=== PATIENT | male | born 1950 | race Caucasian/White ===

== ENCOUNTER 2016-10-31 18:11 | Emergency (ER) | payer OTHER ==
[2016-10-31 18:38] VITALS: BP 145/89
[2016-10-31] MEDS ORDERED: Sodium Chloride 0.9% 10 ML Syringe FLUSH PRN (19:07)
--- NOTE | 2016-10-31 19:14 | EDM.PDOC ---
ED HPI GENERAL MEDICAL PROBLEM - General Chief Complaint: Lower Extremity Injury/Pain Stated Complaint: RIGHT LEG SWOLLEN Time Seen by Provider: 10/31/16 18:50 Source of Information: Reports: Patient History Limitations: Reports: No Limitations - History of Present Illness INITIAL COMMENTS - FREE TEXT/NARRATIVE: Patient is a 66-year-old male who presents to the ED complaining or right leg swelling. States this developed approximately one to 2 wks ago that has progressively getting worse. Has mild pain associated to his foot and lower leg due to the tautness of skin. He does have multiple small abrasions to the lower aspect of his legs secondary to new kitten scratching and biting him. There is no increased warmth or redness noted. There is no purulent drainage noted. Patient's concern he may have a blood clot. He underwent mitral valve replacement, tissue valve replacement in January of 2016. He is not on any water pills or aspirin at this time. Denies CP, SOB, Fever/chills, n/v, abdominal pain, or any additional complaints. Additional history hypercholesterolemia, hypertension, ulcerative colitis, migraines. Surgical history mitral valve replacement, carotid endarterectomy bilateral, colonoscopy. He has no history of DVT/PE. Right Feet Pain Score (Numeric/FACES): 3 - Related Data Allergies Allergy/AdvReac Type Severity Reaction Status Date / Time No Known Allergies Allergy Verified 03/24/16 14:37 Home Meds: Home Meds Lansoprazole [Prevacid] 30 mg PO ASDIRECTED 02/23/16 [History] Metoprolol Tartrate [Lopressor] 25 mg PO Q12HR 02/23/16 [History] Naproxen Sodium [Aleve] 220 mg PO ASDIRECTED PRN 02/23/16 [History] traMADol HCl [Ultram] 50 mg PO Q4H PRN 02/23/16 [History] Aspirin [Halfprin] 81 mg PO DAILY 10/31/16 [History] Past Medical History HEENT History: Reports: Impaired Vision Other HEENT History: wears eyeglasses Cardiovascular History: Reports: Heart Murmur, High Cholesterol, Hypertension, Other (See Below) Other Cardiovascular History: mitral valve replaced Other Gastrointestinal History: ulcertive colitis Neurological History: Reports: Migraines Endocrine/Metabolic History: Reports: Other (See Below) Other Endocrine/Metabolic History: states has hypoglycemia - Infectious Disease History Infectious Disease History: Reports: Chicken Pox, Measles, Mumps, Rheumatic Fever - Past Surgical History Cardiovascular Surgical History: Reports: Carotid Endarterectomy GI Surgical History: Reports: Colonoscopy Social & Family History - Tobacco Use Smoking Status *Q: Never Smoker Second Hand Smoke Exposure: No - Caffeine Use Caffeine Use: Reports: Coffee - Alcohol Use Days Per Week of Alcohol Use: 0 - Recreational Drug Use Recreational Drug Use: No Review of Systems - Review of Systems Review Of Systems: See Below Constitutional: Denies: Fever Respiratory: Denies: Shortness of Breath, Wheezing, Pleuritic Chest Pain, Cough , Sputum, Hemoptysis Cardiovascular: Reports: Edema. Denies: Chest Pain, Irregular Heart Rate, Lightheadedness, Palpitations, Syncope GI/Abdominal: Denies: Abdominal Pain, Diarrhea, Nausea, Vomiting Genitourinary: Denies: Dysuria Musculoskeletal: Reports: Leg Pain Skin: Reports: Wound. Denies: Rash Neurological: Denies: Numbness, Tingling, Difficulty Walking ED EXAM, GENERAL - Physical Exam Exam: See Below Exam Limited By: No Limitations General Appearance: Alert, WD/WN, No Apparent Distress Ears: Hearing Grossly Normal Nose: Normal Inspection Throat/Mouth: Normal Inspection, Normal Oropharynx, Normal Voice, No Airway Compromise Head: Atraumatic, Normocephalic Neck: Normal Inspection, Supple, Non-Tender, Full Range of Motion. No: Carotid Bruit, Lymphadenopathy (L), Lymphadenopathy (R) Respiratory/Chest: No Respiratory Distress, Lungs Clear, Normal Breath Sounds, No Accessory Muscle Use, Chest Non-Tender Cardiovascular: Normal Peripheral Pulses, Regular Rate, Rhythm, Systolic Murmur Peripheral Pulses: 2+: Radial (R), Posterior Tibial (L), Posterior Tibial (R), Dorsalis Pedis (L), Dorsalis Pedis (R) GI/Abdominal: Normal Bowel Sounds, Soft, Non-Tender, No Organomegaly, No Distention Back Exam: Normal Inspection Extremities: Normal Range of Motion, Normal Capillary Refill, Pedal Edema (2+ right leg up to knee, minimal pain, no redness/drainage/purulent drainage. Multiple small abrasions to lower leg. ) Neurological: Alert, Oriented, CN II-XII Intact, Normal Cognition, No Motor/ Sensory Deficits Psychiatric: Normal Affect, Normal Mood Skin Exam: Warm, Dry, Normal Color Course - Vital Signs Last Recorded V/S: Last Vital Signs Temp 97.4 F 10/31/16 18:36 Pulse 86 10/31/16 18:36 Resp 20 10/31/16 18:36 BP 145/89 H 10/31/16 18:36 Pulse Ox 98 10/31/16 18:36 - Orders/Labs/Meds Orders: Active Orders 24 hr Category Date Time Status Peripheral IV Care [RC] . DIRECTED Care 10/31/16 19:08 Active VL Duplex Lwr Ext Veins Ltd Rt [US] Stat Exams 10/31/16 19:07 Taken Peripheral IV Insertion Adult [OM.PC] Stat Oth 10/31/16 19:07 Ordered Labs: Laboratory Tests 10/31/16 10/31/16 10/31/16 Range/Units 19:37 19:37 19:37 WBC 9.50 H (4.23-9.07) K/mm3 RBC 5.11 (4.63-6.08) M/mm3 Hgb 15.4 (13.7-17.5) gm/L Hct 44.7 (40.1-51.0) % MCV 87.5 (79.0-92.2) fl MCH 30.1 (25.7-32.2) pg MCHC 34.5 (32.2-35.5) g/dl RDW Std Deviation 46.7 H (35.1-43.9) fL Plt Count 208 (163-337) K/mm3 MPV 9.7 (9.4-12.3) fl Neut % (Auto) 54.3 (34.0-67.9) % Lymph % (Auto) 30.2 (21.8-53.1) % Baca % (Auto) 8.8 (5.3-12.2) % Eos % (Auto) 5.7 (0.8-7.0) Baso % (Auto) 0.7 (0.1-1.2) % Neut # (Auto) 5.15 (1.78-5.38) K/mm3 Lymph # (Auto) 2.87 (1.32-3.57) K/mm3 Baca # (Auto) 0.84 H (0.30-0.82) K/mm3 Eos # (Auto) 0.54 (0.04-0.54) K/mm3 Baso # (Auto) 0.07 (0.01-0.08) K/mm3 PT 10.9 (8.0-13.0) SECONDS INR 1.00 APTT 29 (22-36) SECONDS D-Dimer, Quantitative (0.19-0.59) mg/L Sodium 138 (136-145) mEq/L Potassium 4.2 (3.5-5.1) mEq/L Chloride 102 (98-107) mEq/L Carbon Dioxide 24 (21-32) mEq/L Anion Gap 16.2 H (5-15) BUN 22 H (7-18) mg/dL Creatinine 1.0 (0.7-1.3) mg/dL Est Cr Clr Drug Dosing 72.20 mL/min Estimated GFR (MDRD) > 60 (>60) mL/min BUN/Creatinine Ratio 22.0 H (14-18) Glucose 103 (80-115) mg/dL Calcium 8.8 (8.5-10.1) mg/dL Total Bilirubin 0.5 (0.2-1.0) mg/dL AST 21 (15-37) U/L ALT (16-63) U/L Alkaline Phosphatase (46-116) U/L C-Reactive Protein 0.8 (<1.0) mg/dL Total Protein 7.6 (6.4-8.2) g/dl Albumin 3.9 (3.4-5.0) g/dl Globulin 3.7 gm/dL Albumin/Globulin Ratio 1.1 (1-2) 10/31/16 Range/Units 19:37 WBC (4.23-9.07) K/mm3 RBC (4.63-6.08) M/mm3 Hgb (13.7-17.5) gm/L Hct (40.1-51.0) % MCV (79.0-92.2) fl MCH (25.7-32.2) pg MCHC (32.2-35.5) g/dl RDW Std Deviation (35.1-43.9) fL Plt Count (163-337) K/mm3 MPV (9.4-12.3) fl Neut % (Auto) (34.0-67.9) % Lymph % (Auto) (21.8-53.1) % Baca % (Auto) (5.3-12.2) % Eos % (Auto) (0.8-7.0) Baso % (Auto) (0.1-1.2) % Neut # (Auto) (1.78-5.38) K/mm3 Lymph # (Auto) (1.32-3.57) K/mm3 Baca # (Auto) (0.30-0.82) K/mm3 Eos # (Auto) (0.04-0.54) K/mm3 Baso # (Auto) (0.01-0.08) K/mm3 PT (8.0-13.0) SECONDS INR APTT (22-36) SECONDS D-Dimer, Quantitative 0.48 (0.19-0.59) mg/L Sodium (136-145) mEq/L Potassium (3.5-5.1) mEq/L Chloride (98-107) mEq/L Carbon Dioxide (21-32) mEq/L Anion Gap (5-15) BUN (7-18) mg/dL Creatinine (0.7-1.3) mg/dL Est Cr Clr Drug Dosing mL/min Estimated GFR (MDRD) (>60) mL/min BUN/Creatinine Ratio (14-18) Glucose (80-115) mg/dL Calcium (8.5-10.1) mg/dL Total Bilirubin (0.2-1.0) mg/dL AST (15-37) U/L ALT (16-63) U/L Alkaline Phosphatase (46-116) U/L C-Reactive Protein (<1.0) mg/dL Total Protein (6.4-8.2) g/dl Albumin (3.4-5.0) g/dl Globulin gm/dL Albumin/Globulin Ratio (1-2) Meds: Medications Discontinued Medications Generic Name Dose Route Start Last Admin Trade Name Freq PRN Reason Stop Dose Admin Sodium Chloride 10 ml 10/31/16 19:07 10/31/16 19:39 Saline Flush FLUSH 10 ml ASDIRECTED PRN Administration Keep Vein Open - Re-Assessments/Exams Free Text/Narrative Re-Assessment/Exam: Ordered peripheral IV, CBC, chem 14, CRP, PT/INR, PTT, also in the right lower extremity, and d-dimer. Also in the right lower leg impression normal right lower extremity duplex venous ultrasound.. Labs reviewed: CBC and chem 14 essentially normal. CRP within normal limits.D- dimer was within normal limits. Differential diagnosis for your unilateral swelling includes venous insufficiency, cellulitis, DVT, as well obstruction of vascular structures secondary to tumor/cancer. The patient does not have a DVT and labs and clinical findings do not suggest cellulitis. Patient denies any history of cancer. Thus most likely associated with venous insufficiency. Swelling does improve overnight with laying flat. LEORA stockings have been ordered and the patient will be discharged home. He will follow up with his primary care provider in one week for further evaluation and treatment. Discharge instructions as documented. Departure - Departure Time of Disposition: 20:59 Disposition: Home, Self-Care 01 Condition: good Clinical Impression: Swelling of right lower extremity - Discharge Information Instructions: Peripheral Edema Referrals: Radha Spicer PA-C [Primary Care Provider] - Rahel Darby [Physician] - Forms: ED Department Discharge Additional Instructions: Wear leora stocking most hours of the day. Elevating when able to reduce swelling. Call and make an appt with Dr. Ray [facility]CP [facility] tomorrow to be evaluated in one wk. Return to the E.D. for any new or worsening symptoms. - My Orders Last 24 Hours: My Active Orders 10/31/16 19:07 VL Duplex Lwr Ext Veins Ltd Rt [US] Stat Peripheral IV Insertion Adult [OM.PC] Stat 10/31/16 19:08 Peripheral IV Care [RC] . DIRECTED - Assessment/Plan Last 24 Hours: My Active Orders 10/31/16 19:07 VL Duplex Lwr Ext Veins Ltd Rt [US] Stat Peripheral IV Insertion Adult [OM.PC] Stat 10/31/16 19:08 Peripheral IV Care [RC] . DIRECTED
--- NOTE | 2016-11-01 13:03 | US ---
Right lower extremity deep venous ultrasound: Duplex and color flow imaging was obtained of the right common femoral, proximal greater saphenous, superficial femoral, popliteal, posterior tibial and peroneal veins. Left common femoral vein was also evaluated. Findings: Subcutaneous edema noted within the right calf. Normal phasic flow, augmentation and compression are seen. Impression: 1. Soft tissue edema within the calf. 2. No evidence of deep venous thrombosis is seen within the right lower extremity or within the left common femoral vein. Diagnostic code #2 Agree with preliminary report issued by [facility] ([facility] preliminary report dictated on 10/31/16, 9:33 PM Central Time)
== END 2016-10-31 21:10 | disposition home or self-care (01) ==
LOC: JD.ED 18:11
DX: M79.89 Other specified soft tissue disorders (principal); I10 Essential (primary) hypertension; E78.00 Pure hypercholesterolemia, unspecified; G43.909 Migraine, unspecified, not intractable, without status migrainosus; Z98.890 Other specified postprocedural states; Z79.82 Long term (current) use of aspirin; Z95.2 Presence of prosthetic heart valve
CPT/HCPCS: 36415; 80053; 85025; 85379; 85610; 85730; 86140; 93971; 99284; J7050; 99283

== ENCOUNTER 2017-12-07 02:17 | Emergency (ER) | payer OTHER, MEDICARE ==
[2017-12-07] MEDS ORDERED: Morphine 10 MG/ML Syringe IVPUSH ONE (03:16)
[2017-12-07] MEDS ORDERED: Sodium Chloride 0.9% 1,000 ML IV SCH (03:30)
[2017-12-07] MEDS ORDERED: Ondansetron 4 MG/2 ML SDV IVPUSH ONE (03:34)
[2017-12-07] MEDS ORDERED: Iopamidol 612 MG/ML 150 ML Bottle IVPUSH ONE (04:32)
[2017-12-07] MEDS ORDERED: Diatrizoate Meglumine/Diatrizoate Sodium 37% 120 ML Bottle PO ONE (04:32)
--- NOTE | 2017-12-07 06:14 | EDM.PDOC ---
Addendum entered and electronically signed by Alen Hunter MD 12/07/17 08 :56: I was able to speak to his Pippa in regards to the radiologist's finding of 2 small stones within the neck of the gallbladder. They will follow-up as needed. Addendum entered and electronically signed by Alen Hunter MD 12/07/17 08 :47: Radiologist reports several samll gallstones are appreciated in the neck of the gallbladder.No gallbladder wall thickening appreciated. no rosana cholecystic fluid. Original Note: <Alen Hunter - Last Filed: 12/07/17 08:18> ED HPI GENERAL MEDICAL PROBLEM - General Chief Complaint: Abdominal Pain Stated Complaint: ABDOMINAL PAIN Time Seen by Provider: 12/07/17 02:57 - Related Data Allergies Allergy/AdvReac Type Severity Reaction Status Date / Time No Known Allergies Allergy Verified 12/07/17 02:34 Home Meds: Home Meds Lansoprazole [Prevacid] 30 mg PO ASDIRECTED 02/23/16 [History] Metoprolol Tartrate [Lopressor] 25 mg PO Q12HR 02/23/16 [History] Naproxen Sodium [Aleve] 220 mg PO ASDIRECTED PRN 02/23/16 [History] traMADol HCl [Ultram] 50 mg PO Q4H PRN 02/23/16 [History] Aspirin [Halfprin] 81 mg PO DAILY 10/31/16 [History] Course - Vital Signs Last Recorded V/S: Last Vital Signs Temp 98.5 F 12/07/17 02:30 Pulse 66 12/07/17 08:25 Resp 14 12/07/17 08:25 BP 115/82 12/07/17 08:25 Pulse Ox 97 12/07/17 08:25 - Orders/Labs/Meds Labs: Laboratory Tests 12/07/17 12/07/17 12/07/17 Range/Units 02:32 02:32 02:32 WBC 8.06 (4.23-9.07) K/mm3 RBC 5.16 (4.63-6.08) M/mm3 Hgb 15.6 (13.7-17.5) gm/L Hct 45.8 (40.1-51.0) % MCV 88.8 (79.0-92.2) fl MCH 30.2 (25.7-32.2) pg MCHC 34.1 (32.2-35.5) g/dl RDW Std Deviation 47.6 H (35.1-43.9) fL Plt Count 206 (163-337) K/mm3 MPV 9.6 (9.4-12.3) fl Neutrophils % (Manual) 64 H (40-60) % Band Neutrophils % 0 (0-10) % Lymphocytes % (Manual) 14 L (20-40) % Atypical Lymphs % 7 % Monocytes % (Manual) 9 (2-10) % Eosinophils % (Manual) 5 (0.8-7.0) % Basophils % (Manual) 1 (0.2-1.2) Platelet Estimate Adequate Plt Morphology Comment Normal RBC Morph Comment Normal Sodium 141 (136-145) mEq/L Potassium 4.1 (3.5-5.1) mEq/L Chloride 104 (98-107) mEq/L Carbon Dioxide 29 (21-32) mEq/L Anion Gap 12.1 (5-15) BUN 26 H (7-18) mg/dL Creatinine 1.1 (0.7-1.3) mg/dL Est Cr Clr Drug Dosing TNP Estimated GFR (MDRD) > 60 (>60) mL/min BUN/Creatinine Ratio 23.6 H (14-18) Glucose 131 H (80-115) mg/dL Lactic Acid (0.4-2.0) mmol/L Calcium 9.6 (8.5-10.1) mg/dL Total Bilirubin 0.6 (0.2-1.0) mg/dL AST 44 H (15-37) U/L ALT 65 H (16-63) U/L Alkaline Phosphatase 78 (46-116) U/L Troponin I < 0.017 (0.00-0.056) ng/mL Total Protein 7.7 (6.4-8.2) g/dl Albumin 3.9 (3.4-5.0) g/dl Globulin 3.8 gm/dL Albumin/Globulin Ratio 1.0 (1-2) Lipase 279 (73-393) U/L 12/07/17 Range/Units 03:30 WBC (4.23-9.07) K/mm3 RBC (4.63-6.08) M/mm3 Hgb (13.7-17.5) gm/L Hct (40.1-51.0) % MCV (79.0-92.2) fl MCH (25.7-32.2) pg MCHC (32.2-35.5) g/dl RDW Std Deviation (35.1-43.9) fL Plt Count (163-337) K/mm3 MPV (9.4-12.3) fl Neutrophils % (Manual) (40-60) % Band Neutrophils % (0-10) % Lymphocytes % (Manual) (20-40) % Atypical Lymphs % % Monocytes % (Manual) (2-10) % Eosinophils % (Manual) (0.8-7.0) % Basophils % (Manual) (0.2-1.2) Platelet Estimate Plt Morphology Comment RBC Morph Comment Sodium (136-145) mEq/L Potassium (3.5-5.1) mEq/L Chloride (98-107) mEq/L Carbon Dioxide (21-32) mEq/L Anion Gap (5-15) BUN (7-18) mg/dL Creatinine (0.7-1.3) mg/dL Est Cr Clr Drug Dosing Estimated GFR (MDRD) (>60) mL/min BUN/Creatinine Ratio (14-18) Glucose (80-115) mg/dL Lactic Acid 2.0 (0.4-2.0) mmol/L Calcium (8.5-10.1) mg/dL Total Bilirubin (0.2-1.0) mg/dL AST (15-37) U/L ALT (16-63) U/L Alkaline Phosphatase (46-116) U/L Troponin I (0.00-0.056) ng/mL Total Protein (6.4-8.2) g/dl Albumin (3.4-5.0) g/dl Globulin gm/dL Albumin/Globulin Ratio (1-2) Lipase (73-393) U/L Meds: Medications Discontinued Medications Generic Name Dose Route Start Last Admin Trade Name Freq PRN Reason Stop Dose Admin Al Hydroxide/Mg Hydroxide 30 0 ml 12/07/17 06:27 12/07/17 06:38 ml/ Lidocaine HCl 15 ml PO 12/07/17 06:28 45 ml ONETIME ONE Administration Diatrizoate Meglum/Diatrizoate Sod 90 ml 12/07/17 04:32 12/07/17 05:09 Gastrografin 37% PO 12/07/17 04:33 90 ml ONETIME ONE Administration Sodium Chloride 1,000 mls @ 125 mls/hr 12/07/17 03:30 12/07/17 03:28 Normal Saline IV 125 mls/hr ASDIRECTED BARBER Administration Sodium Chloride 500 mls @ 500 mls/hr 12/07/17 06:28 12/07/17 06:39 Normal Saline IV 12/07/17 07:27 500 mls/hr .BOLUS ONE Administration Iopamidol 125 ml 12/07/17 04:32 12/07/17 05:09 Isovue-300 (61%) IVPUSH 12/07/17 04:33 125 ml ONETIME ONE Administration Magnesium Citrate 240 ml 12/07/17 08:19 Citrate Of Magnesia PO 12/07/17 08:20 ONETIME ONE Morphine Sulfate 6 mg 12/07/17 03:16 12/07/17 03:28 Morphine IVPUSH 12/07/17 03:17 6 mg ONETIME ONE Administration Ondansetron HCl 4 mg 12/07/17 03:34 12/07/17 03:39 Zofran IVPUSH 12/07/17 03:35 4 mg ONETIME ONE Administration - Re-Assessments/Exams Free Text/Narrative Re-Assessment/Exam: 12/07/17 08:18 ultrasound of the gallbladder is normal. There is no gallbladder wall thickening. No stones identified. Reexamined the patient reveals him to be nontender. He does remain somewhat distended. I believe this is likely secondary to increased stool throughout the ascending colon and transverse colon identified on CT exam. Plan I'm going to give the patient 7 ounces of magnesium citrate to drink with 5-6 ounces of juice of choice to provide bowel cleanse. He can do this at home. Departure - Departure Disposition: Home, Self-Care 01 Clinical Impression: Fluid volume depletion, Renal stones Abdominal pain Qualifiers: Abdominal location: upper abdomen, unspecified Qualified Code(s): R10.10 - Upper abdominal pain, unspecified - Discharge Information Instructions: Abdominal Pain, Adult, [id number], Kidney Stones, [id number] Referrals: Chyna Corona MD [Primary Care Provider] - 3 Days Forms: ED Department Discharge Additional Instructions: Evaluation the emergency room this morning in regards to development of diffuse abdominal pain particularly right upper quadrant abdominal pain that awoke him from sleep. Dr. Levi had evaluated you and felt there was some possibility of potential gallbladder involvement in your pain syndrome. You're very tender in the right upper quadrant of the abdomen on examination. CT scan of the abdomen had been performed which revealed no obvious gallstones and no gallbladder wall thickening or fluid around the gallbladder to suggest acute inflammation. Laboratory tests also came back negative in this regard showing no signs of infection or inflammation. I noted on the CT scan that there is increased stool throughout the right hemicolon and the transverse colon which lives across the upper abdomen and the right side of the abdomen. I also could not identify any other abnormalities on CT exam. An ultrasound of the gallbladder had already been ordered and was carried out this morning . It too does not reveal any signs of gallstones or active inflammation of the gallbladder. I suspect recurrent pain syndrome is due to constipation involving the right hemicolon. Suggest treatment with magnesium citrate or Citroma 8 ounces by mouth mixed with 3-4 ounces of juice of choice. Take this when you get home this morning. He will take 1-2 hours to work but will usually make her bowels work 3-4 times often ending in some degree of diarrhea. This should relieve your abdominal pain and discomfort. Pain or discomfort after bowel cleanse then consider returning to medical care. In review of this chart and the patient's laboratory/ultrasound findings there are gallstones noted to be in the neck of the gallbladder. Patient should be notified of these findings and given referral to surgery for follow-up. ( ) <Liza Levi - Last Filed: 12/08/17 06:51> ED HPI GENERAL MEDICAL PROBLEM - General Source of Information: Reports: Patient, Family History Limitations: Reports: No Limitations - History of Present Illness Onset: Sudden Duration: Hour(s): (36) Location: Reports: Abdomen Quality: Reports: Ache, Sharp Severity: Severe Improves with: Reports: None Worsens with: Reports: Movement Associated Symptoms: Reports: Headaches, Malaise, Nausea/Vomiting, Shortness of Breath (secondary to pain). Denies: Chest Pain, Diaphoresis, Fever/Chills, Rash , Seizure, Syncope Abdominal Pain Score (Numeric/FACES): 10 Past Medical History HEENT History: Reports: Impaired Vision Other HEENT History: wears eyeglasses Cardiovascular History: Reports: Heart Murmur, High Cholesterol, Hypertension, Other (See Below) Other Cardiovascular History: mitral valve replaced Other Gastrointestinal History: ulcertive colitis Neurological History: Reports: Migraines Endocrine/Metabolic History: Reports: Other (See Below) Other Endocrine/Metabolic History: states has hypoglycemia - Infectious Disease History Infectious Disease History: Reports: Chicken Pox, Measles, Mumps, Rheumatic Fever - Past Surgical History Cardiovascular Surgical History: Reports: Carotid Endarterectomy GI Surgical History: Reports: Colonoscopy Social & Family History - Tobacco Use Smoking Status *Q: Never Smoker - Caffeine Use Caffeine Use: Reports: Coffee ED ROS GENERAL - Review of Systems Review Of Systems: See Below Constitutional: Denies: Fever, Chills, Weakness HEENT: Reports: No Symptoms Respiratory: Reports: No Symptoms Cardiovascular: Reports: No Symptoms Endocrine: Reports: No Symptoms GI/Abdominal: Reports: Abdominal Pain, Distension, Nausea. Denies: Black Stool , Bloody Stool, Constipation, Diarrhea, Decreased Appetite, Difficulty Swallowing, Flatus, Hematemesis, Hematochezia, Melena, Vomiting : Reports: No Symptoms Musculoskeletal: Reports: No Symptoms Skin: Reports: No Symptoms Neurological: Reports: Dizziness, Headache Psychiatric: Reports: No Symptoms Hematologic/Lymphatic: Reports: No Symptoms Immunologic: Reports: No Symptoms ED EXAM, GI/ABD - Physical Exam Exam: See Below Exam Limited By: No Limitations General Appearance: Alert, Anxious, Moderate Distress Eyes: Bilateral: Normal Appearance, EOMI Ears: Normal External Exam, Normal Canal, Hearing Grossly Normal Nose: Normal Inspection, Normal Mucosa, No Blood Throat/Mouth: Normal Inspection, Normal Lips, Normal Teeth, Normal Gums, Normal Oropharynx, Normal Voice, No Airway Compromise Head: Atraumatic, Normocephalic Neck: Normal Inspection, Supple, Non-Tender, Full Range of Motion Respiratory/Chest: No Respiratory Distress, Lungs Clear, Normal Breath Sounds, No Accessory Muscle Use, Chest Non-Tender. No: Respiratory Distress Cardiovascular: Normal Peripheral Pulses, Regular Rate, Rhythm, No Edema, No Murmur GI/Abdominal Exam: Soft, Guarding, Tender. No: Non-Tender, No Distention, No Abnormal Bruit, No Mass Rectal (Males) Exam: Normal Exam, Normal Rectal Tone, Heme - Stool. No: Black Stool, Bloody Stool Back Exam: Normal Inspection, Full Range of Motion Extremities: Normal Inspection, Normal Range of Motion, Non-Tender, Normal Capillary Refill, Pedal Edema. No: Leg Pain, Redness Neurological: Alert, Oriented, CN II-XII Intact, Normal Cognition, Normal Gait Psychiatric: Normal Affect, Normal Mood Skin Exam: Warm, Dry, Intact, Normal Color, No Rash Lymphatic: Adenopathy Course - Radiology Interpretation Free Text/Narrative:: Patient had a CAT scan of the abdomen and pelvis with contrast. Impression is no acute findings to explain reported syndromes. Patient was not found to have an aneurysm. He did have a small fat-containing umbilical hernia. Degenerative changes in the spine and particularly L5 on S1. Patient was noted to have a large duodenal diverticulum but no intestinal obstruction. He has colonic diverticuli and are identified but there is no evidence of CT with diverticulitis. Departure - Departure Time of Disposition: 06:15 Condition: Good - Discharge Information *PRESCRIPTION DRUG MONITORING PROGRAM REVIEWED*: Not Applicable *COPY OF PRESCRIPTION DRUG MONITORING REPORT IN PATIENT JUAN: Not Applicable
[2017-12-07] MEDS ORDERED: Alum Hydrox/Mag Hydrox/Simeth 30 ML, Lidocaine 2% 15 ML PO ONE ×2 (06:27)
[2017-12-07] MEDS ORDERED: Sodium Chloride 0.9% 500 ML IV ONE (06:28)
[2017-12-07] MEDS ORDERED: Magnesium Citrate Solution 296 ML Bottle PO ONE (08:19)
[2017-12-07 08:34] VITALS: BP 115/82
--- NOTE | 2017-12-07 08:43 | US ---
Limited abdominal ultrasound: Multiple real-time images of the upper right abdomen were obtained. Comparison: Previous ultrasound exam is not available, recent CT study of 12/07/17 at 5 AM) Liver is echogenic compatible with fatty infiltration. Slight focal fatty sparing is seen next to the gallbladder. No gallbladder wall thickening is seen. Several gallstones are felt to be present within the gallbladder neck. No biliary duct dilatation is seen. Small cyst is identified within the upper right kidney measuring about 1.1 cm. Right kidney is otherwise unremarkable by ultrasound exam. Inferior vena cava is patent. Portal vein shows normal hepatopedal flow. Pancreas is incompletely seen due to bowel gas. Visualized portions of the pancreas are within normal limits. Impression: 1. Fatty infiltration within the liver with focal fatty sparing next to the gallbladder. 2. Several gallstones felt to be present within the gallbladder neck. No gallbladder wall thickening or biliary duct dilatation is seen. 3. Incidental small upper pole renal cyst on the right side. Diagnostic code #3
--- NOTE | 2017-12-07 10:14 | CT ---
CT abdomen and pelvis Technique: Multiple axial sections were obtained from slightly below the top of the liver inferiorly through the pubic symphysis. Intravenous and oral contrast was utilized. Delayed images were also obtained from above the liver inferiorly through the pubic symphysis. Comparison: Prior CT abdomen and pelvis exam of 05/21/14. Findings: Small portion of the visualized lung bases are clear. Elevated right hemidiaphragm is noted. Liver shows fatty infiltration. No focal abnormality is appreciated within the liver. Gallbladder contains no calcified gallstones. Spleen appears within normal limits. Adrenal glands show no nodule. Pancreas appears within normal limits. Kidneys show symmetric contrast enhancement without hydronephrosis. Small cyst is noted inferiorly within the right kidney measuring about 1 cm. 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 No ureteral dilatation is seen. Bladder shows contrast. Aorta shows atherosclerotic change which continues into the iliac vessels. Prior surgery noted within the anterior right lower abdomen/pelvis. No free fluid or inflammatory change is seen. Mild colonic diverticuli are seen with no inflammatory change. Incidental duodenal diverticulum seen off the fourth portion measuring about 5.2 cm in size. Bone window settings were reviewed which show diffuse degenerative change within the spine. Mild spondylolisthesis seen at L5-S1 due to bilateral spondylolytic defects. Appendix believed to be visualized and appears within normal limits. Impression: 1. Incidental findings as noted above. Nothing acute is appreciated on CT study of the abdomen and pelvis. Diagnostic code #2 I agree with preliminary report issued by [employer] ([facility] report finalized on 12/07/17, 6:50 AM Central Time)
== END 2017-12-07 08:30 | disposition home or self-care (01) ==
LOC: JD.ED 02:17
DX: N20.2 Calculus of kidney with calculus of ureter (principal); E86.9 Volume depletion, unspecified; R10.10 Upper abdominal pain, unspecified; I10 Essential (primary) hypertension; E78.00 Pure hypercholesterolemia, unspecified; Z79.899 Other long term (current) drug therapy; Z79.82 Long term (current) use of aspirin
CPT/HCPCS: 36415; 74177; 76705; 80053; 83605; 83690; 84484; 85007; 85027; 96361; 96374; 96375; 99285; A9270; J2270; J2405; J7040; Q9963; Q9967; 99284

== ENCOUNTER 2018-01-06 22:36 | Emergency (ER) | payer OTHER, MEDICARE ==
[2018-01-06 22:49] VITALS: BP 165/91
--- NOTE | 2018-01-06 23:07 | EDM.PDOC ---
ED HPI GENERAL MEDICAL PROBLEM - General Chief Complaint: Abdominal Pain Stated Complaint: STOMACH PAIN Time Seen by Provider: 01/06/18 23:07 Source of Information: Reports: Patient History Limitations: Reports: No Limitations - History of Present Illness INITIAL COMMENTS - FREE TEXT/NARRATIVE: 67-year-old male presents the ED with acute onset of severe epigastric right upper quadrant abdominal pain. He states he feels diffusely bloated. He has dry heaves without any emesis. States she's been having similar type pains the last several weeks. Investigations done here suggested he had several small stones in the neck of his gallbladder by ultrasound. Subsequent he has gone to [place] and was in hospital for 2 days last week Tuesday and Tuesday with no positive findings of stones. In hospital because of his abdominal pain. He has been fine up until tonight. He ate a subset which which contain meatballs for supper. States the pain is 10 out of 10. No position is comfortable. Pain does not radiate through to his back or into his retrosternal chest. States it radiates along the right costal margin towards his right flank. He apparently had an ultrasound of his gallbladder performed in [place] as well as a HIDA scan which proved to be negative. He did have a CT scan when he was seen in the ED 2 weeks ago here. Onset: Today, Sudden Onset Date: 01/06/18 Onset Time: 21:30 Duration: Hour(s): Location: Reports: Abdomen Quality: Reports: Ache, Other Severity: Severe (Pain is constant with a mild colicky component) Improves with: Reports: None ( 10 out of 10) Worsens with: Reports: Other Context: Denies: Activity, Exercise (Movement and deep breathing make it worse) , Lifting, Sick Contact, Trauma, Other Associated Symptoms: Reports: Shortness of Breath (Unable to take a full deep breath as it makes his abdominal pain worse). Denies: No Other Symptoms, Confusion, Chest Pain, Cough, cough w sputum, Diaphoresis, Fever/Chills, Headaches, Loss of Appetite, Malaise, Seizure, Syncope Treatments VALVE TESTER: Reports: Other (see below) Middle Abdomen Pain Score (Numeric/FACES): 10 - Related Data Allergies Allergy/AdvReac Type Severity Reaction Status Date / Time No Known Allergies Allergy Verified 01/06/18 22:49 Home Meds: Home Meds Metoprolol Tartrate [Lopressor] 25 mg PO Q12HR 02/23/16 [History] Aspirin [Halfprin] 81 mg PO DAILY 10/31/16 [History] Omeprazole Magnesium [Prilosec Otc] 20 mg PO DAILY 01/06/18 [History] Dicyclomine [Bentyl] 20 mg PO Q6H PRN #5 tablet 01/07/18 [Rx] Ondansetron [Zofran] 4 mg BUCCAL Q6H PRN #5 tab 01/07/18 [Rx] oxyCODONE HCl/Acetaminophen [Percocet 5-325 mg Tablet] 2 each PO Q4H PRN #12 tablet 01/07/18 [Rx] Past Medical History HEENT History: Reports: Impaired Vision Other HEENT History: wears eyeglasses Cardiovascular History: Reports: Heart Murmur, Heart Valve Replacement (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.), High Cholesterol, Hypertension, Other (See Below) Other Cardiovascular History: mitral valve replaced Gastrointestinal History: Reports: GERD Other Gastrointestinal History: ulcertive colitis Neurological History: Reports: Migraines Endocrine/Metabolic History: Reports: Other (See Below) Other Endocrine/Metabolic History: states has hypoglycemia - Infectious Disease History Infectious Disease History: Reports: Chicken Pox, Measles, Mumps, Rheumatic Fever - Past Surgical History Cardiovascular Surgical History: Reports: Carotid Endarterectomy GI Surgical History: Reports: Colonoscopy, Hernia, Inguinal (Right side with mesh graft placement) Social & Family History - Tobacco Use Smoking Status *Q: Never Smoker - Caffeine Use Caffeine Use: Reports: Coffee - Recreational Drug Use Recreational Drug Use: No - Living Situation & Occupation Living situation: Reports: Occupation: Employed ED ROS GENERAL - Review of Systems Review Of Systems: See Below (More tonight as he can't take a full deep breath as it makes the abdominal pain worse.) Constitutional: Reports: Decreased Appetite. Denies: Fever, Chills, Malaise, Weakness, Fatigue, Weight Loss HEENT: Reports: No Symptoms Respiratory: Reports: Shortness of Breath. Denies: Wheezing, Pleuritic Chest Pain Cardiovascular: Reports: Blood Pressure Problem. Denies: Chest Pain, Claudication, Dyspnea on Exertion, Edema, Lightheadedness, Orthopnea Endocrine: Reports: No Symptoms GI/Abdominal: Reports: Abdominal Pain (History of present illness.), Nausea, Vomiting (Heaves tonight associated with the abdominal pain). Denies: Diarrhea : Reports: Frequency (Frequency with nocturia 2), Other Musculoskeletal: Reports: Back Pain, Joint Pain Skin: Reports: No Symptoms (Knees hips at times) Neurological: Reports: No Symptoms Psychiatric: Reports: No Symptoms Hematologic/Lymphatic: Reports: No Symptoms Immunologic: Reports: No Symptoms ED EXAM, GI/ABD - Physical Exam Exam: See Below Exam Limited By: No Limitations General Appearance: Alert, Moderate Distress (He is in obvious pain and discomfort. His abdomen does appear to be quite distended.) Eyes: Bilateral: Normal Appearance (No jaundice) Throat/Mouth: Normal Inspection, Normal Lips, Normal Oropharynx Head: Atraumatic, Normocephalic Neck: Normal Inspection, Supple, Non-Tender, Full Range of Motion. No: Carotid Bruit, Lymphadenopathy (L), Lymphadenopathy (R), Thyromegaly Respiratory/Chest: Lungs Clear (Mild tachypnea at rest), Normal Breath Sounds, No Accessory Muscle Use, Respiratory Distress Cardiovascular: Normal Peripheral Pulses, Regular Rate, Rhythm, No Edema, No Gallop, No Murmur, Other (Well-healed midline sternotomy incision) GI/Abdominal Exam: Distended (Absence of bowel sounds. Diffusely distended and firm to palpation with), Tender ( minimal tympany in all 4 quadrants. quizzically tender in the epigastrium right upper quadrant along the costal margin with a positive Darden sign. ), Abnormal Bowel Sounds Back Exam: Normal Inspection, Full Range of Motion. No: CVA Tenderness (L), CVA Tenderness (R) Extremities: Normal Inspection, Normal Range of Motion, Non-Tender, No Pedal Edema Neurological: Alert, Oriented, CN II-XII Intact, Normal Cognition, Normal Gait Psychiatric: Normal Affect, Normal Mood Skin Exam: Warm, Dry, Intact, Normal Color, No Rash Course - Vital Signs Last Recorded V/S: Last Vital Signs Temp 36.4 C 01/06/18 22:41 Pulse 86 01/06/18 22:41 Resp 18 01/06/18 22:41 BP 165/91 H 01/06/18 22:41 Pulse Ox 99 01/06/18 22:41 - Orders/Labs/Meds Orders: Active Orders 24 hr Category Date Time Status Abdomen 1V Flat [CR] Stat Exams 08/17/18 23:16 Taken Abdomen Pelvis w Cont [CT] Stat Exams 01/07/18 00:04 Taken Sodium Chloride 0.9% [Normal Saline] 1,000 ml Med 01/06/18 23:15 Active IV ASDIRECTED Medication Orders Sodium Chloride (Normal Saline) 1,000 mls @ 150 mls/hr IV ASDIRECTED BARBER Last Admin: 01/06/18 23:28 Dose: 150 mls/hr Labs: Laboratory Tests 01/06/18 01/06/18 Range/Units 23:11 23:11 WBC 8.09 (4.23-9.07) K/mm3 RBC 5.01 (4.63-6.08) M/mm3 Hgb 15.2 (13.7-17.5) gm/L Hct 45.0 (40.1-51.0) % MCV 89.8 (79.0-92.2) fl MCH 30.3 (25.7-32.2) pg MCHC 33.8 (32.2-35.5) g/dl RDW Std Deviation 47.0 H (35.1-43.9) fL Plt Count 241 (163-337) K/mm3 MPV 9.6 (9.4-12.3) fl Neutrophils % (Manual) 58 (40-60) % Band Neutrophils % 0 (0-10) % Lymphocytes % (Manual) 33 (20-40) % Atypical Lymphs % 0 % Monocytes % (Manual) 5 (2-10) % Eosinophils % (Manual) 4 (0.8-7.0) % Basophils % (Manual) 0 L (0.2-1.2) Platelet Estimate Adequate RBC Morph Comment Normal Sodium 141 (136-145) mEq/L Potassium 4.1 (3.5-5.1) mEq/L Chloride 106 (98-107) mEq/L Carbon Dioxide 25 (21-32) mEq/L Anion Gap 14.1 (5-15) BUN 23 H (7-18) mg/dL Creatinine 1.0 (0.7-1.3) mg/dL Est Cr Clr Drug Dosing 71.25 mL/min Estimated GFR (MDRD) > 60 (>60) mL/min BUN/Creatinine Ratio 23.0 H (14-18) Glucose 123 H (80-115) mg/dL Calcium 9.1 (8.5-10.1) mg/dL Magnesium 1.9 (1.8-2.4) mg/dl Total Bilirubin 0.5 (0.2-1.0) mg/dL GGT 63 (15-85) U/L AST 41 H (15-37) U/L ALT 54 (16-63) U/L Alkaline Phosphatase 90 (46-116) U/L Troponin I < 0.017 (0.00-0.056) ng/mL C-Reactive Protein 0.5 (<1.0) mg/dL Total Protein 7.5 (6.4-8.2) g/dl Albumin 3.7 (3.4-5.0) g/dl Globulin 3.8 gm/dL Albumin/Globulin Ratio 1.0 (1-2) Lipase 280 (73-393) U/L Meds: Medications Generic Name Dose Route Start Last Admin Trade Name Freq PRN Reason Stop Dose Admin Sodium Chloride 1,000 mls @ 150 mls/hr 01/06/18 23:15 01/06/18 23:28 Normal Saline IV 150 mls/hr ASDIRECTED BARBER Administration Discontinued Medications Generic Name Dose Route Start Last Admin Trade Name Freq PRN Reason Stop Dose Admin Hydromorphone HCl 1 mg 01/06/18 23:14 01/06/18 23:29 Dilaudid IVPUSH 01/06/18 23:15 1 mg ONETIME ONE Administration Iopamidol 125 ml 01/07/18 01:34 01/07/18 01:36 Isovue-300 (61%) IVPUSH 01/07/18 01:35 125 ml ONETIME ONE Administration Metoclopramide HCl 10 mg 01/06/18 23:15 01/06/18 23:28 Reglan IVPUSH 01/06/18 23:16 10 mg ONETIME ONE Administration - Radiology Interpretation Free Text/Narrative:: 67-year-old male presents to the ED with recurrence of severe epigastric right upper quadrant abdominal pain. Been having these type of attack for several weeks with no positive diagnosis made. Recent investigations in [place] revealed no gallstones and a negative HIDA scan. Seen here by Dr. Levi December 07 for similar type pain CT demonstrated a incidental duodenal diverticulum seen off the fourth portion of the duct duodenum measuring about 5.2 cm in size. No gallstones were visualized on that study. An ultrasound was performed the same date. It reveals fatty infiltration within the liver with focal phallus fatty sparing next to the gallbladder. Several gallstones were felt to be present within the gallbladder neck at that time. There is no gallbladder wall thickening or biliary duct dilatation seen. Incidental small upper pole on renal cyst identified on the right side which was seen on CT as well. 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 He is on omeprazole daily. States this seems to control his heartburn. Bowels are working fine. He is in significant pain at this time. Will be given Dilaudid 1 mg IV with Reglan 10 mg IV. Will be done since he is so distended to make sure there is no bowel obstruction. I suspect he will need a repeat CT scan. Concern is whether or not this duodenal diverticulum is large enough to be undergoing intermittent torsion. This is in view of negative gallbladder findings reported in [place]. Labs to be done including a GGT in case he is passing stones through his common bile duct. Serum lipase as well. - Re-Assessments/Exams Free Text/Narrative Re-Assessment/Exam: 01/07/18 00:05: KUB reveals positive gas with a few loops of dilated small bowel compatible with an ileus type pattern. There is a little bit of increased stool in the cecum only but no signs of bowel obstruction. Air is identified. Will therefore proceed with CT of the abdomen and pelvis with oral and IV contrast. KUB reveals mesh graft right lower quadrant compatible with hernia repair 01/07/18 02:40: CT of the abdomen and pelvis has been completed. It reveals a slightly elevated right hemidiaphragm with minimal atelectasis at both lung bases. Renal cyst present inferior pole right kidney. Visualized solid abdominal organs are otherwise unremarkable. Gallbladder is fluid-filled. No radiopaque gallstones or biliary ductal dilatation appreciated. Multiple sigmoid colonic diverticular pressure appreciated without associated inflammatory changes. Did do a duodenal diverticulum appreciated without any signs of inflammation. The bowel is otherwise unremarkable. Contrast reaches the cecum. The appendix is not well visualized. Mild abdominal aortic atherosclerotic calcifications appreciated no abdominal aortic aneurysm is or dissection noted. 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 The urinary bladder is fluid-filled and unremarkable. No intra-peritoneal air small stable fat-containing umbilical hernia without complication mesh graft appreciated in the right lower quadrant. Degenerative changes appreciated particularly at L5-S1 in his back. Patient and reassured of the findings. Clinically he is suffering recurrent biliary colic. However it is possible that he is expressing intermittent ischemia of the got if there is significant atherosclerosis of the proximal superior mesenteric artery. I suggested to the patient that he follow up with Dr. Corona and/or Dr. Calvo--surgeon whom he has seen already once. It is my impression that he is experiencing severe biliary colic likely due to passage of sludge. Unfortunately investigations have not shown any stones and apparently had a normal HIDA scan performed in [place]. I would suggest that he have an upper GI endoscopy to explore the diverticulum off the fourth part of the duodenum to make sure that is not part of the problem. His pain is completely resolved. He has no further upper abdominal pain on examination. I did write a prescription for Percocet tablets 10 5/325 mg strength take 2 tablets at onset of similar type pain with Bentyl 20 mg by mouth and Zofran 4 mg sublingual to see if he can abort the attack. Note this is this third similar attack in the last 4 weeks. Free Text/Narrative Re-Assessment/Exam: 01/07/18 00:34 Labs are back showing a normal white count at 8.09. Differential is normal as well with 58% neutrophils no bands reported. Hemoglobin is 15.2 with hematocrit of 45.0. Platelet count is normal 241,000. Sodium is 141 with a potassium of 4.1. Chloride 106 with a bicarbonate 25. Anion gap is normal at 14.1. BUNs 23 with a creatinine of 1.0. GFR is greater than 60. Glucose is 123 with a calcium of 9.1. Magnesium is normal at 1.9. Total bilirubin is 0.5 with a GGT of 63. AST is minimally elevated at 41 with an ALT at 54. Alk phosphatase is 19. Troponin I is less than 0.017. C-reactive protein is 0.5. Lipase normal at 280. 01/07/18 02:17 CT of the abdomen is essentially normal. The gallbladder is distended but no signs of thickened gallbladder wall or pericholecystic fluid to suggest acute cholecystitis. The pancreas appears normal the common bile duct appears to be 3-4 mm in size in the pancreatic head. I could not visualize the duodenal diverticulum previously appreciated. The colon shows scattered diverticula without any active diverticulitis. There is a small cyst in the inferior pole of the right kidney but no sign of ureteric obstruction. Essentially normal CT of the abdomen. He is no longer tender or having any pain. The history and examination are compatible with recurrent biliary colic. It must be that he is passing sludge since are no stones evident. I suggest that he have follow-up with a surgeon to have an upper GI endoscopy done to explore the fourth part of the duodenum to make sure that the diverticulum is not playing a role in his recurrent pain episodes. As it is my opinion that he would benefit from cholecystectomy. He will follow-up with Dr. Corona his primary care physician and Dr. Lerma --surgeon at [facility]. I'm going to send him home with 10 Percocet 5/325 milligram tablets to be taken 2 at the onset of this type of pain with Zofran 4 mg sublingual. Also Bentyl 20 mg by mouth at the same time. Departure - Departure Time of Disposition: 02:19 Disposition: Home, Self-Care 01 Condition: Fair Clinical Impression: Recurrent epigastric abdominal pain, Biliary colic symptom - Discharge Information *PRESCRIPTION DRUG MONITORING PROGRAM REVIEWED*: No *COPY OF PRESCRIPTION DRUG MONITORING REPORT IN PATIENT JUAN: No Prescriptions: Dicyclomine [Bentyl] 20 mg PO Q6H PRN #5 tablet PRN Reason: Abdominal cramps/diarrhea Ondansetron [Zofran] 4 mg BUCCAL Q6H PRN #5 tab PRN Reason: nausea or vomiting oxyCODONE HCl/Acetaminophen [Percocet 5-325 mg Tablet] 2 each PO Q4H PRN #12 tablet PRN Reason: pain relief. Instructions: Biliary Colic, Adult Referrals: Chyna Corona MD [Primary Care Provider] - Forms: ED Department Discharge Additional Instructions: Evaluation the emergency room tonight in regards to recurrent severe epigastric right upper quadrant abdominal pain characteristic of biliary colic or gallbladder attack. Ascending investigations done in [place] suggested no stones in the gallbladder and a normal HIDA scan. Opinion however that you suffered any acute gallbladder attack tonight likely due to passage of sludge. All the investigations were completely negative. No signs of pancreatitis or liver inflammation. No signs of active infection. CT of the abdomen was completed and again shows gallbladder well distended with no signs of active infection or pericholecystic fluid to suggest active infection of the gallbladder at this time. The pancreas also appeared to be normal. You're treated injured with intravenous pain medications Dilaudid 1 mg and Reglan 10 mg IV for pain and nausea relief. It is my opinion that you should follow-up with Dr. Lerma to have an upper GI endoscopy performed A look at the fourth part of your duodenum and make sure that the diabetic to detailed diverticulum is not part of this pain syndrome. Otherwise it is my opinion that you're suffering recurrent gallbladder attacks and likely major gallbladder removed. I have written a prescription for medication Percocet 5/3/25 milligrams tablets for pain relief, Zofran 4 mg under the tongue for nausea relief and Bentyl 20 mg by mouth for relief of spasm. I would suggest taking Zofran 4 mg under the tongue 2 tablets of Percocet and one tablet of Bentyl 20 mg by mouth at the onset of next similar type attack. This perhaps can abort the attack at home versus having to come to the ED. copies of the history and physical to Dr. Calvo at [facility] and Dr Corona. - My Orders Last 24 Hours: My Active Orders 01/06/18 23:15 Sodium Chloride 0.9% [Normal Saline] 1,000 ml IV ASDIRECTED 01/06/18 23:16 Abdomen 1V Flat [CR] Stat 01/07/18 00:04 Abdomen Pelvis w Cont [CT] Stat - Assessment/Plan Last 24 Hours: My Active Orders 01/06/18 23:15 Sodium Chloride 0.9% [Normal Saline] 1,000 ml IV ASDIRECTED 01/06/18 23:16 Abdomen 1V Flat [CR] Stat 01/07/18 00:04 Abdomen Pelvis w Cont [CT] Stat
[2018-01-06] MEDS ORDERED: HYDROmorphone 1 MG/ML Syringe IVPUSH ONE (23:14)
[2018-01-06] MEDS ORDERED: Metoclopramide 10 MG/2 ML SDV IVPUSH ONE (23:15)
[2018-01-06] MEDS ORDERED: Sodium Chloride 0.9% 1,000 ML IV SCH (23:15)
[2018-01-07] MEDS ORDERED: Iopamidol 612 MG/ML 150 ML Bottle IVPUSH ONE (01:34)
--- NOTE | 2018-01-09 19:39 | CT ---
CT abdomen and pelvis Technique: Multiple axial sections were obtained from below the dome of the diaphragm inferiorly through the pubic symphysis. Intravenous and oral contrast has been given. Delayed images were obtained to the bladder. Comparison: Prior CT abdomen and pelvis exam of 12/07/17. Findings: Liver shows no focal parenchymal abnormality. Visualized lung bases are clear. Adrenal glands show no nodule. Kidneys show symmetric contrast enhancement without hydronephrosis or mass. Pancreas is normal. Duodenal diverticulum is seen which contains contrast. This duodenal diverticulum measures approximately 5.0 cm in size. Kidneys show symmetric contrast enhancement which shows a small low density lesion within the lower right kidney measuring 9 mm. Kidneys are otherwise unremarkable. Aorta shows mild atherosclerotic change without aneurysm. No retroperitoneal adenopathy or mesenteric abnormalities are seen. Fat-containing umbilical hernia is noted. Surgical material is seen within the right lower abdominal wall. No pelvic mass or adenopathy is seen. No free fluid is seen. Minimal colonic diverticuli are seen without inflammatory change. 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 Delayed images show contrast within the distal ureters and within the bladder. Bone window settings show diffuse degenerative change throughout the spine. Impression: 1. 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 This is seen in retrospect on prior CT exam and is unchanged. 2. Other incidental findings as noted above. Nothing acute is appreciated. Diagnostic code #3 I agree with preliminary report issued by [employer] ([facility] report finalized on 01/07/18, 3:51 AM Central Time)
--- NOTE | 2018-01-09 19:39 | CR ---
Abdomen: Supine view of the abdomen was obtained. Comparison: No prior abdominal x-ray. Degenerative change noted within the spine. Surgical material is seen overlying the right iliac wing. Bowel gas pattern is normal. No abnormal calcifications or soft tissue abnormality is seen. 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 Impression: 1. Nothing acute is seen on supine abdominal x-ray. Diagnostic code #2
== END 2018-01-07 02:38 | disposition home or self-care (01) ==
LOC: JD.ED 22:36
DX: R10.13 Epigastric pain (principal); R10.11 Right upper quadrant pain; Z79.82 Long term (current) use of aspirin; Z79.899 Other long term (current) drug therapy; I10 Essential (primary) hypertension
CPT/HCPCS: 36415; 74018; 74177; 80053; 82977; 83690; 83735; 84484; 85007; 85027; 86140; 96361; 96374; 96375; 99285; J1170; J2765; J7040; Q9967

== ENCOUNTER 2018-01-08 16:41 | Inpatient (IN) | payer OTHER, MEDICARE ==
[2018-01-08] MEDS ORDERED: Sodium Chloride 0.9% 10 ML Syringe FLUSH PRN (17:06)
[2018-01-08] MEDS ORDERED: Ondansetron 4 MG/2 ML SDV IVPUSH ONE (17:16)
[2018-01-08] MEDS ORDERED: Acetaminophen 325 MG Tab PO ONE ×2 (17:16→23:03)
[2018-01-08] MEDS ORDERED: Sodium Chloride 0.9% 1,000 ML IV ONE ×3 (17:53→21:25)
[2018-01-08] MEDS ORDERED: Ketorolac 30 MG/ML SDV IVPUSH ONE (17:54)
[2018-01-08] MEDS ORDERED: metroNIDAZOLE/Normal Saline 500 MG in Premix Bag 1 BAG IV ONE (19:24)
[2018-01-08] MEDS ORDERED: Levofloxacin/Dextrose 5%-Water 750 MG in Premix Bag 1 BAG IV ONE (19:24)
[2018-01-08] MEDS ORDERED: LORazepam 2 MG/ML SDV IVPUSH ONE ×2 (20:19→22:05)
[2018-01-08] MEDS ORDERED: HYDROmorphone 0.5 MG/0.5 ML SYRINGE IVPUSH ONE (20:19)
[2018-01-08] MEDS ORDERED: Morphine 2 MG/ML Syringe IVPUSH ONE (21:00)
--- NOTE | 2018-01-08 22:14 | EDM.PDOC ---
ED HPI GENERAL MEDICAL PROBLEM - General Chief Complaint: Fever Stated Complaint: CHILLS/FEVER Time Seen by Provider: 01/08/18 16:55 Source of Information: Reports: Patient, Old Records (recent ED records) History Limitations: Reports: No Limitations - History of Present Illness INITIAL COMMENTS - FREE TEXT/NARRATIVE: 67-year-old male presents for evaluation and treatment of fevers and chills. Patient reports his symptoms started around noon. He reports he did not have much of an appetite at noon. had sudden onset of fevers, chills and rigors. He reports associated symptoms of body aches, headaches, nausea and a mild nonproductive cough. No sore throat, ear pain, abdominal pain, chest pain, shortness of breath, lightheadedness, syncope, vomiting or diarrhea. He did take some Aleve at home, last dose around 1400, no relief. Review of patient's records show he was seen in the ER on November, for abdominal pain. He is found to have stones in the neck of his gallbladder. He was sent to [place] where he was medically managed, did not have his gallbladder out. He states that he did well for about 2 weeks, 2 weeks later he was in the in [place] and again explained pain to the right upper quadrant. He was seen at the hospital in [place]. Had an ultrasound and HIDA scan which were normal. He spent the night at the hospital and was discharge. He then presented to the ED last night for abdominal pain and got a complete workup done including labs and imaging. Diagnosed with biliary colic. Went home with pain medication, Zofran and Bentyl. He states he has been pain-free since leaving the ED last night. He does not have any abdominal pain today. 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 Generalized Pain Score (Numeric/FACES): 0 - Related Data Allergies Allergy/AdvReac Type Severity Reaction Status Date / Time No Known Allergies Allergy Verified 01/08/18 16:50 Home Meds: Home Meds Metoprolol Tartrate [Lopressor] 25 mg PO Q12HR 02/23/16 [History] Aspirin [Halfprin] 81 mg PO DAILY 10/31/16 [History] Omeprazole Magnesium [Prilosec Otc] 20 mg PO DAILY 01/06/18 [History] Dicyclomine [Bentyl] 20 mg PO Q6H PRN #5 tablet 01/07/18 [Rx] Ondansetron [Zofran] 4 mg BUCCAL Q6H PRN #5 tab 01/07/18 [Rx] oxyCODONE HCl/Acetaminophen [Percocet 5-325 mg Tablet] 2 each PO Q4H PRN #12 tablet 01/07/18 [Rx] Past Medical History HEENT History: Reports: Impaired Vision Other HEENT History: wears eyeglasses Cardiovascular History: Reports: Heart Murmur, Heart Valve Replacement, High Cholesterol, Hypertension, Other (See Below) Other Cardiovascular History: mitral valve replaced Respiratory History: Reports: Pneumonia, Recurrent Other Respiratory History: in childhood Gastrointestinal History: Reports: GERD Other Gastrointestinal History: ulcertive colitis Neurological History: Reports: Migraines Endocrine/Metabolic History: Reports: Other (See Below) Other Endocrine/Metabolic History: states has hypoglycemia - Infectious Disease History Infectious Disease History: Reports: Chicken Pox, Measles, Mumps, Rheumatic Fever - Past Surgical History Cardiovascular Surgical History: Reports: Carotid Endarterectomy GI Surgical History: Reports: Colonoscopy, Hernia, Inguinal Social & Family History - Tobacco Use Smoking Status *Q: Never Smoker Second Hand Smoke Exposure: No - Caffeine Use Caffeine Use: Reports: Coffee - Recreational Drug Use Recreational Drug Use: No - Living Situation & Occupation Living situation: Reports: Occupation: Employed ED ROS GENERAL - Review of Systems Review Of Systems: See Below Constitutional: Reports: Fever, Chills, Other (rigors, bodyaches) HEENT: Denies: Ear Pain, Throat Pain Respiratory: Reports: Cough. Denies: Shortness of Breath, Sputum Cardiovascular: Denies: Chest Pain GI/Abdominal: Reports: Nausea. Denies: Abdominal Pain, Diarrhea, Vomiting Neurological: Reports: Headache ED EXAM, GENERAL - Physical Exam Exam: See Below Exam Limited By: No Limitations General Appearance: Alert, WD/WN, No Apparent Distress Eye Exam: Bilateral Eye: Normal Inspection Ears: Normal External Exam, Normal Canal, Hearing Grossly Normal, Normal TMs Nose: Normal Inspection Throat/Mouth: Normal Inspection, Normal Lips, Normal Voice, No Airway Compromise Neck: Normal Inspection Respiratory/Chest: No Respiratory Distress, Lungs Clear, Normal Breath Sounds Cardiovascular: Normal Peripheral Pulses, Regular Rate, Rhythm, No Murmur GI/Abdominal: Normal Bowel Sounds, Soft, Non-Tender, Distended. No: Rebound Neurological: Alert, Oriented, Normal Cognition Psychiatric: Normal Affect, Normal Mood Skin Exam: Warm, Dry, Normal Color Course - Vital Signs Last Recorded V/S: Last Vital Signs Temp 98.8 F 01/08/18 19:11 Pulse 99 01/08/18 19:11 Resp 20 01/08/18 19:11 BP 77/56 L 01/08/18 19:11 Pulse Ox 95 01/08/18 19:11 - Orders/Labs/Meds Orders: Active Orders 24 hr Category Date Time Status Patient Status [ADT] Routine ADT 01/08/18 23:56 Ordered Peripheral IV Care [RC] . DIRECTED Care 01/08/18 17:06 Active Chest 2V [CR] Stat Exams 01/08/18 17:16 Taken Chest w Cont [CT] Stat Exams 01/08/18 20:48 Taken CULTURE BLOOD [BC] Stat Lab 01/08/18 17:19 Received CULTURE BLOOD [BC] Stat Lab 01/08/18 17:27 Received RESPIRATORY PANEL Stat Lab 01/08/18 18:00 Received UA W/MICROSCOPIC [URIN] Stat Lab 01/08/18 17:55 Ordered [facility] [REF] Stat Lab 01/08/18 17:19 Received DOPamine/Dextrose 5%-Water [DOPamine in D5W 400 MG/250 Med 01/08/18 23:30 Active ML] 400 mg in 250 ml IV TITRATE Sodium Chloride 0.9% [Normal Saline] 1,000 ml Med 01/08/18 23:30 Active IV ASDIRECTED Sodium Chloride 0.9% [Saline Flush] Med 01/08/18 17:06 Active 10 ml FLUSH ASDIRECTED PRN Blood Culture x2 Reflex Set [OM.PC] Stat Oth 01/08/18 17:06 Ordered Peripheral IV Insertion Adult [OM.PC] Routine Oth 01/08/18 17:06 Ordered Medication Orders Dopamine HCl/Dextrose (Dopamine In D5w 400 Mg/250 Ml) 400 mg in 250 mls @ 10.614 mls/hr IV TITRATE BARBER; Protocol Sodium Chloride (Normal Saline) 1,000 mls @ 150 mls/hr IV ASDIRECTED BARBER Last Admin: 01/08/18 23:25 Dose: 150 mls/hr Sodium Chloride (Saline Flush) 10 ml FLUSH ASDIRECTED PRN PRN Reason: Keep Vein Open Last Admin: 01/08/18 17:28 Dose: 10 ml Labs: Laboratory Tests 01/08/18 01/08/18 01/08/18 Range/Units 17:19 17: 17:19 WBC 8.10 (4.23-9.07) K/mm3 RBC 4.68 (4.63-6.08) M/mm3 Hgb 14.3 (13.7-17.5) gm/L Hct 41.7 (40.1-51.0) % MCV 89.1 (79.0-92.2) fl MCH 30.6 (25.7-32.2) pg MCHC 34.3 (32.2-35.5) g/dl RDW Std Deviation 45.8 H (35.1-43.9) fL Plt Count 201 (163-337) K/mm3 MPV 9.5 (9.4-12.3) fl Neutrophils % (Manual) 75 H (40-60) % Band Neutrophils % 9 (0-10) % Lymphocytes % (Manual) 11 L (20-40) % Atypical Lymphs % 0 % Monocytes % (Manual) 2 (2-10) % Eosinophils % (Manual) 3 (0.8-7.0) % Basophils % (Manual) 0 L (0.2-1.2) Platelet Estimate Adequate RBC Morph Comment Normal Sodium 137 (136-145) mEq/L Potassium 4.0 (3.5-5.1) mEq/L Chloride 103 (98-107) mEq/L Carbon Dioxide 23 (21-32) mEq/L Anion Gap 15.0 (5-15) BUN 13 (7-18) mg/dL Creatinine 1.0 (0.7-1.3) mg/dL Est Cr Clr Drug Dosing 71.25 mL/min Estimated GFR (MDRD) > 60 (>60) mL/min BUN/Creatinine Ratio 13.0 L (14-18) Glucose 113 (80-115) mg/dL Lactic Acid 1.7 (0.4-2.0) mmol/L Calcium 9.0 (8.5-10.1) mg/dL Total Bilirubin 0.7 (0.2-1.0) mg/dL GGT (15-85) U/L AST 34 (15-37) U/L ALT 87 H (16-63) U/L Alkaline Phosphatase 80 (46-116) U/L C-Reactive Protein 3.1 H* (<1.0) mg/dL Total Protein 7.1 (6.4-8.2) g/dl Albumin 3.6 (3.4-5.0) g/dl Globulin 3.5 gm/dL Albumin/Globulin Ratio 1.0 (1-2) Lipase 179 (73-393) U/L Urine Color (Yellow) Urine Appearance (Clear) Urine pH (5.0-8.0) Ur Specific [place] (1.005-1.030) Urine Protein (Negative) Urine Glucose (UA) (Negative) Urine Ketones (Negative) Urine Occult Blood (Negative) Urine Nitrite (Negative) Urine Bilirubin (Negative) Urine Urobilinogen (0.2-1.0) Ur Leukocyte Esterase (Negative) Urine RBC (0-5) /hpf Urine WBC (0-5) /hpf Ur Epithelial Cells (0-5) /hpf Urine Bacteria (FEW) /hpf Urine Mucus (FEW) /hpf 01/08/18 01/08/18 Range/Units 17:19 17:55 WBC (4.23-9.07) K/mm3 RBC (4.63-6.08) M/mm3 Hgb (13.7-17.5) gm/L Hct (40.1-51.0) % MCV (79.0-92.2) fl MCH (25.7-32.2) pg MCHC (32.2-35.5) g/dl RDW Std Deviation (35.1-43.9) fL Plt Count (163-337) K/mm3 MPV (9.4-12.3) fl Neutrophils % (Manual) (40-60) % Band Neutrophils % (0-10) % Lymphocytes % (Manual) (20-40) % Atypical Lymphs % % Monocytes % (Manual) (2-10) % Eosinophils % (Manual) (0.8-7.0) % Basophils % (Manual) (0.2-1.2) Platelet Estimate RBC Morph Comment Sodium (136-145) mEq/L Potassium (3.5-5.1) mEq/L Chloride (98-107) mEq/L Carbon Dioxide (21-32) mEq/L Anion Gap (5-15) BUN (7-18) mg/dL Creatinine (0.7-1.3) mg/dL Est Cr Clr Drug Dosing mL/min Estimated GFR (MDRD) (>60) mL/min BUN/Creatinine Ratio (14-18) Glucose (80-115) mg/dL Lactic Acid (0.4-2.0) mmol/L Calcium (8.5-10.1) mg/dL Total Bilirubin (0.2-1.0) mg/dL GGT 168 H (15-85) U/L AST (15-37) U/L ALT (16-63) U/L Alkaline Phosphatase (46-116) U/L C-Reactive Protein (<1.0) mg/dL Total Protein (6.4-8.2) g/dl Albumin (3.4-5.0) g/dl Globulin gm/dL Albumin/Globulin Ratio (1-2) Lipase (73-393) U/L Urine Color Yellow (Yellow) Urine Appearance Clear (Clear) Urine pH 6.5 (5.0-8.0) Ur Specific [place] 1.025 (1.005-1.030) Urine Protein Negative (Negative) Urine Glucose (UA) Negative (Negative) Urine Ketones Negative (Negative) Urine Occult Blood Negative (Negative) Urine Nitrite Negative (Negative) Urine Bilirubin Negative (Negative) Urine Urobilinogen 0.2 (0.2-1.0) Ur Leukocyte Esterase Negative (Negative) Urine RBC Not seen (0-5) /hpf Urine WBC 0-5 (0-5) /hpf Ur Epithelial Cells Not seen (0-5) /hpf Urine Bacteria Rare (FEW) /hpf Urine Mucus Few (FEW) /hpf Meds: Medications Generic Name Dose Route Start Last Admin Trade Name Freq PRN Reason Stop Dose Admin Dopamine HCl/Dextrose 400 mg in 250 mls @ 10.614 mls/hr 01/08/18 23:30 Dopamine In D5w 400 Mg/250 Ml IV TITRATE BARBER Protocol 3 MCG/KG/MIN Sodium Chloride 1,000 mls @ 150 mls/hr 01/08/18 23:30 01/08/18 23:25 Normal Saline IV 150 mls/hr ASDIRECTED BARBER Administration Sodium Chloride 10 ml 01/08/18 17:06 01/08/18 17:28 Saline Flush FLUSH 10 ml ASDIRECTED PRN Administration Keep Vein Open Discontinued Medications Generic Name Dose Route Start Last Admin Trade Name Heraclio PRN Reason Stop Dose Admin Acetaminophen 975 mg 01/08/18 17:16 01/08/18 17:28 Tylenol PO 01/08/18 17:17 975 mg NOW ONE Administration Acetaminophen 975 mg 01/08/18 23:03 Tylenol PO 01/08/18 23:04 NOW ONE Hydromorphone HCl 0.5 mg 01/08/18 20:19 01/08/18 20:31 Dilaudid IVPUSH 01/08/18 20:20 Not Given ONETIME ONE Sodium Chloride 1,000 mls @ 999 mls/hr 01/08/18 17:53 01/08/18 18:11 Normal Saline IV 01/08/18 18:53 999 mls/hr ONETIME ONE Administration Sodium Chloride 1,000 mls @ 999 mls/hr 01/08/18 19:14 01/08/18 19:18 Normal Saline IV 01/08/18 20:14 999 mls/hr ONETIME ONE Administration Levofloxacin/Dextrose 750 mg/ 150 mls @ 100 mls/hr 01/08/18 19:24 01/08/18 20 :38 Premix IV 01/08/18 20:53 100 mls/hr ONETIME ONE Administration Metronidazole 500 mg/ Premix 100 mls @ 100 mls/hr 01/08/18 19:24 01/08/18 19: 31 IV 01/08/18 20:23 100 mls/hr ONETIME ONE Administration Sodium Chloride 1,000 mls @ 999 mls/hr 01/08/18 21:25 01/08/18 22:18 Normal Saline IV 01/08/18 22:25 999 mls/hr ONETIME ONE Administration Dopamine HCl/Dextrose Confirm 01/08/18 23:21 Dopamine In D5w 400 Mg/250 Ml Administered 01/08/18 23:22 Dose 400 mg in 250 mls @ as directed .ROUTE .STK-MED ONE Iopamidol 100 ml 01/08/18 22:38 01/08/18 22:39 Isovue-300 (61%) IVPUSH 01/08/18 22:39 80 ml ONETIME ONE Administration Ketorolac Tromethamine 30 mg 01/08/18 17:54 01/08/18 18:08 Toradol IVPUSH 01/08/18 17:55 30 mg ONETIME ONE Administration Lorazepam 0.5 mg 01/08/18 20:19 01/08/18 20:36 Ativan IVPUSH 01/08/18 20:20 0.5 mg ONETIME ONE Administration Lorazepam 0.5 mg 01/08/18 22:05 01/08/18 22:20 Ativan IVPUSH 01/08/18 22:06 0.5 mg ONETIME ONE Administration Metoclopramide HCl 5 mg 01/08/18 23:19 Reglan IVPUSH 01/08/18 23:20 ONETIME ONE Morphine Sulfate 2 mg 01/08/18 21:00 Morphine IVPUSH 01/08/18 21:01 ONETIME ONE Ondansetron HCl 4 mg 01/08/18 17:16 01/08/18 17:28 Zofran IVPUSH 01/08/18 17:17 4 mg ONETIME ONE Administration Zolpidem Tartrate 10 mg 01/08/18 23:39 Ambien PO 01/08/18 23:40 NOW STA - Radiology Interpretation Free Text/Narrative:: chest xray 2 view shows no acute intrathoracic process. Chest CT with contrast impression per vrad: subsegmetnal atelectasis overlying elevated right hemidiaphragm. No pneumonia. - Re-Assessments/Exams Free Text/Narrative Re-Assessment/Exam: 01/08/18 20:09 Labs and imaging discussed with the patient. Case discussed with Dr. Hunter who had did see him last night. Concerned this could be ascending cholangitis. Discussed case with Dr. Parker, surgeon automation controls engineer. She does not feel that this is ascending cholangitis. She has come to the ER and reviewed images and the case. I contacted Dr. Durbin, hospitalist who also presented to the ER to see the patient as well. Recommend getting a CT scan of the chest to ensure were not missing a pneumonia. 01/08/18 23:50 Patient's blood pressures have been rather erratic. His systolic has been down into the low 70s and upper 80s. Blood pressure will go up into the 100 systolic. He has received 3 L of fluid. He is not complaining of any symptoms, no lightheadedness or dizziness. He is not tachycardic since his fever broke. Informed Dr. Durbin of the CT results and his blood pressures. We'll start a dopamine drip at 3 mcg/kg/min with a titration to obtain a map of 65. We'll also run fluids at 150 mL per hour for the next 6 hours. He will go to the ICU. Informed patient he will go to ICU. Would like something for sleep. Ambien 10mg ordered. Did not feel fatigued with the ativan. Departure - Departure Time of Disposition: 00:15 Disposition: Admitted As Inpatient 68 Condition: Serious Clinical Impression: Hypotension, Sepsis - Discharge Information *PRESCRIPTION DRUG MONITORING PROGRAM REVIEWED*: No *COPY OF PRESCRIPTION DRUG MONITORING REPORT IN PATIENT JUAN: No Referrals: Chyna Corona MD [Primary Care Provider] - Forms: ED Department Discharge Additional Instructions: Patient admitted to the ICU under Dr. Durbin. Patient has received 3L NS, 500mg flagyl and 750mg levaquin while in the ED. Started on a dopamine drip at 3mcg/kg /hr with titration to a MAP of 65. Fluids at 150ml/hr x 6 hours. - My Orders Last 24 Hours: My Active Orders 01/08/18 17:06 Peripheral IV Care [RC] . DIRECTED Sodium Chloride 0.9% [Saline Flush] 10 ml FLUSH ASDIRECTED PRN Blood Culture x2 Reflex Set [OM.PC] Stat Peripheral IV Insertion Adult [OM.PC] Routine 01/08/18 17:16 Chest 2V [CR] Stat 01/08/18 17:19 CULTURE BLOOD [BC] Stat [facility] [REF] Stat 01/08/18 17:27 CULTURE BLOOD [BC] Stat 01/08/18 17:55 UA W/MICROSCOPIC [URIN] Stat 01/08/18 18:00 RESPIRATORY PANEL Stat 01/08/18 20:48 Chest w Cont [CT] Stat 01/08/18 23:30 DOPamine/Dextrose 5%-Water [DOPamine in D5W 400 MG/250 ML] 400 mg in 250 ml IV TITRATE Sodium Chloride 0.9% [Normal Saline] 1,000 ml IV ASDIRECTED 01/08/18 23:56 Patient Status [ADT] Routine - Assessment/Plan Last 24 Hours: My Active Orders 01/08/18 17:06 Peripheral IV Care [RC] . DIRECTED Sodium Chloride 0.9% [Saline Flush] 10 ml FLUSH ASDIRECTED PRN Blood Culture x2 Reflex Set [OM.PC] Stat Peripheral IV Insertion Adult [OM.PC] Routine 01/08/18 17:16 Chest 2V [CR] Stat 01/08/18 17:19 CULTURE BLOOD [BC] Stat [facility] [REF] Stat 01/08/18 17:27 CULTURE BLOOD [BC] Stat 01/08/18 17:55 UA W/MICROSCOPIC [URIN] Stat 01/08/18 18:00 RESPIRATORY PANEL Stat 01/08/18 20:48 Chest w Cont [CT] Stat 01/08/18 23:30 DOPamine/Dextrose 5%-Water [DOPamine in D5W 400 MG/250 ML] 400 mg in 250 ml IV TITRATE Sodium Chloride 0.9% [Normal Saline] 1,000 ml IV ASDIRECTED 01/08/18 23:56 Patient Status [ADT] Routine
[2018-01-08] MEDS ORDERED: Iopamidol 612 MG/ML 100 ML Bottle IVPUSH ONE (22:38)
[2018-01-08] MEDS ORDERED: Metoclopramide 10 MG/2 ML SDV IVPUSH ONE (23:19)
[2018-01-08] MEDS ORDERED: DOPamine/Dextrose 5%-Water 400 MG/250 ML BAG ONE (23:21)
[2018-01-08] MEDS: Sodium Chloride 0.9% 1,000 ML IV SCH (23:25)
[2018-01-08] MEDS ORDERED: DOPamine/Dextrose 5%-Water 400 MG/250 ML BAG IV SCH (23:30)
[2018-01-08] MEDS ORDERED: Zolpidem 10 MG Tab PO STA (23:39)
[2018-01-09] MEDS: Sodium Chloride 0.9% 1,000 ML IV SCH ×4 (00:12→13:09)
[2018-01-09] MEDS ORDERED: Ondansetron 4 MG/2 ML SDV IVPUSH PRN (00:13)
[2018-01-09] MEDS ORDERED: Acetaminophen 325 MG Tab PO PRN (00:17)
[2018-01-09] MEDS ORDERED: Benzocaine/Cetylpyridinium/Menthol Lozenge MUCMEM PRN (00:18)
[2018-01-09] MEDS ORDERED: Temazepam 15 MG Cap PO PRN (00:20)
[2018-01-09] MEDS: metroNIDAZOLE/Normal Saline 500 MG in Premix Bag 1 BAG IV SCH ×2 (03:11→11:44)
[2018-01-09] MEDS ORDERED: Magnesium Sulfate/Water 2 GM in Premix Bag 1 BAG IV ONE (08:30)
[2018-01-09] MEDS ORDERED: HYDROmorphone 0.5 MG/0.5 ML Syringe IVPUSH ONE (08:35)
[2018-01-09] MEDS ORDERED: Enoxaparin 40 MG/0.4 ML Syringe SUBCUT SCH (09:00)
[2018-01-09] MEDS ORDERED: Ketorolac 60 MG/2 ML SDV IM ONE (09:11)
--- NOTE | 2018-01-09 13:09 | PCM.HP ---
H&P History of Present Illness - General Date of Service: 01/08/18 Admit Problem/Dx: Admission Diagnosis/Problem Admission Diagnosis/Problem Hypotension Source of Information: Patient, Provider History Limitations: Reports: No Limitations - History of Present Illness Initial Comments - Free Text/Narative: 67 year old male that has had bouts of abdominal pain, has had gallbladder assessment over the last month. On each occasion, he has been treated medically. he has been seen mid November and early December 2017. Each time he has been at [facility]. he presented to the ED in [place] with a complaint of fever/chills and loss of appetite. Additionally he has had body aches, headache as well as a nonproductive cough. A CXR, [address] of the abdomen and pelvis were performed. It was noted that he had an elevated right sided diaphragm, this was noted to be chronic. On CT of the abdomen and later the CT of the chest, it appears that the liver has significantly reduced the right lung volume. Moreover it appears that the gallbladder and subsequent abdominal pain has been exacerbated by the patient's anatomy. For now, the patient will be treated as sepsis, blood cultures are pending. He may or may not need pressor support. Empirically he has received Levoquin and Flagyl. The infectious work up thus far is otherwise unremarkable. ED visit on 01/08/18 VS 98.8F, HR 99, Resp 22, BP 77/56, Pulse ox 95%; he has received 3 liters of 0.9NS, the rate 150 cc/hr. His blood pressure resonded appropritaely. It was not felt that this is ascending cholangitis. After 2350 on 01/08/18, the patient required dopamine, fluid resuscitation was continued. The target was a MAP of 65, the fluids were maintained. The DA was titrated off with an appropriate BP response over night. ED summary of previous visits and [place] evaluations, : Review of patient's records show he was seen in the ER on November, for abdominal pain. He is found to have stones in the neck of his gallbladder. He was sent to [place] where he was medically managed, did not have his gallbladder out. He states that he did well for about 2 weeks, 2 weeks later he was in the in [place] and again explained pain to the right upper quadrant. He was seen at the hospital in [place]. Had an ultrasound and HIDA scan which were normal. He spent the night at the hospital and was discharge. He then presented to the ED last night for abdominal pain and got a complete workup done including labs and imaging. Diagnosed with biliary colic. Went home with pain medication, Zofran and Bentyl. He states he has been pain-free since leaving the ED last night. He does not have any abdominal pain today, 01/08/18 before admission. Onset of Symptoms: Reports: Sudden Symptom Onset Date: 01/08/18 Duration of Symptoms: Reports: Hour(s):, Getting Worse Location: Reports: Abdomen Quality: Reports: Same as Previous Episode Improves with: Reports: Medication Worsens with: Reports: None Associated Symptoms: Reports: Loss of Appetite, Malaise, Nausea/Vomiting, Weakness Generalized Pain Score (Numeric/FACES): 8 - Related Data Allergies/Adverse Reactions: Allergies Allergy/AdvReac Type Severity Reaction Status Date / Time No Known Allergies Allergy Verified 01/08/18 16:50 Home Medications: Home Meds Metoprolol Tartrate [Lopressor] 25 mg PO Q12HR 02/23/16 [History] Aspirin [Halfprin] 81 mg PO DAILY 10/31/16 [History] Omeprazole Magnesium [Prilosec Otc] 20 mg PO DAILY 01/06/18 [History] Dicyclomine [Bentyl] 20 mg PO Q6H PRN #5 tablet 01/07/18 [Rx] Ondansetron [Zofran] 4 mg BUCCAL Q6H PRN #5 tab 01/07/18 [Rx] oxyCODONE HCl/Acetaminophen [Percocet 5-325 mg Tablet] 2 each PO Q4H PRN #12 tablet 01/07/18 [Rx] Past Medical History HEENT History: Reports: Impaired Vision Other HEENT History: wears eyeglasses Cardiovascular History: Reports: Heart Murmur, Heart Valve Replacement, High Cholesterol, Hypertension, Other (See Below) Other Cardiovascular History: mitral valve replaced Respiratory History: Reports: Pneumonia, Recurrent Other Respiratory History: in childhood Gastrointestinal History: Reports: GERD Other Gastrointestinal History: ulcertive colitis Neurological History: Reports: Migraines Endocrine/Metabolic History: Reports: Other (See Below) Other Endocrine/Metabolic History: states has hypoglycemia - Infectious Disease History Infectious Disease History: Reports: Chicken Pox, Measles, Mumps, Rheumatic Fever - Past Surgical History Cardiovascular Surgical History: Reports: Carotid Endarterectomy GI Surgical History: Reports: Colonoscopy, Hernia, Inguinal Social & Family History - Family History Family Medical History: Noncontributory - Tobacco Use Smoking Status *Q: Never Smoker Second Hand Smoke Exposure: No - Caffeine Use Caffeine Use: Reports: Coffee - Recreational Drug Use Recreational Drug Use: No - Living Situation & Occupation Living situation: Reports: Occupation: Employed H&P Review of Systems - Review of Systems: Review Of Systems: See Below General: Reports: Fever, Chills, Malaise, Weakness HEENT: Reports: No Symptoms Pulmonary: Reports: No Symptoms Cardiovascular: Reports: No Symptoms Gastrointestinal: Reports: Abdominal Pain, Decreased Appetite, Nausea, Vomiting Genitourinary: Reports: No Symptoms Musculoskeletal: Reports: No Symptoms Skin: Reports: No Symptoms Psychiatric: Reports: No Symptoms Neurological: Reports: No Symptoms Hematologic/Lymphatic: Reports: No Symptoms Exam - Exam Exam: See Below - Vital Signs Vital Signs: Last Vital Signs Temp 36.8 C 01/09/18 11:52 Pulse 87 01/09/18 11:52 Resp 20 01/09/18 13:00 BP 135/86 01/09/18 13:00 Pulse Ox 100 01/09/18 13:00 Weight: 98.883 kg - Exam Quality Assessment: Supplemental Oxygen, DVT Prophylaxis General: Alert, Oriented, Cooperative HEENT: Conjunctiva Clear, EOMI, Pupils Equal, Pupils Reactive, PERRLA Neck: Trachea Midline Lungs: Clear to Auscultation, Normal Respiratory Effort Cardiovascular: Regular Rate, Tachycardia GI/Abdominal Exam: Normal Bowel Sounds, Soft, Non-Tender, No Organomegaly, No Distention (Male) Exam: Deferred Rectal (Males) Exam: Deferred Back Exam: Normal Inspection Extremities: Normal Inspection, Non-Tender, Slow Capillary Refill Skin: Warm, Dry Neurological: Cranial Nerves Intact Neuro Extensive - Mental Status: Alert, Oriented x3, Normal Mood/Affect, Normal Cognition, Memory Intact Psychiatric: Alert, Normal Affect, Normal Mood - Patient Data Lab Results Last 24 hrs: Laboratory Results - last 24 hr 01/08/18 01/08/18 01/08/18 Range/Units 17:19 17:19 17:19 WBC 8.10 (4.23-9.07) K/mm3 RBC 4.68 (4.63-6.08) M/mm3 Hgb 14.3 (13.7-17.5) gm/L Hct 41.7 (40.1-51.0) % MCV 89.1 (79.0-92.2) fl MCH 30.6 (25.7-32.2) pg MCHC 34.3 (32.2-35.5) g/dl RDW Std Deviation 45.8 H (35.1-43.9) fL Plt Count 201 (163-337) K/mm3 MPV 9.5 (9.4-12.3) fl Neut % (Auto) (34.0-67.9) % Lymph % (Auto) (21.8-53.1) % Trigg % (Auto) (5.3-12.2) % Eos % (Auto) (0.8-7.0) Baso % (Auto) (0.1-1.2) % Neut # (Auto) (1.78-5.38) K/mm3 Lymph # (Auto) (1.32-3.57) K/mm3 Trigg # (Auto) (0.30-0.82) K/mm3 Eos # (Auto) (0.04-0.54) K/mm3 Baso # (Auto) (0.01-0.08) K/mm3 Neutrophils % (Manual) 75 H (40-60) % Band Neutrophils % 9 (0-10) % Lymphocytes % (Manual) 11 L (20-40) % Atypical Lymphs % 0 % Monocytes % (Manual) 2 (2-10) % Eosinophils % (Manual) 3 (0.8-7.0) % Basophils % (Manual) 0 L (0.2-1.2) Manual Slide Review Platelet Estimate Adequate RBC Morph Comment Normal Sodium 137 (136-145) mEq/L Potassium 4.0 (3.5-5.1) mEq/L Chloride 103 (98-107) mEq/L Carbon Dioxide 23 (21-32) mEq/L Anion Gap 15.0 (5-15) BUN 13 (7-18) mg/dL Creatinine 1.0 (0.7-1.3) mg/dL Est Cr Clr Drug Dosing 71.25 mL/min Estimated GFR (MDRD) > 60 (>60) mL/min BUN/Creatinine Ratio 13.0 L (14-18) Glucose 113 (80-115) mg/dL Lactic Acid 1.7 (0.4-2.0) mmol/L Calcium 9.0 (8.5-10.1) mg/dL Magnesium (1.8-2.4) mg/dl Total Bilirubin 0.7 (0.2-1.0) mg/dL GGT (15-85) U/L AST 34 (15-37) U/L ALT 87 H (16-63) U/L Alkaline Phosphatase 80 (46-116) U/L C-Reactive Protein 3.1 H* (<1.0) mg/dL Total Protein 7.1 (6.4-8.2) g/dl Albumin 3.6 (3.4-5.0) g/dl Globulin 3.5 gm/dL Albumin/Globulin Ratio 1.0 (1-2) Lipase 179 (73-393) U/L Urine Color (Yellow) Urine Appearance (Clear) Urine pH (5.0-8.0) Ur Specific [place] (1.005-1.030) Urine Protein (Negative) Urine Glucose (UA) (Negative) Urine Ketones (Negative) Urine Occult Blood (Negative) Urine Nitrite (Negative) Urine Bilirubin (Negative) Urine Urobilinogen (0.2-1.0) Ur Leukocyte Esterase (Negative) Urine RBC (0-5) /hpf Urine WBC (0-5) /hpf Ur Epithelial Cells (0-5) /hpf Urine Bacteria (FEW) /hpf Urine Mucus (FEW) /hpf Mycoplasma pneumon IgM (NEGATIVE) 01/08/18 01/08/18 01/08/18 Range/Units 17:19 17:19 17:55 WBC (4.23-9.07) K/mm3 RBC (4.63-6.08) M/mm3 Hgb (13.7-17.5) gm/L Hct (40.1-51.0) % MCV (79.0-92.2) fl MCH (25.7-32.2) pg MCHC (32.2-35.5) g/dl RDW Std Deviation (35.1-43.9) fL Plt Count (163-337) K/mm3 MPV (9.4-12.3) fl Neut % (Auto) (34.0-67.9) % Lymph % (Auto) (21.8-53.1) % Trigg % (Auto) (5.3-12.2) % Eos % (Auto) (0.8-7.0) Baso % (Auto) (0.1-1.2) % Neut # (Auto) (1.78-5.38) K/mm3 Lymph # (Auto) (1.32-3.57) K/mm3 Trigg # (Auto) (0.30-0.82) K/mm3 Eos # (Auto) (0.04-0.54) K/mm3 Baso # (Auto) (0.01-0.08) K/mm3 Neutrophils % (Manual) (40-60) % Band Neutrophils % (0-10) % Lymphocytes % (Manual) (20-40) % Atypical Lymphs % % Monocytes % (Manual) (2-10) % Eosinophils % (Manual) (0.8-7.0) % Basophils % (Manual) (0.2-1.2) Manual Slide Review Platelet Estimate RBC Morph Comment Sodium (136-145) mEq/L Potassium (3.5-5.1) mEq/L Chloride (98-107) mEq/L Carbon Dioxide (21-32) mEq/L Anion Gap (5-15) BUN (7-18) mg/dL Creatinine (0.7-1.3) mg/dL Est Cr Clr Drug Dosing mL/min Estimated GFR (MDRD) (>60) mL/min BUN/Creatinine Ratio (14-18) Glucose (80-115) mg/dL Lactic Acid (0.4-2.0) mmol/L Calcium (8.5-10.1) mg/dL Magnesium (1.8-2.4) mg/dl Total Bilirubin (0.2-1.0) mg/dL GGT 168 H (15-85) U/L AST (15-37) U/L ALT (16-63) U/L Alkaline Phosphatase (46-116) U/L C-Reactive Protein (<1.0) mg/dL Total Protein (6.4-8.2) g/dl Albumin (3.4-5.0) g/dl Globulin gm/dL Albumin/Globulin Ratio (1-2) Lipase (73-393) U/L Urine Color Yellow (Yellow) Urine Appearance Clear (Clear) Urine pH 6.5 (5.0-8.0) Ur Specific [place] 1.025 (1.005-1.030) Urine Protein Negative (Negative) Urine Glucose (UA) Negative (Negative) Urine Ketones Negative (Negative) Urine Occult Blood Negative (Negative) Urine Nitrite Negative (Negative) Urine Bilirubin Negative (Negative) Urine Urobilinogen 0.2 (0.2-1.0) Ur Leukocyte Esterase Negative (Negative) Urine RBC Not seen (0-5) /hpf Urine WBC 0-5 (0-5) /hpf Ur Epithelial Cells Not seen (0-5) /hpf Urine Bacteria Rare (FEW) /hpf Urine Mucus Few (FEW) /hpf Mycoplasma pneumon IgM Negative (NEGATIVE) 01/09/18 01/09/18 Range/Units 05:25 05:25 WBC 8.16 (4.23-9.07) K/mm3 RBC 4.33 L (4.63-6.08) M/mm3 Hgb 13.2 L (13.7-17.5) gm/L Hct 39.5 L (40.1-51.0) % MCV 91.2 (79.0-92.2) fl MCH 30.5 (25.7-32.2) pg MCHC 33.4 (32.2-35.5) g/dl RDW Std Deviation 48.2 H (35.1-43.9) fL Plt Count 179 (163-337) K/mm3 MPV 9.5 (9.4-12.3) fl Neut % (Auto) 85.1 H (34.0-67.9) % Lymph % (Auto) 8.1 L (21.8-53.1) % Trigg % (Auto) 4.8 L (5.3-12.2) % Eos % (Auto) 1.1 (0.8-7.0) Baso % (Auto) 0.5 (0.1-1.2) % Neut # (Auto) 6.95 H (1.78-5.38) K/mm3 Lymph # (Auto) 0.66 L (1.32-3.57) K/mm3 Trigg # (Auto) 0.39 (0.30-0.82) K/mm3 Eos # (Auto) 0.09 (0.04-0.54) K/mm3 Baso # (Auto) 0.04 (0.01-0.08) K/mm3 Neutrophils % (Manual) (40-60) % Band Neutrophils % (0-10) % Lymphocytes % (Manual) (20-40) % Atypical Lymphs % % Monocytes % (Manual) (2-10) % Eosinophils % (Manual) (0.8-7.0) % Basophils % (Manual) (0.2-1.2) Manual Slide Review Abnormal smear Platelet Estimate RBC Morph Comment Sodium 142 (136-145) mEq/L Potassium 4.1 (3.5-5.1) mEq/L Chloride 109 H (98-107) mEq/L Carbon Dioxide 22 (21-32) mEq/L Anion Gap 15.1 H (5-15) BUN 13 (7-18) mg/dL Creatinine 1.1 (0.7-1.3) mg/dL Est Cr Clr Drug Dosing 64.77 mL/min Estimated GFR (MDRD) > 60 (>60) mL/min BUN/Creatinine Ratio 11.8 L (14-18) Glucose 122 H (80-115) mg/dL Lactic Acid (0.4-2.0) mmol/L Calcium 8.1 L (8.5-10.1) mg/dL Magnesium 1.7 L (1.8-2.4) mg/dl Total Bilirubin (0.2-1.0) mg/dL GGT (15-85) U/L AST (15-37) U/L ALT (16-63) U/L Alkaline Phosphatase (46-116) U/L C-Reactive Protein (<1.0) mg/dL Total Protein (6.4-8.2) g/dl Albumin (3.4-5.0) g/dl Globulin gm/dL Albumin/Globulin Ratio (1-2) Lipase (73-393) U/L Urine Color (Yellow) Urine Appearance (Clear) Urine pH (5.0-8.0) Ur Specific [place] (1.005-1.030) Urine Protein (Negative) Urine Glucose (UA) (Negative) Urine Ketones (Negative) Urine Occult Blood (Negative) Urine Nitrite (Negative) Urine Bilirubin (Negative) Urine Urobilinogen (0.2-1.0) Ur Leukocyte Esterase (Negative) Urine RBC (0-5) /hpf Urine WBC (0-5) /hpf Ur Epithelial Cells (0-5) /hpf Urine Bacteria (FEW) /hpf Urine Mucus (FEW) /hpf Mycoplasma pneumon IgM (NEGATIVE) Result Diagrams: 01/09/18 05:25 01/09/18 05:25 Kenny Results Last 24 hrs: Microbiology 01/08/18 17:19 Anaerobic Blood Culture - Preliminary Blood - Venous Gram Negative Rods 01/08/18 17:27 Aerobic Blood Culture - Preliminary Blood - Venous - Lab Draw Gram Negative Rods Anaerobic Blood Culture - Preliminary Gram Negative Rods - Problem List (1) Hypotension SNOMED Code(s): 15933214 ICD Code: I95.9 - HYPOTENSION, UNSPECIFIED Status: Acute Current Visit: Yes (2) Sepsis SNOMED Code(s): 33911752 ICD Code: A41.9 - SEPSIS, UNSPECIFIED ORGANISM Status: Acute Current Visit: Yes (3) Dizziness, nonspecific SNOMED Code(s): 916034450, 698848452 ICD Code: R42 - DIZZINESS AND GIDDINESS Status: Acute Current Visit: No (4) Valvular heart disease SNOMED Code(s): 431038 ICD Code: I38 - ENDOCARDITIS, VALVE UNSPECIFIED Status: Acute Current Visit: No Problem List Initiated/Reviewed/Updated: Yes Orders Last 24hrs: Active Orders 24 hr Category Date Time Status Patient Status [ADT] Routine ADT 01/08/18 23:56 Active Peripheral IV Care [RC] Q2HR Care 01/08/18 17:06 Active Up ad Marcela [RC] ASDIRECTED Care 01/09/18 00:02 Active Clear Liquid Diet [DIET] Diet 01/09/18 Lunch Active Chest 2V [CR] Routine Exams 01/09/18 07:00 Taken Chest 2V [CR] Stat Exams 01/08/18 17:16 Taken Chest w Cont [CT] Stat Exams 01/08/18 20:48 Taken BASIC METABOLIC PANEL,BMP [CHEM] AM Lab 01/10/18 05:11 Ordered BASIC METABOLIC PANEL,BMP [CHEM] AM Lab 01/11/18 05:11 Ordered CBC WITH AUTO DIFF [HEME] AM Lab 01/10/18 05:11 Ordered CBC WITH AUTO DIFF [HEME] AM Lab 01/11/18 05:11 Ordered CULTURE BLOOD [BC] Stat Lab 01/08/18 17:19 Results CULTURE BLOOD [BC] Stat Lab 01/08/18 17:27 Results MAGNESIUM [CHEM] AM Lab 01/10/18 05:11 Ordered MAGNESIUM [CHEM] AM Lab 01/11/18 05:11 Ordered RESPIRATORY PANEL Stat Lab 01/08/18 18:00 Received STREP PNEUMONIAE ANTIGEN [MREF] Routine Lab 01/08/18 17:55 Received UA W/MICROSCOPIC [URIN] Stat Lab 01/08/18 17:55 Ordered [place] [place] [facility] I[facility] LAB [REF] Stat Lab 01/08/18 17:19 Received Acetaminophen [Tylenol] Med 01/09/18 00:17 Active 650 mg PO Q6H PRN Benzocaine/Cetylpyrd/Menthol [Cepacol Sore Throat] Med 01/09/18 00:18 Active 1 lozenge MUCMEM Q2HR PRN DOPamine/Dextrose 5%-Water [DOPamine in D5W 400 MG/250 Med 01/08/18 23:30 Active ML] 400 mg in 250 ml IV TITRATE Enoxaparin [Lovenox] Med 01/09/18 09:00 Active 40 mg SUBCUT DAILY Levofloxacin/Dextrose 5%-Water [Levaquin in D5W 750 MG/ Med 01/09/18 20:00 Active 150 ML] 750 mg Premix Bag 1 bag IV Q24H Ondansetron [Zofran] Med 01/09/18 00:13 Active 4 mg IVPUSH Q8H PRN Sodium Chloride 0.9% [Normal Saline] 1,000 ml Med 01/09/18 10:45 Active IV ASDIRECTED Sodium Chloride 0.9% [Saline Flush] Med 01/08/18 17:06 Active 10 ml FLUSH ASDIRECTED PRN Temazepam [Restoril] Med 01/09/18 00:20 Active 15 mg PO BEDTIME PRN metroNIDAZOLE/Normal Saline [Flagyl 500 MG in NS 100 ML Med 01/09/18 04:00 Active ] 500 mg Premix Bag 1 bag IV Q8H Blood Culture x2 Reflex Set [OM.PC] Stat Oth 01/08/18 17:06 Ordered Peripheral IV Insertion Adult [OM.PC] Routine Oth 01/08/18 17:06 Ordered Resuscitation Status Routine Resus Stat 01/09/18 00:50 Ordered Medication Orders Acetaminophen (Tylenol) 650 mg PO Q6H PRN PRN Reason: Pain/Fever Last Admin: 01/09/18 07:43 Dose: 650 mg Benzocaine/Menthol (Cepacol Sore Throat) 1 lozenge MUCMEM Q2HR PRN PRN Reason: Sore Throat Enoxaparin Sodium (Lovenox) 40 mg SUBCUT DAILY BARBER Last Admin: 01/09/18 08:03 Dose: 40 mg Dopamine HCl/Dextrose (Dopamine In D5w 400 Mg/250 Ml) 400 mg in 250 mls @ 18.563 mls/hr IV TITRATE BARBER; Protocol Last Titration: 01/09/18 08:17 Dose: 0 mcg/kg/min, 0 mls/hr Titration: 01/09/18 08:02 Dose: 1 mcg/kg/min, 3.713 mls/hr Titration: 01/09/18 07:39 Dose: 1.5 mcg/kg/min, 5.569 mls/hr Titration: 01/09/18 06:49 Dose: 2 mcg/kg/min, 7.425 mls/hr Titration: 01/09/18 05:23 Dose: 3 mcg/kg/min, 11.138 mls/hr Titration: 01/09/18 04:13 Dose: 4 mcg/kg/min, 14.85 mls/hr Titration: 01/09/18 01:01 Dose: 5 mcg/kg/min, 17.69 mls/hr Admin: 01/09/18 00:12 Dose: 3 mcg/kg/min, 10.614 mls/hr Levofloxacin/Dextrose 750 mg/ (Premix) 150 mls @ 100 mls/hr IV Q24H BARBER Metronidazole 500 mg/ Premix 100 mls @ 100 mls/hr IV Q8H BARBER Last Admin: 01/09/18 11:44 Dose: 100 mls/hr Infusion: 01/09/18 04:11 Dose: 100 mls/hr Admin: 01/09/18 03:11 Dose: 100 mls/hr Sodium Chloride (Normal Saline) 1,000 mls @ 100 mls/hr IV ASDIRECTED BARBER Last Admin: 01/09/18 10:56 Dose: 100 mls/hr Ondansetron HCl (Zofran) 4 mg IVPUSH Q8H PRN PRN Reason: Nausea/Vomiting Sodium Chloride (Saline Flush) 10 ml FLUSH ASDIRECTED PRN PRN Reason: Keep Vein Open Last Admin: 01/08/18 17:28 Dose: 10 ml Temazepam (Restoril) 15 mg PO BEDTIME PRN PRN Reason: Sleep Assessment/Plan Comment:: Impression: Sepsis protocol Infectious work up--doubt PNA; or Probable source is GI--GB, started on Levoquin/Flagyl Doubt ascending cholangitis Chronic abnormal radiographic studies with herniated liver, right sloan-diaphragm Chronic MVR; history of rheumatic heart disease HLD HTN Plan: ICU re: sepsis protocol Continue IV Levoquin/Flagy Pain meds/anti-emetic as needed. Home meds Daily labs DVT/GI prophylaxis
[2018-01-09] MEDS ORDERED: HYDROmorphone 1 MG/ML Syringe IVPUSH ONE (13:20)
--- NOTE | 2018-01-09 13:34 | PCM.DCSUM1 ---
Discharge Summary - Hospital Course Free Text/Narrative:: 67 year old with herniated liver and gall bladder disease. Radiographic studies were reviewed with a surgeon. Suggested repair of the right diaphragm, removal of the gall bladder, and will likely need a chest tube post op. Thus will need transfer. The case was reviewed with Dr Frankie Shepard who agreed to see the patient when transferred to [facility]. The patient was accepted by Dr Don, hospitalist on day call. HPI Initial Comments: 67 year old male that has had bouts of abdominal pain, has had gallbladder assessment over the last month. On each occasion, he has been treated medically. he has been seen mid November and early December 2017. Each time he has been at [facility]. he presented to the ED in [place] with a complaint of fever/chills and loss of appetite. Additionally he has had body aches, headache as well as a nonproductive cough. A CXR, [address] of the abdomen and pelvis were performed. It was noted that he had an elevated right sided diaphragm, this was noted to be chronic. On CT of the abdomen and later the CT of the chest, it appears that the liver has significantly reduced the right lung volume. Moreover it appears that the gallbladder and subsequent abdominal pain has been exacerbated by the patient's anatomy. For now, the patient will be treated as sepsis, blood cultures are pending. He may or may not need pressor support. Empirically he has received Levoquin and Flagyl. The infectious work up thus far is otherwise unremarkable. ED visit on 01/08/18 VS 98.8F, HR 99, Resp 22, BP 77/56, Pulse ox 95%; he has received 3 liters of 0.9NS, the rate 150 cc/hr. His blood pressure resonded appropritaely. It was not felt that this is ascending cholangitis. After 0 on 01/08/18, the patient required dopamine, fluid resuscitation was continued. The target was a MAP of 65, the fluids were maintained. The DA was titrated off with an appropriate BP response over night. ED summary of previous visits and [place] evaluations, : Review of patient's records show he was seen in the ER on November, for abdominal pain. He is found to have stones in the neck of his gallbladder. He was sent to [place] where he was medically managed, did not have his gallbladder out. He states that he did well for about 2 weeks, 2 weeks later he was in the in [place] and again explained pain to the right upper quadrant. He was seen at the hospital in [place]. Had an ultrasound and HIDA scan which were normal. He spent the night at the hospital and was discharge. He then presented to the ED last night for abdominal pain and got a complete workup done including labs and imaging. Diagnosed with biliary colic. Went home with pain medication, Zofran and Bentyl. He states he has been pain-free since leaving the ED last night. He does not have any abdominal pain today, 01/08/18 before admission. - Discharge Data Discharge Date: 01/09/18 Discharge Disposition: Home, Self-Care 01 Condition: Good - Patient Instructions Diet: Clear Liquid Diet Activity: Bedrest, May Use Bathroom Driving: Do Not Drive Showering/Bathing: May Shower Notify Provider of: Fever, Increased Pain, Nausea and/or Vomiting - Discharge Plan *PRESCRIPTION DRUG MONITORING PROGRAM REVIEWED*: No *COPY OF PRESCRIPTION DRUG MONITORING REPORT IN PATIENT JUAN: No Home Medications: Home Meds Metoprolol Tartrate [Lopressor] 25 mg PO Q12HR 02/23/16 [History] Aspirin [Halfprin] 81 mg PO DAILY 10/31/16 [History] Omeprazole Magnesium [Prilosec Otc] 20 mg PO DAILY 01/06/18 [History] Dicyclomine [Bentyl] 20 mg PO Q6H PRN #5 tablet 01/07/18 [Rx] Ondansetron [Zofran] 4 mg BUCCAL Q6H PRN #5 tab 01/07/18 [Rx] oxyCODONE HCl/Acetaminophen [Percocet 5-325 mg Tablet] 2 each PO Q4H PRN #12 tablet 01/07/18 [Rx] Forms: ED Department Discharge Referrals: Chyna Corona MD [Primary Care Provider] - - Discharge Summary/Plan Comment DC Time >30 min.: No Discharge Summary/Plan Comment: Impression: Sepsis protocol Infectious work up--doubt PNA; or -->Positive BCs with Gm neg rods Probable source is GI--GB, started on Levoquin/Flagyl Doubt ascending cholangitis Chronic abnormal radiographic studies with herniated liver, right sloan-diaphragm Chronic MVR; history of rheumatic heart disease HLD HTN Plan: Transfer-->surgical consult for herniated liver with possible repair and GB removal ICU re: sepsis protocol Continue IV Levoquin/Flagy Pain meds/anti-emetic as needed. Home meds Daily labs DVT/GI prophylaxis - General Info Date of Service: 01/08/18 Functional Status: Reports: Ambulating, Urinating - Review of Systems General: Reports: No Symptoms HEENT: Reports: No Symptoms Pulmonary: Reports: No Symptoms Cardiovascular: Reports: No Symptoms Gastrointestinal: Reports: Abdominal Pain Genitourinary: Reports: No Symptoms Musculoskeletal: Reports: No Symptoms Skin: Reports: No Symptoms Neurological: Reports: No Symptoms Psychiatric: Reports: No Symptoms - Patient Data Vitals - Most Recent: Last Vital Signs Temp 36.8 C 01/09/18 11:52 Pulse 87 01/09/18 11:52 Resp 20 01/09/18 13:00 BP 135/86 01/09/18 13:00 Pulse Ox 100 01/09/18 13:00 Weight - Most Recent: 98.883 kg I&O - Last 24 hours: Intake & Output 01/08/18 01/09/18 01/09/18 22:59 06:59 14:59 Intake Total 1248 180 Output Total 1000 300 Balance 248 -120 Lab Results - Last 24 hrs: Laboratory Results - last 24 hr 01/08/18 01/08/18 01/08/18 Range/Units 17:19 17:19 17:19 WBC 8.10 (4.23-9.07) K/mm3 RBC 4.68 (4.63-6.08) M/mm3 Hgb 14.3 (13.7-17.5) gm/L Hct 41.7 (40.1-51.0) % MCV 89.1 (79.0-92.2) fl MCH 30.6 (25.7-32.2) pg MCHC 34.3 (32.2-35.5) g/dl RDW Std Deviation 45.8 H (35.1-43.9) fL Plt Count 201 (163-337) K/mm3 MPV 9.5 (9.4-12.3) fl Neut % (Auto) (34.0-67.9) % Lymph % (Auto) (21.8-53.1) % Emanuel % (Auto) (5.3-12.2) % Eos % (Auto) (0.8-7.0) Baso % (Auto) (0.1-1.2) % Neut # (Auto) (1.78-5.38) K/mm3 Lymph # (Auto) (1.32-3.57) K/mm3 Emanuel # (Auto) (0.30-0.82) K/mm3 Eos # (Auto) (0.04-0.54) K/mm3 Baso # (Auto) (0.01-0.08) K/mm3 Neutrophils % (Manual) 75 H (40-60) % Band Neutrophils % 9 (0-10) % Lymphocytes % (Manual) 11 L (20-40) % Atypical Lymphs % 0 % Monocytes % (Manual) 2 (2-10) % Eosinophils % (Manual) 3 (0.8-7.0) % Basophils % (Manual) 0 L (0.2-1.2) Manual Slide Review Platelet Estimate Adequate RBC Morph Comment Normal Sodium 137 (136-145) mEq/L Potassium 4.0 (3.5-5.1) mEq/L Chloride 103 (98-107) mEq/L Carbon Dioxide 23 (21-32) mEq/L Anion Gap 15.0 (5-15) BUN 13 (7-18) mg/dL Creatinine 1.0 (0.7-1.3) mg/dL Est Cr Clr Drug Dosing 71.25 mL/min Estimated GFR (MDRD) > 60 (>60) mL/min BUN/Creatinine Ratio 13.0 L (14-18) Glucose 113 (80-115) mg/dL Lactic Acid 1.7 (0.4-2.0) mmol/L Calcium 9.0 (8.5-10.1) mg/dL Magnesium (1.8-2.4) mg/dl Total Bilirubin 0.7 (0.2-1.0) mg/dL GGT (15-85) U/L AST 34 (15-37) U/L ALT 87 H (16-63) U/L Alkaline Phosphatase 80 (46-116) U/L C-Reactive Protein 3.1 H* (<1.0) mg/dL Total Protein 7.1 (6.4-8.2) g/dl Albumin 3.6 (3.4-5.0) g/dl Globulin 3.5 gm/dL Albumin/Globulin Ratio 1.0 (1-2) Lipase 179 (73-393) U/L Urine Color (Yellow) Urine Appearance (Clear) Urine pH (5.0-8.0) Ur Specific [place] (1.005-1.030) Urine Protein (Negative) Urine Glucose (UA) (Negative) Urine Ketones (Negative) Urine Occult Blood (Negative) Urine Nitrite (Negative) Urine Bilirubin (Negative) Urine Urobilinogen (0.2-1.0) Ur Leukocyte Esterase (Negative) Urine RBC (0-5) /hpf Urine WBC (0-5) /hpf Ur Epithelial Cells (0-5) /hpf Urine Bacteria (FEW) /hpf Urine Mucus (FEW) /hpf Mycoplasma pneumon IgM (NEGATIVE) 01/08/18 01/08/18 01/08/18 Range/Units 17:19 17:19 17:55 WBC (4.23-9.07) K/mm3 RBC (4.63-6.08) M/mm3 Hgb (13.7-17.5) gm/L Hct (40.1-51.0) % MCV (79.0-92.2) fl MCH (25.7-32.2) pg MCHC (32.2-35.5) g/dl RDW Std Deviation (35.1-43.9) fL Plt Count (163-337) K/mm3 MPV (9.4-12.3) fl Neut % (Auto) (34.0-67.9) % Lymph % (Auto) (21.8-53.1) % Emanuel % (Auto) (5.3-12.2) % Eos % (Auto) (0.8-7.0) Baso % (Auto) (0.1-1.2) % Neut # (Auto) (1.78-5.38) K/mm3 Lymph # (Auto) (1.32-3.57) K/mm3 Emanuel # (Auto) (0.30-0.82) K/mm3 Eos # (Auto) (0.04-0.54) K/mm3 Baso # (Auto) (0.01-0.08) K/mm3 Neutrophils % (Manual) (40-60) % Band Neutrophils % (0-10) % Lymphocytes % (Manual) (20-40) % Atypical Lymphs % % Monocytes % (Manual) (2-10) % Eosinophils % (Manual) (0.8-7.0) % Basophils % (Manual) (0.2-1.2) Manual Slide Review Platelet Estimate RBC Morph Comment Sodium (136-145) mEq/L Potassium (3.5-5.1) mEq/L Chloride (98-107) mEq/L Carbon Dioxide (21-32) mEq/L Anion Gap (5-15) BUN (7-18) mg/dL Creatinine (0.7-1.3) mg/dL Est Cr Clr Drug Dosing mL/min Estimated GFR (MDRD) (>60) mL/min BUN/Creatinine Ratio (14-18) Glucose (80-115) mg/dL Lactic Acid (0.4-2.0) mmol/L Calcium (8.5-10.1) mg/dL Magnesium (1.8-2.4) mg/dl Total Bilirubin (0.2-1.0) mg/dL GGT 168 H (15-85) U/L AST (15-37) U/L ALT (16-63) U/L Alkaline Phosphatase (46-116) U/L C-Reactive Protein (<1.0) mg/dL Total Protein (6.4-8.2) g/dl Albumin (3.4-5.0) g/dl Globulin gm/dL Albumin/Globulin Ratio (1-2) Lipase (73-393) U/L Urine Color Yellow (Yellow) Urine Appearance Clear (Clear) Urine pH 6.5 (5.0-8.0) Ur Specific [place] 1.025 (1.005-1.030) Urine Protein Negative (Negative) Urine Glucose (UA) Negative (Negative) Urine Ketones Negative (Negative) Urine Occult Blood Negative (Negative) Urine Nitrite Negative (Negative) Urine Bilirubin Negative (Negative) Urine Urobilinogen 0.2 (0.2-1.0) Ur Leukocyte Esterase Negative (Negative) Urine RBC Not seen (0-5) /hpf Urine WBC 0-5 (0-5) /hpf Ur Epithelial Cells Not seen (0-5) /hpf Urine Bacteria Rare (FEW) /hpf Urine Mucus Few (FEW) /hpf Mycoplasma pneumon IgM Negative (NEGATIVE) 01/09/18 01/09/18 Range/Units 05:25 05:25 WBC 8.16 (4.23-9.07) K/mm3 RBC 4.33 L (4.63-6.08) M/mm3 Hgb 13.2 L (13.7-17.5) gm/L Hct 39.5 L (40.1-51.0) % MCV 91.2 (79.0-92.2) fl MCH 30.5 (25.7-32.2) pg MCHC 33.4 (32.2-35.5) g/dl RDW Std Deviation 48.2 H (35.1-43.9) fL Plt Count 179 (163-337) K/mm3 MPV 9.5 (9.4-12.3) fl Neut % (Auto) 85.1 H (34.0-67.9) % Lymph % (Auto) 8.1 L (21.8-53.1) % Emanuel % (Auto) 4.8 L (5.3-12.2) % Eos % (Auto) 1.1 (0.8-7.0) Baso % (Auto) 0.5 (0.1-1.2) % Neut # (Auto) 6.95 H (1.78-5.38) K/mm3 Lymph # (Auto) 0.66 L (1.32-3.57) K/mm3 Emanuel # (Auto) 0.39 (0.30-0.82) K/mm3 Eos # (Auto) 0.09 (0.04-0.54) K/mm3 Baso # (Auto) 0.04 (0.01-0.08) K/mm3 Neutrophils % (Manual) (40-60) % Band Neutrophils % (0-10) % Lymphocytes % (Manual) (20-40) % Atypical Lymphs % % Monocytes % (Manual) (2-10) % Eosinophils % (Manual) (0.8-7.0) % Basophils % (Manual) (0.2-1.2) Manual Slide Review Abnormal smear Platelet Estimate RBC Morph Comment Sodium 142 (136-145) mEq/L Potassium 4.1 (3.5-5.1) mEq/L Chloride 109 H (98-107) mEq/L Carbon Dioxide 22 (21-32) mEq/L Anion Gap 15.1 H (5-15) BUN 13 (7-18) mg/dL Creatinine 1.1 (0.7-1.3) mg/dL Est Cr Clr Drug Dosing 64.77 mL/min Estimated GFR (MDRD) > 60 (>60) mL/min BUN/Creatinine Ratio 11.8 L (14-18) Glucose 122 H (80-115) mg/dL Lactic Acid (0.4-2.0) mmol/L Calcium 8.1 L (8.5-10.1) mg/dL Magnesium 1.7 L (1.8-2.4) mg/dl Total Bilirubin (0.2-1.0) mg/dL GGT (15-85) U/L AST (15-37) U/L ALT (16-63) U/L Alkaline Phosphatase (46-116) U/L C-Reactive Protein (<1.0) mg/dL Total Protein (6.4-8.2) g/dl Albumin (3.4-5.0) g/dl Globulin gm/dL Albumin/Globulin Ratio (1-2) Lipase (73-393) U/L Urine Color (Yellow) Urine Appearance (Clear) Urine pH (5.0-8.0) Ur Specific [place] (1.005-1.030) Urine Protein (Negative) Urine Glucose (UA) (Negative) Urine Ketones (Negative) Urine Occult Blood (Negative) Urine Nitrite (Negative) Urine Bilirubin (Negative) Urine Urobilinogen (0.2-1.0) Ur Leukocyte Esterase (Negative) Urine RBC (0-5) /hpf Urine WBC (0-5) /hpf Ur Epithelial Cells (0-5) /hpf Urine Bacteria (FEW) /hpf Urine Mucus (FEW) /hpf Mycoplasma pneumon IgM (NEGATIVE) MIGUEL Results - Last 24 hrs: Microbiology 01/08/18 17:19 Anaerobic Blood Culture - Preliminary Blood - Venous Gram Negative Rods 01/08/18 17:27 Aerobic Blood Culture - Preliminary Blood - Venous - Lab Draw Gram Negative Rods Anaerobic Blood Culture - Preliminary Gram Negative Rods Med Orders - Current: Current Medications Acetaminophen (Tylenol) 650 mg PO Q6H PRN PRN Reason: Pain/Fever Last Admin: 01/09/18 07:43 Dose: 650 mg Benzocaine/Menthol (Cepacol Sore Throat) 1 lozenge MUCMEM Q2HR PRN PRN Reason: Sore Throat Enoxaparin Sodium (Lovenox) 40 mg SUBCUT DAILY BARBER Last Admin: 01/09/18 08:03 Dose: 40 mg Dopamine HCl/Dextrose (Dopamine In D5w 400 Mg/250 Ml) 400 mg in 250 mls @ 18.563 mls/hr IV TITRATE BARBER; Protocol Last Titration: 01/09/18 08:17 Dose: 0 mcg/kg/min, 0 mls/hr Levofloxacin/Dextrose 750 mg/ (Premix) 150 mls @ 100 mls/hr IV Q24H BARBER Metronidazole 500 mg/ Premix 100 mls @ 100 mls/hr IV Q8H BARBER Last Admin: 01/09/18 11:44 Dose: 100 mls/hr Sodium Chloride (Normal Saline) 1,000 mls @ 100 mls/hr IV ASDIRECTED BARBER Last Admin: 01/09/18 13:09 Dose: 100 mls/hr Ondansetron HCl (Zofran) 4 mg IVPUSH Q8H PRN PRN Reason: Nausea/Vomiting Sodium Chloride (Saline Flush) 10 ml FLUSH ASDIRECTED PRN PRN Reason: Keep Vein Open Last Admin: 01/08/18 17:28 Dose: 10 ml Temazepam (Restoril) 15 mg PO BEDTIME PRN PRN Reason: Sleep Discontinued Medications Acetaminophen (Tylenol) 975 mg PO NOW ONE Stop: 01/08/18 17:17 Last Admin: 01/08/18 17:28 Dose: 975 mg Acetaminophen (Tylenol) 975 mg PO NOW ONE Stop: 01/08/18 23:04 Last Admin: 01/09/18 00:36 Dose: 975 mg Hydromorphone HCl (Dilaudid) 0.5 mg IVPUSH ONETIME ONE Stop: 01/08/18 20:20 Last Admin: 01/08/18 20:31 Dose: Not Given Hydromorphone HCl (Dilaudid) 0.5 mg IVPUSH ONETIME ONE Stop: 01/09/18 08:36 Last Admin: 01/09/18 09:42 Dose: Not Given Hydromorphone HCl (Dilaudid) 1 mg IVPUSH ONETIME ONE Stop: 01/09/18 13:21 Sodium Chloride (Normal Saline) 1,000 mls @ 999 mls/hr IV ONETIME ONE Stop: 01/08/18 18:53 Last Admin: 01/08/18 18:11 Dose: 999 mls/hr Sodium Chloride (Normal Saline) 1,000 mls @ 999 mls/hr IV ONETIME ONE Stop: 01/08/18 20:14 Last Admin: 01/08/18 19:18 Dose: 999 mls/hr Levofloxacin/Dextrose 750 mg/ (Premix) 150 mls @ 100 mls/hr IV ONETIME ONE Stop: 01/08/18 20:53 Last Admin: 01/08/18 20:38 Dose: 100 mls/hr Metronidazole 500 mg/ Premix 100 mls @ 100 mls/hr IV ONETIME ONE Stop: 01/08/18 20:23 Last Admin: 01/08/18 19:31 Dose: 100 mls/hr Sodium Chloride (Normal Saline) 1,000 mls @ 999 mls/hr IV ONETIME ONE Stop: 01/08/18 22:25 Last Admin: 01/08/18 22:18 Dose: 999 mls/hr Sodium Chloride (Normal Saline) 1,000 mls @ 150 mls/hr IV ASDIRECTED [facility] Last Admin: 01/09/18 05:23 Dose: 150 mls/hr Dopamine HCl/Dextrose (Dopamine In D5w 400 Mg/250 Ml) Confirm Administered Dose 400 mg in 250 mls @ as directed .ROUTE .STK-MED ONE Stop: 01/08/18 23:22 Last Admin: 01/09/18 00:51 Dose: Not Given Magnesium Sulfate 2 gm/ Premix 50 mls @ 25 mls/hr IV ONETIME ONE Stop: 01/09/18 10:29 Last Admin: 01/09/18 09:36 Dose: 25 mls/hr Iopamidol (Isovue-300 (61%)) 100 ml IVPUSH ONETIME ONE Stop: 01/08/18 22:39 Last Admin: 01/08/18 22:39 Dose: 80 ml Ketorolac Tromethamine (Toradol) 30 mg IVPUSH ONETIME ONE Stop: 01/08/18 17:55 Last Admin: 01/08/18 18:08 Dose: 30 mg Ketorolac Tromethamine (Toradol) 60 mg IM ONETIME ONE Stop: 01/09/18 09:12 Last Admin: 01/09/18 09:31 Dose: 60 mg Lorazepam (Ativan) 0.5 mg IVPUSH ONETIME ONE Stop: 01/08/18 20:20 Last Admin: 01/08/18 20:36 Dose: 0.5 mg Lorazepam (Ativan) 0.5 mg IVPUSH ONETIME ONE Stop: 01/08/18 22:06 Last Admin: 01/08/18 22:20 Dose: 0.5 mg Metoclopramide HCl (Reglan) 5 mg IVPUSH ONETIME ONE Stop: 01/08/18 23:20 Last Admin: 01/09/18 00:36 Dose: 5 mg Morphine Sulfate (Morphine) 2 mg IVPUSH ONETIME ONE Stop: 01/08/18 21:01 Last Admin: 01/09/18 00:23 Dose: Not Given Ondansetron HCl (Zofran) 4 mg IVPUSH ONETIME ONE Stop: 01/08/18 17:17 Last Admin: 01/08/18 17:28 Dose: 4 mg Zolpidem Tartrate (Ambien) 10 mg PO NOW STA Stop: 01/08/18 23:40 Last Admin: 01/09/18 00:36 Dose: 10 mg - Exam Quality Assessment: Reports: DVT Prophylaxis General: Reports: Alert, Oriented, Cooperative, No Acute Distress HEENT: Reports: Pupils Equal, Pupils Reactive, EOMI Neck: Reports: Trachea Midline, No JVD Lungs: Reports: Normal Respiratory Effort Cardiovascular: Reports: Regular Rate, Regular Rhythm GI/Abdominal Exam: No Organomegaly, No Distention, Tender (RUQ) (Male) Exam: Deferred Rectal (Males) Exam: Deferred Back Exam: Reports: Normal Inspection Extremities: Normal Inspection, Normal Capillary Refill Skin: Reports: Warm Neurological: Reports: No New Focal Deficit Psy/Mental Status: Reports: Alert, Normal Affect, Normal Mood
[2018-01-09 14:04] VITALS: BP 111/76
[2018-01-09] MEDS ORDERED: Levofloxacin/Dextrose 5%-Water 750 MG in Premix Bag 1 BAG IV SCH (20:00)
== END 2018-01-09 14:54 | disposition home or self-care (01) | DRG 872 ==
LOC: JD.ED 16:41 → JD.ICU 23:45
PROVIDERS: ADMIT Internal Medicine Cardiovascular Disease; ATTEND Internal Medicine Cardiovascular Disease
DX: A41.50 Gram-negative sepsis, unspecified (principal); K80.50 Calculus of bile duct without cholangitis or cholecystitis without obstruction; E78.5 Hyperlipidemia, unspecified; I10 Essential (primary) hypertension; K76.89 Other specified diseases of liver; H54.7 Unspecified visual loss; E78.00 Pure hypercholesterolemia, unspecified; K21.9 Gastro-esophageal reflux disease without esophagitis; G43.909 Migraine, unspecified, not intractable, without status migrainosus; Z79.82 Long term (current) use of aspirin; Z95.2 Presence of prosthetic heart valve; Z79.899 Other long term (current) drug therapy; Z87.01 Personal history of pneumonia (recurrent)
CPT/HCPCS: 36415; 71046; 71260; 80048; 80053; 81001; 82977; 83605; 83690; 83735; 85007; 85025; 85027; 86140; 86738; 87040; 87486; 87581; 87632; 87798; 87899; 96361; 96365; 96366; 96367; 96374; 96375; 99285-25; A9270-GY; J1170; J1265; J1650; J1885; J1956; J2060; J2405; J2765; J3475; J3490; J7040; J7050; Q9967

== ENCOUNTER 2018-05-19 15:05 | Emergency (ER) | payer OTHER, MEDICARE ==
[2018-05-19 15:29] VITALS: BP 141/97
[2018-05-19] MEDS ORDERED: Iopamidol 612 MG/ML 100 ML Bottle IVPUSH ONE (16:12)
[2018-05-19] MEDS ORDERED: Diatrizoate Meglumine/Diatrizoate Sodium 37% 120 ML Bottle PO ONE (16:12)
[2018-05-19] MEDS ORDERED: Sodium Chloride 0.9% 10 ML Syringe FLUSH ONE (16:12)
--- NOTE | 2018-05-19 16:13 | EDM.PDOC ---
ED HPI GENERAL MEDICAL PROBLEM - General Chief Complaint: Abdominal Pain Stated Complaint: ABDOMINAL BLOATING AND EYE REDNESS Time Seen by Provider: 05/19/18 15:35 Source of Information: Reports: Patient, RN Notes Reviewed History Limitations: Reports: No Limitations - History of Present Illness INITIAL COMMENTS - FREE TEXT/NARRATIVE: Patient is a 67 year old male who presents to the ED for the evaluation of feeling bloated. He notes to have started yesterday. He is not having any pain in his abdomen, just mainly the bloating. He states that he had his gallbladder taken out in December and was found to have an umbilical hernia but opted not to have that surgically repaired, since it was not bothersome. He did have a BM this morning and he has been urinating without difficulty. He denies any nausea/ vomiting/diarrhea, fever/chills, chest pain but did note some mild shortness of breath. His thinks that maybe his eyes appear a little bloodshot since yesterday as well. He denies any sick contacts or other feelings of being unwell. He states that he is still able to pass gas. Middle Abdomen Pain Score (Numeric/FACES): 6 - Related Data Allergies Allergy/AdvReac Type Severity Reaction Status Date / Time No Known Allergies Allergy Verified 01/08/18 16:50 Home Meds: Home Meds Metoprolol Tartrate [Lopressor] 25 mg PO Q12HR 02/23/16 [History] Aspirin [Halfprin] 81 mg PO DAILY 10/31/16 [History] Omeprazole Magnesium [Prilosec Otc] 20 mg PO DAILY 01/06/18 [History] Magnesium Amino Acid Chelate [Magnesium] 100 mg PO DAILY 05/19/18 [History] Past Medical History HEENT History: Reports: Impaired Vision Other HEENT History: wears eyeglasses Cardiovascular History: Reports: Heart Murmur, Heart Valve Replacement, High Cholesterol, Hypertension, Other (See Below) Other Cardiovascular History: mitral valve replaced Respiratory History: Reports: Pneumonia, Recurrent Other Respiratory History: in childhood Gastrointestinal History: Reports: GERD Other Gastrointestinal History: ulcertive colitis Neurological History: Reports: Migraines Endocrine/Metabolic History: Reports: Other (See Below) Other Endocrine/Metabolic History: states has hypoglycemia - Infectious Disease History Infectious Disease History: Reports: Chicken Pox, Measles, Mumps, Rheumatic Fever, Other (See Below) Other Infectious Disease History: e-coli - Past Surgical History Cardiovascular Surgical History: Reports: Carotid Endarterectomy GI Surgical History: Reports: Cholecystectomy, Colonoscopy, Hernia, Inguinal Social & Family History - Family History Family Medical History: Noncontributory - Tobacco Use Smoking Status *Q: Never Smoker - Caffeine Use Caffeine Use: Reports: Coffee - Recreational Drug Use Recreational Drug Use: No - Living Situation & Occupation Living situation: Reports: Occupation: Employed ED ROS GENERAL - Review of Systems Review Of Systems: See Below Constitutional: Denies: Fever, Chills, Malaise, Weakness, Fatigue, Decreased Appetite HEENT: Reports: No Symptoms Respiratory: Reports: Shortness of Breath. Denies: Wheezing, Cough, Sputum Cardiovascular: Denies: Chest Pain Endocrine: Reports: No Symptoms GI/Abdominal: Reports: Distension, Flatus. Denies: Constipation, Diarrhea, Decreased Appetite, Nausea, Vomiting : Denies: Dysuria, Flank Pain, Frequency, Urgency Musculoskeletal: Reports: No Symptoms Skin: Reports: No Symptoms Neurological: Reports: No Symptoms Psychiatric: Reports: No Symptoms Hematologic/Lymphatic: Reports: No Symptoms Immunologic: Reports: No Symptoms ED EXAM, GI/ABD - Physical Exam Exam: See Below Exam Limited By: No Limitations General Appearance: Alert, WD/WN, No Apparent Distress Eyes: Bilateral: Normal Appearance Ears: Normal External Exam Nose: Normal Inspection Throat/Mouth: Normal Inspection, Normal Oropharynx, No Airway Compromise Head: Atraumatic, Normocephalic Neck: Normal Inspection, Supple, Non-Tender, Full Range of Motion Respiratory/Chest: No Respiratory Distress, Lungs Clear, Normal Breath Sounds, No Accessory Muscle Use, Chest Non-Tender Cardiovascular: Normal Peripheral Pulses, Regular Rate, Rhythm, No Murmur GI/Abdominal Exam: Soft, Distended (grossly distended, no fluid shift appreciated), Tender (he is mildly tender to umbilical hernia, was unable to reduce hernia at exam, he is tender surrounding the hernia too.), Other (bowel sounds hard to appreciate due to distension). No: Guarding, Rigid, Rebound Extremities: Normal Inspection, Normal Capillary Refill Neurological: Alert, Oriented, Normal Cognition, No Motor/Sensory Deficits Psychiatric: Normal Affect, Normal Mood Skin Exam: Warm, Dry, Intact, Normal Color, No Rash Course - Vital Signs Last Recorded V/S: Last Vital Signs Temp 98.0 F 05/19/18 15:27 Pulse 82 05/19/18 15:27 Resp 20 05/19/18 15:27 BP 141/97 H 05/19/18 15:27 Pulse Ox 97 05/19/18 15:27 - Orders/Labs/Meds Orders: Active Orders 24 hr Category Date Time Status Sodium Chloride 0.9% [Normal Saline] 1,000 ml Med 05/19/18 16:15 Active IV ASDIRECTED Medication Orders Sodium Chloride (Normal Saline) 1,000 mls @ 999 mls/hr IV ASDIRECTED BARBER Last Admin: 05/19/18 16:19 Dose: 999 mls/hr Labs: Laboratory Tests 05/19/18 05/19/18 05/19/18 Range/Units 16:14 16:17 16:17 WBC 9.73 H (4.23-9.07) K/mm3 RBC 5.35 (4.63-6.08) M/mm3 Hgb 16.4 (13.7-17.5) gm/L Hct 47.0 (40.1-51.0) % MCV 87.9 (79.0-92.2) fl MCH 30.7 (25.7-32.2) pg MCHC 34.9 (32.2-35.5) g/dl RDW Std Deviation 46.7 H (35.1-43.9) fL Plt Count 225 (163-337) K/mm3 MPV 9.4 (9.4-12.3) fl Neutrophils % (Manual) 68 H (40-60) % Band Neutrophils % 4 (0-10) % Lymphocytes % (Manual) 18 L (20-40) % Atypical Lymphs % 0 % Monocytes % (Manual) 5 (2-10) % Eosinophils % (Manual) 3 (0.8-7.0) % Basophils % (Manual) 2 H (0.2-1.2) Toxic Granulation 1+ slight Platelet Estimate Adequate Plt Morphology Comment Normal RBC Morph Comment Normal Sodium 137 (136-145) mEq/L Potassium 4.4 (3.5-5.1) mEq/L Chloride 102 (98-107) mEq/L Carbon Dioxide 25 (21-32) mEq/L Anion Gap 14.4 (5-15) BUN 17 (7-18) mg/dL Creatinine 0.8 (0.7-1.3) mg/dL Est Cr Clr Drug Dosing 89.06 mL/min Estimated GFR (MDRD) > 60 (>60) mL/min BUN/Creatinine Ratio 21.3 H (14-18) Glucose 105 (80-115) mg/dL Calcium 9.1 (8.5-10.1) mg/dL Total Bilirubin 0.6 (0.2-1.0) mg/dL AST TNP ALT TNP Alkaline Phosphatase 88 (46-116) U/L C-Reactive Protein 0.8 (<1.0) mg/dL Total Protein 7.4 (6.4-8.2) g/dl Albumin 3.8 (3.4-5.0) g/dl Globulin 3.6 gm/dL Albumin/Globulin Ratio 1.1 (1-2) Urine Color Yellow (Yellow) Urine Appearance Clear (Clear) Urine pH 6.5 (5.0-8.0) Ur Specific [place] 1.020 (1.005-1.030) Urine Protein Negative (Negative) Urine Glucose (UA) Negative (Negative) Urine Ketones Negative (Negative) Urine Occult Blood Negative (Negative) Urine Nitrite Negative (Negative) Urine Bilirubin Negative (Negative) Urine Urobilinogen 0.2 (0.2-1.0) Ur Leukocyte Esterase Negative (Negative) Urine RBC Not seen (0-5) /hpf Urine WBC 0-5 (0-5) /hpf Ur Epithelial Cells Not seen (0-5) /hpf Ur Squamous Epith Cells 0-5 (0-5) /hpf Urine Bacteria Rare (FEW) /hpf Urine Mucus Not seen (FEW) /hpf Meds: Medications Generic Name Dose Route Start Last Admin Trade Name Freq PRN Reason Stop Dose Admin Sodium Chloride 1,000 mls @ 999 mls/hr 05/19/18 16:15 05/19/18 16:19 Normal Saline IV 999 mls/hr ASDIRECTED BARBER Administration Discontinued Medications Generic Name Dose Route Start Last Admin Trade Name Freq PRN Reason Stop Dose Admin Diatrizoate Meglum/Diatrizoate Sod 90 ml 05/19/18 16:12 05/19/18 17:33 Gastrografin 37% PO 05/19/18 16:13 90 ml ONETIME ONE Administration Iopamidol 100 ml 05/19/18 16:12 05/19/18 17:33 Isovue-300 (61%) IVPUSH 05/19/18 16:13 100 ml ONETIME ONE Administration Ondansetron HCl 4 mg 05/19/18 18:36 05/19/18 18:50 Zofran Odt PO 05/19/18 18:37 4 mg ONETIME ONE Administration Sodium Chloride 10 ml 05/19/18 16:12 05/19/18 16:19 Saline Flush FLUSH 05/19/18 16:13 10 ml ONETIME ONE Administration - Re-Assessments/Exams Free Text/Narrative Re-Assessment/Exam: 05/19/18 16:16 Pt presents to the ED for the evaluation of abdominal distension. Etiology is unclear, have ordered abdomen pelvis CT w contrast, CBC, CMP, CRP, and UA for further evaluation. I am wondering if his umbilical hernia is not incarcerated or strangulated, and may be causing his distension. 05/19/18 17:09 Labs are back and are essentially within normal limits. 05/19/18 18:55 CT does not demonstrate any strangulation or incarceration of his hernia, or any bowel obstruction. Liquid diet for 24 hours with advance to bland as tolerated. Will be sent home with bottle of mag citrate. Departure - Departure Time of Disposition: 18:57 Disposition: Home, Self-Care 01 Condition: Fair Clinical Impression: Generalized bloating - Discharge Information *PRESCRIPTION DRUG MONITORING PROGRAM REVIEWED*: No *COPY OF PRESCRIPTION DRUG MONITORING REPORT IN PATIENT JUAN: No Instructions: Abdominal Bloating Referrals: Chyna Corona MD [Primary Care Provider] - Forms: ED Department Discharge Additional Instructions: You have been evaluated in the ED for your distended abdomen. Your CT did not demonstrate any intestinal obstruction or strangulation/ incarceration of your umbilical hernia. It is likely due to something you may have eaten. Please take the magnesium citrate at home, start with half a bottle to see if this doesn't provide results. Please stick to Clear Liquid diet for 24 hours with advance to bland as tolerated. Please return to ED if your symptoms should change or worsen. - My Orders Last 24 Hours: My Active Orders 05/19/18 16:15 Sodium Chloride 0.9% [Normal Saline] 1,000 ml IV ASDIRECTED - Assessment/Plan Last 24 Hours: My Active Orders 05/19/18 16:15 Sodium Chloride 0.9% [Normal Saline] 1,000 ml IV ASDIRECTED
[2018-05-19] MEDS ORDERED: Sodium Chloride 0.9% 1,000 ML IV SCH (16:15)
--- NOTE | 2018-05-19 17:59 | CT ---
CT abdomen and pelvis Technique: Multiple axial sections were obtained from above the dome of the diaphragm inferiorly to the pubic symphysis. Intravenous and oral contrast was utilized. Delayed images were obtained through the bladder. Findings: Small fat-containing umbilical hernia is noted. Small soft tissue nodule is seen within this hernia unrelated to bowel which is likely incidental. Hernia opening is approximately 1.6 cm. Visualized lung bases shows nothing acute. Liver shows no focal parenchymal abnormality. Surgical clips are seen from prior cholecystectomy. Spleen appears within normal limits. Adrenal glands show no nodule. Duodenal diverticulum is seen off the fourth portion of the duodenum measuring 4.7 cm which is incidental. Small cyst is noted within the lower right kidney measuring about 1.2 cm. Kidneys otherwise are unremarkable. Pancreas is normal. Aorta shows atherosclerotic calcification without aneurysm. No retroperitoneal adenopathy or mesenteric abnormalities are seen. Graft material is noted within the right anterior lower abdomen. No pelvic mass or adenopathy is seen. No free fluid is seen. Appendix is not visualized with certainty. Delayed images shows contrast within the distal ureters and bladder. Bone window settings were reviewed which shows spondylolisthesis at L5-S1 due to bilateral spondylolisthesis. Spondylolisthesis measures about 4 mm. Disc space narrowing at multiple levels of vacuum phenomena are seen within the lumbar spine. Evidence of annular rupture is seen with epidural air being seen within the central canal of the lower thoracic and lumbar spine. Impression: 1. Small fat-containing umbilical hernia. Small soft tissue nodule unrelated to bowel is noted within the umbilical hernia which is felt to be incidental. 2. Other incidental findings as noted above. Nothing acute is seen. Diagnostic code #2
[2018-05-19] MEDS ORDERED: Ondansetron 4 MG Tab.DIS PO ONE (18:36)
[2018-05-19] MEDS ORDERED: Magnesium Citrate Solution 296 ML Bottle PO ONE (19:00)
== END 2018-05-19 19:10 | disposition home or self-care (01) ==
LOC: JD.ED 15:05
DX: R14.0 Abdominal distension (gaseous) (principal); E78.00 Pure hypercholesterolemia, unspecified; I10 Essential (primary) hypertension; K21.9 Gastro-esophageal reflux disease without esophagitis; Z79.82 Long term (current) use of aspirin; Z79.899 Other long term (current) drug therapy
CPT/HCPCS: 36415; 74177; 80053; 81001; 85007; 85027; 86140; 96360; 99284; A9270; J7040; Q9963; Q9967

== ENCOUNTER 2018-07-03 11:44 | Emergency (ER) | payer OTHER, MEDICARE ==
[2018-07-03 11:57] VITALS: BP 160/99
--- NOTE | 2018-07-03 12:30 | EDM.PDOC ---
ED HPI GENERAL MEDICAL PROBLEM - General Chief Complaint: General Stated Complaint: DIZZINESS Time Seen by Provider: 07/03/18 12:01 Source of Information: Reports: Patient, Family (), RN Notes Reviewed History Limitations: Reports: No Limitations - History of Present Illness INITIAL COMMENTS - FREE TEXT/NARRATIVE: The patient states that he has been feeling lightheaded, even if supine, but worse if he is upright, for more than a year. He reports dyspnea on exertion, after walking as little as about 100 feet, for more than 2 years. He states that his dizziness seems worse today than usual, but his dyspnea on exertion is the same. The patient denies having associated fever, nausea, vomiting, diarrhea , urinary symptoms, palpitations, abdominal pain, lower extremity edema, tinnitus, ear pain, or decreased hearing. He has recurrent constipation. He reports that he has had several prior evaluations for his symptoms, by his PCP, ENT, and his Order Planner, with his most recent evaluation about 1-2 months ago, with his PCP. She suggested that the patient switch taking his blood pressure medicine from one half tablet twice a day to one full tablet once a day, which he did, but without improvement in his symptoms. The patient also reports right upper chest pain whenever he exerts himself, over the past 2 years, but states that he has had several stress tests, all of which have been negative. The patient's PCP is Dr. Chyna Corona. The patient's Order Planner is Dr. Praneeth Meehan. - Related Data Allergies Allergy/AdvReac Type Severity Reaction Status Date / Time No Known Allergies Allergy Verified 07/03/18 11:57 Home Meds: Home Meds Metoprolol Tartrate [Lopressor] 25 mg PO Q12HR 02/23/16 [History] Aspirin [Halfprin] 81 mg PO DAILY 10/31/16 [History] Omeprazole Magnesium [Prilosec Otc] 20 mg PO DAILY 01/06/18 [History] Magnesium Amino Acid Chelate [Magnesium] 100 mg PO DAILY 05/19/18 [History] Past Medical History HEENT History: Reports: Impaired Vision Other HEENT History: wears eyeglasses Cardiovascular History: Reports: High Cholesterol, Hypertension Respiratory History: Reports: Asthma (suspected, as a child) Gastrointestinal History: Reports: GERD, GI Bleed, PUD Endocrine/Metabolic History: Reports: Obesity/BMI 30+, Other (See Below) ( Prediabetes) - Infectious Disease History Infectious Disease History: Reports: Chicken Pox, Measles, Mumps, Rheumatic Fever, Other (See Below) Other Infectious Disease History: e-coli - Past Surgical History Cardiovascular Surgical History: Reports: Carotid Endarterectomy (bilateral), Valve Replacement (porcine mitral, fall 2015), Other (See Below) (Coronary angiogram) GI Surgical History: Reports: Cholecystectomy (Dec 2017), Colonoscopy, Hernia, Inguinal (right) Social & Family History - Family History Family Medical History: Noncontributory - Tobacco Use Smoking Status *Q: Never Smoker - Caffeine Use Caffeine Use: Reports: Coffee - Alcohol Use Alcohol Use History: No - Recreational Drug Use Recreational Drug Use: No - Living Situation & Occupation Living situation: Reports: , with Spouse Occupation: Retired ED ROS GENERAL - Review of Systems Review Of Systems: ROS reveals no pertinent complaints other than HPI. ED EXAM, GENERAL - Physical Exam Exam: See Below Exam Limited By: No Limitations General Appearance: Alert, WD/WN, No Apparent Distress Eye Exam: Bilateral Eye: EOMI, Normal Inspection, PERRL Ears: Normal External Exam, Normal Canal, Hearing Grossly Normal, Normal TMs Nose: Normal Inspection, Normal Mucosa, No Blood Throat/Mouth: Normal Inspection, Normal Lips, Normal Teeth, Normal Gums, Normal Oropharynx, Normal Voice, No Airway Compromise Head: Atraumatic, Normocephalic Neck: Normal Inspection, Full Range of Motion Respiratory/Chest: No Respiratory Distress, Lungs Clear, Normal Breath Sounds, No Accessory Muscle Use Cardiovascular: Normal Peripheral Pulses, Regular Rate, Rhythm, No Gallop, No JVD, No Murmur, No Rub Peripheral Pulses: 4+: Radial (L), Radial (R) GI/Abdominal: Normal Bowel Sounds, Soft, Non-Tender, No Organomegaly, No Distention, No Abnormal Bruit, No Mass, Other (Obese) (Male) Exam: Deferred Rectal (Males) Exam: Deferred Back Exam: Normal Inspection, Full Range of Motion, NT Extremities: Normal Inspection, Normal Range of Motion, Normal Capillary Refill , Other (1-2+ pretibial edema bilaterally) Neurological: Alert, Oriented, CN II-XII Intact, Normal Cognition, No Motor/ Sensory Deficits Psychiatric: Normal Affect Skin Exam: Warm, Dry, Intact, Normal Color, No Rash EKG INTERPRETATION EKG Date: 07/03/18 Time: 12:48 Rhythm: NSR Rate (Beats/Min): 64 [place]: Normal P-Wave: Present ST-T: Normal QT: Normal Comparison: No Change (11/15/2015) Course - Vital Signs Last Recorded V/S: Last Vital Signs Temp 36.8 C 07/03/18 14:54 Pulse 75 07/03/18 14:54 Resp 18 07/03/18 14:54 BP 160/99 H 07/03/18 11:51 Pulse Ox 98 07/03/18 14:54 Orthostatic Blood Pressure [ 153/91 Standing] Orthostatic Blood Pressure [ 105/79 Supine] - Orders/Labs/Meds Orders: Active Orders 24 hr Category Date Time Status EKG Documentation Completion [RC] STAT Care 07/03/18 12:27 Active Orthostatic Vital Signs [RC] STAT Care 07/03/18 12:27 Active Labs: Laboratory Tests 07/03/18 07/03/18 07/03/18 Range/Units 12:42 12:42 12:42 WBC 6.93 (4.23-9.07) K/mm3 RBC 4.94 (4.63-6.08) M/mm3 Hgb 15.0 (13.7-17.5) gm/L Hct 44.3 (40.1-51.0) % MCV 89.7 (79.0-92.2) fl MCH 30.4 (25.7-32.2) pg MCHC 33.9 (32.2-35.5) g/dl RDW Std Deviation 46.5 H (35.1-43.9) fL Plt Count 235 (163-337) K/mm3 MPV 9.4 (9.4-12.3) fl Neutrophils % (Manual) 60 (40-60) % Band Neutrophils % 0 (0-10) % Lymphocytes % (Manual) 33 (20-40) % Atypical Lymphs % 0 % Monocytes % (Manual) 2 (2-10) % Eosinophils % (Manual) 5 (0.8-7.0) % Basophils % (Manual) 0 L (0.2-1.2) Platelet Estimate Adequate RBC Morph Comment Normal D-Dimer, Quantitative 0.30 (0.19-0.50) mg/L Sodium 139 (136-145) mEq/L Potassium 3.9 (3.5-5.1) mEq/L Chloride 104 (98-107) mEq/L Carbon Dioxide 25 (21-32) mEq/L Anion Gap 13.9 (5-15) BUN 18 (7-18) mg/dL Creatinine 1.6 H (0.7-1.3) mg/dL Est Cr Clr Drug Dosing 44.53 mL/min Estimated GFR (MDRD) 44 (>60) mL/min BUN/Creatinine Ratio 11.3 L (14-18) Glucose 125 H (80-115) mg/dL Calcium 8.8 (8.5-10.1) mg/dL Magnesium 1.9 (1.8-2.4) mg/dl Total Bilirubin 0.4 (0.2-1.0) mg/dL AST TNP ALT TNP Alkaline Phosphatase 82 (46-116) U/L Troponin I < 0.017 (0.00-0.056) ng/mL Total Protein 7.2 (6.4-8.2) g/dl Albumin 3.5 (3.4-5.0) g/dl Globulin 3.7 gm/dL Albumin/Globulin Ratio 1.0 (1-2) TSH 3rd Generation 1.890 (0.358-3.74) uIU/mL - Re-Assessments/Exams Free Text/Narrative Re-Assessment/Exam: 07/03/18 12:29 As above, the patient has been experiencing lightheadedness, particularly when upright, and dyspnea on exertion for years. Prior evaluations by his PCP, ENT, and his cardiologists have apparently been negative. I explained to the patient that I will not likely be able to diagnose the cause of his symptoms today, but I will check a few things to make sure that there are no medical emergencies. If his workup today is negative, the patient will need to return to his PCP for further evaluation, that might include a MRI of the patient's brainstem, to make sure that he did not suffer a brainstem infarct years ago. 07/03/18 14:03 The patient's creatinine has returned elevated at 1.6. It was 0.8 on 05/19/2018. The remainder of the patient's workup, including his CBC, the remainder of his CMP, magnesium level, troponin level, D-dimer, TSH, and ECG are unremarkable. 07/03/18 14:06 The patient is not orthostatic. 07/03/18 14:38 Test results discussed with the patient and his . Today's workup found only mild renal insufficiency, otherwise, his workup was unremarkable. I will discharge the patient home, to follow-up with his PCP, Dr. Chyna Corona, who might consider obtaining a MRI of the patient's brainstem to look for a prior small infarct. Departure - Departure Time of Disposition: 14:38 Disposition: Home, Self-Care 01 Condition: Good Clinical Impression: Dizziness, Dyspnea on exertion - Discharge Information *PRESCRIPTION DRUG MONITORING PROGRAM REVIEWED*: Not Applicable *COPY OF PRESCRIPTION DRUG MONITORING REPORT IN PATIENT JUAN: Not Applicable Instructions: Dizziness, [id number] Referrals: Chyna Corona MD [Primary Care Provider] - Forms: ED Department Discharge Additional Instructions: You were seen in the emergency room for chronic lightheadedness and shortness of breath with exertion. Workup in the ER included blood work, positional blood pressure checks, and an ECG. Your workup found that your kidney function is somewhat impaired, with a creatinine of 1.6. It was a 0.8 on 05/19/2018. The remainder of your workup was unremarkable. You are not anemic. There is no sign of an infection. Your electrolytes are all within normal limits. You have not suffered a heart attack. You do not have a blood clot in your lungs. You are not hypothyroid. You are not dehydrated. The cause of your symptoms is not clear. Further evaluation is needed. We recommend that you follow-up with your PCP, Dr. Chyna Corona, for further evaluation, that might include a MRI of your brain stem. If any other problems, please do not hesitate to return to the ER. - My Orders Last 24 Hours: My Active Orders 07/03/18 12:27 EKG Documentation Completion [RC] STAT Orthostatic Vital Signs [RC] STAT - Assessment/Plan Last 24 Hours: My Active Orders 07/03/18 12:27 EKG Documentation Completion [RC] STAT Orthostatic Vital Signs [RC] STAT
== END 2018-07-03 14:50 | disposition home or self-care (01) ==
LOC: JD.ED 11:44
DX: R42 Dizziness and giddiness (principal); R06.00 Dyspnea, unspecified; E78.00 Pure hypercholesterolemia, unspecified; J45.909 Unspecified asthma, uncomplicated; I10 Essential (primary) hypertension; Z79.82 Long term (current) use of aspirin; Z79.899 Other long term (current) drug therapy
CPT/HCPCS: 36415; 80053; 82962; 83735; 84443; 84484; 85007; 85027; 85379; 93005; 99284-25

== ENCOUNTER 2019-07-23 06:32 | Emergency (ER) | payer OTHER, MEDICARE ==
[2019-07-23 06:40] VITALS: BP 178/89; PULSE 87
--- NOTE | 2019-07-23 07:11 | EDM.PDOC ---
ED HPI GENERAL MEDICAL PROBLEM - General Chief Complaint: Chest Pain Stated Complaint: CHEST PAIN Time Seen by Provider: 07/23/19 07:00 - History of Present Illness INITIAL COMMENTS - FREE TEXT/NARRATIVE: 68-year-old male presents to the emergency room with longstanding shortness of breath and a several week history of right chest pain The shortness of breath is been an ongoing issue for quite some time. 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 This chest pain seems to be related to some shoulder discomfort he has had for quite a long time. If he lays over on that side he has a hard time getting up in the morning. Only treated for hypertension and hyperlipidemia. Patient has not have a smoking history. He does have quite a bit of occupational exposure to chemicals as he worked in the [employer] industry for 45 years. Right Chest Pain Score (Numeric/FACES): 5 - Related Data Allergies Allergy/AdvReac Type Severity Reaction Status Date / Time No Known Allergies Allergy Verified 07/23/19 06:40 Home Meds: Home Meds Metoprolol Tartrate [Lopressor] 25 mg PO Q12HR 02/23/16 [History] Aspirin [Halfprin] 81 mg PO DAILY 10/31/16 [History] Omeprazole Magnesium [Prilosec Otc] 20 mg PO DAILY 01/06/18 [History] Magnesium Amino Acid Chelate [Magnesium] 100 mg PO DAILY 05/19/18 [History] Cannabidiol (Cbd) Extract [CBD Oil] 17 mg PO ASDIRECTED 07/23/19 [History] Fenofibrate 160 mg PO DAILY 07/23/19 [History] Past Medical History HEENT History: Reports: Impaired Vision Other HEENT History: wears eyeglasses Cardiovascular History: Reports: High Cholesterol, Hypertension Other Cardiovascular History: mitral valve replaced Respiratory History: Reports: Asthma Other Respiratory History: in childhood Gastrointestinal History: Reports: GERD, GI Bleed, PUD Other Gastrointestinal History: ulcertive colitis Neurological History: Reports: Migraines Endocrine/Metabolic History: Reports: Obesity/BMI 30+ Other Endocrine/Metabolic History: states has hypoglycemia - Infectious Disease History Infectious Disease History: Reports: Chicken Pox, Measles, Mumps, Rheumatic Fever, Other (See Below) Other Infectious Disease History: e-coli - Past Surgical History Cardiovascular Surgical History: Reports: Carotid Endarterectomy, Valve Replacement GI Surgical History: Reports: Cholecystectomy, Colonoscopy, Hernia, Inguinal Social & Family History - Family History Family Medical History: Noncontributory - Tobacco Use Smoking Status *Q: Never Smoker - Caffeine Use Caffeine Use: Reports: Coffee - Recreational Drug Use Recreational Drug Use: No - Living Situation & Occupation Living situation: Reports: , with Spouse Occupation: Retired ED ROS GENERAL - Review of Systems Review Of Systems: See Below Constitutional: Reports: No Symptoms HEENT: Reports: No Symptoms Respiratory: Reports: Shortness of Breath. Denies: Cough, Sputum, Hemoptysis Cardiovascular: Reports: Chest Pain (Right sided) Endocrine: Reports: No Symptoms GI/Abdominal: Reports: No Symptoms : Reports: No Symptoms Musculoskeletal: Reports: No Symptoms Skin: Reports: No Symptoms Neurological: Reports: No Symptoms ED EXAM, GENERAL - Physical Exam Exam: See Below Exam Limited By: No Limitations General Appearance: Alert, No Apparent Distress Head: Atraumatic, Normocephalic Neck: Normal Inspection, Supple, Non-Tender, Full Range of Motion. No: Lymphadenopathy (L), Lymphadenopathy (R) Respiratory/Chest: No Respiratory Distress, Lungs Clear, Normal Breath Sounds Cardiovascular: Regular Rate, Rhythm, No Edema, No Murmur GI/Abdominal: Normal Bowel Sounds, Soft, Non-Tender Back Exam: Normal Inspection. No: CVA Tenderness (L), CVA Tenderness (R) Neurological: Alert, Oriented, Normal Cognition Course - Vital Signs Last Recorded V/S: Last Vital Signs Temp 36.4 C 07/23/19 06:37 Pulse 87 07/23/19 06:37 Resp 16 07/23/19 06:37 BP 178/89 H 07/23/19 06:37 Pulse Ox 95 07/23/19 06:37 - Orders/Labs/Meds Orders: Active Orders 24 hr Category Date Time Status EKG Documentation Completion [RC] ASDIRECTED Care 07/23/19 06:44 Active Sodium Chloride 0.9% [Normal Saline] 100 ml Med 07/23/19 09:00 Active IV ASDIRECTED Sodium Chloride 0.9% [Saline Flush] Med 07/23/19 08:50 Active 10 ml FLUSH ONETIME PRN EKG 12 Lead [EK] Stat Ther 07/23/19 06:43 Ordered Medication Orders Sodium Chloride (Normal Saline) 100 mls @ 75 mls/hr IV ASDIRECTED BARBER Last Admin: 07/23/19 08:59 Dose: 75 mls/hr Sodium Chloride (Saline Flush) 10 ml FLUSH ONETIME PRN PRN Reason: IV FLUSH Last Admin: 07/23/19 08:59 Dose: 10 ml Labs: Laboratory Tests 07/23/19 07/23/19 07/23/19 Range/Units 06:44 06:44 06:44 WBC 7.49 (4.23-9.07) K/mm3 RBC 5.08 (4.63-6.08) M/mm3 Hgb 15.9 (13.7-17.5) gm/dl Hct 47.7 (40.1-51.0) % MCV 93.9 H D (79.0-92.2) fl MCH 31.3 (25.7-32.2) pg MCHC 33.3 (32.2-35.5) g/dl RDW Std Deviation 49.4 H (35.1-43.9) fL Plt Count 232 (163-337) K/mm3 MPV 9.6 (9.4-12.3) fl Neut % (Auto) 43.8 (34.0-67.9) % Lymph % (Auto) 39.7 (21.8-53.1) % [place] % (Auto) 8.9 (5.3-12.2) % Eos % (Auto) 6.4 (0.8-7.0) Baso % (Auto) 0.7 (0.1-1.2) % Neut # (Auto) 3.28 (1.78-5.38) K/mm3 Lymph # (Auto) 2.97 (1.32-3.57) K/mm3 [place] # (Auto) 0.67 (0.30-0.82) K/mm3 Eos # (Auto) 0.48 (0.04-0.54) K/mm3 Baso # (Auto) 0.05 (0.01-0.08) K/mm3 PT 10.2 (9.7-12.0) SECONDS INR 0.93 APTT (22-31) SECONDS Sodium 137 (136-145) mEq/L Potassium 4.3 (3.5-5.1) mEq/L Chloride 102 (98-107) mEq/L Carbon Dioxide 24 (21-32) mEq/L Anion Gap 15.3 H (5-15) BUN 14 (7-18) mg/dL Creatinine 1.1 (0.7-1.3) mg/dL Est Cr Clr Drug Dosing 66.06 mL/min Estimated GFR (MDRD) > 60 (>60) mL/min BUN/Creatinine Ratio 12.7 L (14-18) Glucose 160 H (80-115) mg/dL Calcium 9.2 (8.5-10.1) mg/dL Total Bilirubin 0.6 (0.2-1.0) mg/dL AST 23 (15-37) U/L ALT 52 (16-63) U/L Alkaline Phosphatase 78 (46-116) U/L Troponin I < 0.017 (0.00-0.056) ng/mL Total Protein 7.6 (6.4-8.2) g/dl Albumin 3.7 (3.4-5.0) g/dl Globulin 3.9 gm/dL Albumin/Globulin Ratio 1.0 (1-2) 07/23/19 Range/Units 06:44 WBC (4.23-9.07) K/mm3 RBC (4.63-6.08) M/mm3 Hgb (13.7-17.5) gm/dl Hct (40.1-51.0) % MCV (79.0-92.2) fl MCH (25.7-32.2) pg MCHC (32.2-35.5) g/dl RDW Std Deviation (35.1-43.9) fL Plt Count (163-337) K/mm3 MPV (9.4-12.3) fl Neut % (Auto) (34.0-67.9) % Lymph % (Auto) (21.8-53.1) % [place] % (Auto) (5.3-12.2) % Eos % (Auto) (0.8-7.0) Baso % (Auto) (0.1-1.2) % Neut # (Auto) (1.78-5.38) K/mm3 Lymph # (Auto) (1.32-3.57) K/mm3 [place] # (Auto) (0.30-0.82) K/mm3 Eos # (Auto) (0.04-0.54) K/mm3 Baso # (Auto) (0.01-0.08) K/mm3 PT (9.7-12.0) SECONDS INR APTT 28 (22-31) SECONDS Sodium (136-145) mEq/L Potassium (3.5-5.1) mEq/L Chloride (98-107) mEq/L Carbon Dioxide (21-32) mEq/L Anion Gap (5-15) BUN (7-18) mg/dL Creatinine (0.7-1.3) mg/dL Est Cr Clr Drug Dosing mL/min Estimated GFR (MDRD) (>60) mL/min BUN/Creatinine Ratio (14-18) Glucose (80-115) mg/dL Calcium (8.5-10.1) mg/dL Total Bilirubin (0.2-1.0) mg/dL AST (15-37) U/L ALT (16-63) U/L Alkaline Phosphatase (46-116) U/L Troponin I (0.00-0.056) ng/mL Total Protein (6.4-8.2) g/dl Albumin (3.4-5.0) g/dl Globulin gm/dL Albumin/Globulin Ratio (1-2) Meds: Medications Generic Name Dose Route Start Last Admin Trade Name Freq PRN Reason Stop Dose Admin Sodium Chloride 100 mls @ 75 mls/hr 07/23/19 09:00 07/23/19 08:59 Normal Saline IV 75 mls/hr ASDIRECTED BARBER Administration Sodium Chloride 10 ml 07/23/19 08:50 07/23/19 08:59 Saline Flush FLUSH 10 ml ONETIME PRN Administration IV FLUSH Discontinued Medications Generic Name Dose Route Start Last Admin Trade Name Freq PRN Reason Stop Dose Admin Iopamidol 100 ml 07/23/19 08:50 07/23/19 08:59 [id number] (76%) IVPUSH 07/23/19 08:51 100 ml ONETIME ONE Administration - Re-Assessments/Exams Free Text/Narrative Re-Assessment/Exam: 07/23/19 07:35 Chest x-ray shows a high riding diaphragm on the right cannot exclude glued a small infiltrate but there is overlying shadows from the scapula and this is right on top of the diaphragm. The elevated diaphragm is been present since before his valve surgery from reviewing several old chest x-rays. His EKG does not show any acute changes. Laboratory evaluation including a negative troponin is nonsuggestive. 07/23/19 09:46 CT angiogram was done which fortunately does not show us much except a little bit of atelectasis but no underlying infiltrate or other pathology seen. The patient has pain over his right chest when he reaches up. And I suspect a lot of his discomfort is from the anterior musculature that goes into the shoulders compensating for chronic shoulder problems Departure - Departure Time of Disposition: 09:48 Disposition: Home, Self-Care 01 Clinical Impression: Right-sided chest wall pain, Shortness of breath Referrals: Chyna Corona MD [Primary Care Provider] - Forms: ED Department Discharge Additional Instructions: Return to the emergency room with any questions problems or worsening symptoms. Follow-up with your regular doctor discuss further lung testing to see if they can do something to help with your chronic shortness of breath. Discussed following up with orthopedics to evaluate your right shoulder. Tylenol for discomfort do not exceed 4000 mg in a 24-hour period Sepsis Event Note - Evaluation Sepsis Screening Result: No Definite Risk - Focused Exam Vital Signs: Vital Signs Temp Pulse Resp BP Pulse Ox 07/23/19 06:37 36.4 C 87 16 178/89 H 95 Date Exam was Performed: 07/23/19 Time Exam was Performed: 09:46 - My Orders Last 24 Hours: My Active Orders 07/23/19 06:43 EKG 12 Lead [EK] Stat 07/23/19 06:44 EKG Documentation Completion [RC] ASDIRECTED 07/23/19 08:50 Sodium Chloride 0.9% [Saline Flush] 10 ml FLUSH ONETIME PRN 07/23/19 09:00 Sodium Chloride 0.9% [Normal Saline] 100 ml IV ASDIRECTED - Assessment/Plan Last 24 Hours: My Active Orders 07/23/19 06:43 EKG 12 Lead [EK] Stat 07/23/19 06:44 EKG Documentation Completion [RC] ASDIRECTED 07/23/19 08:50 Sodium Chloride 0.9% [Saline Flush] 10 ml FLUSH ONETIME PRN 07/23/19 09:00 Sodium Chloride 0.9% [Normal Saline] 100 ml IV ASDIRECTED
--- NOTE | 2019-07-23 07:32 | CR ---
Chest: Portable view of the chest was obtained. Comparison: Prior chest x-ray of 01/09/18. Elevated right hemidiaphragm is seen which is stable. Minimal atelectasis is noted adjacent of the right hemidiaphragm. Lungs otherwise are clear. Previous sternotomy is noted. Prosthetic heart valve is seen. Heart size does not appear enlarged. Impression: 1. Findings which are felt to be incidental as noted above. 2. Nothing acute is appreciated. Diagnostic code #2 This report was dictated in [place] Standard Time
[2019-07-23] MEDS ORDERED: Iopamidol 755 Mg/ML 100 ML Bottle IVPUSH ONE (08:50)
[2019-07-23] MEDS ORDERED: Sodium Chloride 0.9% 10 ML Syringe FLUSH PRN (08:50)
[2019-07-23] MEDS ORDERED: Sodium Chloride 0.9% 100 ML IV SCH (09:00)
--- NOTE | 2019-07-23 09:25 | CT ---
CT chest Technique: Multiple axial sections through the chest were obtained. Intravenous contrast was utilized. Study has been performed as a pulmonary angiogram protocol. Comparison: Prior CT chest of 01/08/18 Findings: Pulmonary arteries are well-opacified. No filling defects are seen to indicate pulmonary embolism. Previous sternotomy is noted. Visualized portions of the upper abdominal structures show no discrete abnormality. Right hemidiaphragm is elevated. Mild atelectasis is seen above the right hemidiaphragm. Lungs otherwise are clear with no acute parenchymal change. Bone window settings were reviewed which show scattered disc space narrowing and endplate spurring within the spine. Impression: 1. Chronic elevated right hemidiaphragm. Mild right basilar atelectasis. 2. No findings of pulmonary embolism. 3. Nothing acute is appreciated on CT study of the chest. Diagnostic code #2 This report was dictated in [place] Standard Time
== END 2019-07-23 10:04 | disposition home or self-care (01) ==
LOC: JD.ED 06:32
DX: R07.89 Other chest pain (principal); R06.02 Shortness of breath; E78.00 Pure hypercholesterolemia, unspecified; I10 Essential (primary) hypertension; K21.9 Gastro-esophageal reflux disease without esophagitis; E66.9 Obesity, unspecified; Z68.29 Body mass index [BMI] 29.0-29.9, adult; Z79.82 Long term (current) use of aspirin; Z79.899 Other long term (current) drug therapy
CPT/HCPCS: 36415; 71045; 71275; 80053; 84484; 85025; 85610; 85730; 93005; 96360; 99285; J7050; Q9967; 93010; 99283

== ENCOUNTER 2019-11-29 10:33 | Emergency (ER) | payer OTHER, MEDICARE ==
[2019-11-29] MEDS ORDERED: methylPREDNISolone Sodium Succinate 125 MG/2 ML SDV IVPUSH ONE (11:10)
[2019-11-29] MEDS ORDERED: Sodium Chloride 0.9% 500 ML IV ONE (11:10)
[2019-11-29] MEDS ORDERED: Metoclopramide 10 MG/2 ML SDV IVPUSH ONE (11:10)
[2019-11-29] MEDS ORDERED: Sodium Chloride 0.9% 10 ML Syringe FLUSH PRN (11:11)
--- NOTE | 2019-11-29 12:10 | EDM.PDOC ---
ED HPI GENERAL MEDICAL PROBLEM - General Chief Complaint: Neurological Problem Stated Complaint: [facility] Time Seen by Provider: 11/29/19 10:52 Source of Information: Reports: Patient, Family (spouse), RN Notes Reviewed - History of Present Illness INITIAL COMMENTS - FREE TEXT/NARRATIVE: 69 yr old male with acute onset of vertigo a short time ago, had been feeling fine prior to that. He has had nausea, vomiting, became weak light headed dizzy, diaphoretic. No chest pain. He [place] get short of breath at times but not worse than usual at this time. No recent cough, fever or chills. No headache, throat, sinus or ear discomfort. Treatments COLLAR TACKER: Reports: IV/IO, Other Medication(s) Other Treatments COLLAR TACKER: zofran 8mg - Related Data Allergies Allergy/AdvReac Type Severity Reaction Status Date / Time No Known Allergies Allergy Verified 11/29/19 10:56 Home Meds: Home Meds Aspirin [Halfprin] 81 mg PO DAILY 10/31/16 [History] Omeprazole Magnesium [Prilosec Otc] 20 mg PO DAILY 01/06/18 [History] Magnesium Amino Acid Chelate [Magnesium] 100 mg PO DAILY 05/19/18 [History] Cannabidiol (Cbd) Extract [CBD Oil] 17 mg PO ASDIRECTED 07/23/19 [History] Fenofibrate 160 mg PO DAILY 07/23/19 [History] Metoprolol Succinate 50 mg PO DAILY 11/29/19 [History] Past Medical History HEENT History: Reports: Impaired Vision Other HEENT History: wears eyeglasses Cardiovascular History: Reports: High Cholesterol, Hypertension Other Cardiovascular History: mitral valve replaced Respiratory History: Reports: Asthma Other Respiratory History: in childhood Gastrointestinal History: Reports: GERD, GI Bleed, PUD Other Gastrointestinal History: ulcertive colitis Neurological History: Reports: Migraines Endocrine/Metabolic History: Reports: Obesity/BMI 30+ Other Endocrine/Metabolic History: states has hypoglycemia - Infectious Disease History Infectious Disease History: Reports: Chicken Pox, Measles, Mumps, Rheumatic Fever, Other (See Below) Other Infectious Disease History: e-coli - Past Surgical History Cardiovascular Surgical History: Reports: Carotid Endarterectomy, Valve Replacement GI Surgical History: Reports: Cholecystectomy, Colonoscopy, Hernia, Inguinal Social & Family History - Family History Family Medical History: Noncontributory - Tobacco Use Smoking Status *Q: Never Smoker - Caffeine Use Caffeine Use: Reports: Coffee - Living Situation & Occupation Living situation: Reports: , with Spouse Occupation: Retired ED ROS GENERAL - Review of Systems Review Of Systems: See Below Constitutional: Denies: Fever, Chills HEENT: Reports: Vertigo. Denies: Ear Discharge, Ear Pain, Sinus Problem, Throat Pain Respiratory: Reports: Shortness of Breath. Denies: Cough Cardiovascular: Denies: Chest Pain GI/Abdominal: Reports: Nausea, Vomiting. Denies: Abdominal Pain Musculoskeletal: Denies: Arm Pain, Back Pain Skin: Reports: Diaphoresis Neurological: Denies: Numbness, Tingling ED EXAM, DIZZINESS - Physical Exam Exam: See Below General Appearance: Alert, Mild Distress Eye Exam: Bilateral Eye: Nystagmus, PERRL Throat/Mouth: Normal Inspection, Normal Oropharynx Head Exam: Atraumatic Vertigo: reproducible Neck: Supple Respiratory/Chest: No Respiratory Distress, Lungs Clear, Normal Breath Sounds Cardiovascular: Regular Rate, Rhythm Neurological: Alert, No Motor/Sensory Deficits Back Exam: No: CVA Tenderness (L), CVA Tenderness (R) Skin Exam: Warm, Dry, Normal Color EKG INTERPRETATION EKG Date: 11/29/19 Rhythm: NSR [place]: Normal P-Wave: Present QRS: Normal ST-T: Normal Course - Vital Signs Last Recorded V/S: Last Vital Signs Temp 97.8 F 11/29/19 10:37 Pulse 70 11/29/19 13:07 Resp 20 11/29/19 10:37 BP 150/80 H 11/29/19 13:07 Pulse Ox 98 11/29/19 13:07 - Orders/Labs/Meds Orders: Active Orders 24 hr Category Date Time Status EKG 12 Lead [EKG Documentation Completion] [RC] STAT Care 11/29/19 11:10 Active Peripheral IV Care [RC] . DIRECTED Care 11/29/19 11:12 Active Sodium Chloride 0.9% [Saline Flush] Med 11/29/19 11:11 Active 10 ml FLUSH ASDIRECTED PRN Peripheral IV Insertion Adult [OM.PC] Stat Oth 11/29/19 11:10 Ordered Medication Orders Sodium Chloride (Saline Flush) 10 ml FLUSH ASDIRECTED PRN PRN Reason: Keep Vein Open Last Admin: 11/29/19 11:30 Dose: 10 ml Documented by: MICHELLE Labs: Laboratory Tests 11/29/19 11/29/19 Range/Units 11:33 11:33 WBC 9.30 H (4.23-9.07) K/mm3 RBC 4.86 (4.63-6.08) M/mm3 Hgb 14.9 (13.7-17.5) gm/dl Hct 45.1 (40.1-51.0) % MCV 92.8 H (79.0-92.2) fl MCH 30.7 (25.7-32.2) pg MCHC 33.0 (32.2-35.5) g/dl RDW Std Deviation 47.2 H (35.1-43.9) fL Plt Count 216 (163-337) K/mm3 MPV 9.5 (9.4-12.3) fl Neut % (Auto) 66.6 (34.0-67.9) % Lymph % (Auto) 22.6 (21.8-53.1) % [place] % (Auto) 6.5 (5.3-12.2) % Eos % (Auto) 2.9 (0.8-7.0) Baso % (Auto) 1.0 (0.1-1.2) % Neut # (Auto) 6.20 H (1.78-5.38) K/mm3 Lymph # (Auto) 2.10 (1.32-3.57) K/mm3 [place] # (Auto) 0.60 (0.30-0.82) K/mm3 Eos # (Auto) 0.27 (0.04-0.54) K/mm3 Baso # (Auto) 0.09 H (0.01-0.08) K/mm3 Sodium 138 (136-145) mEq/L Potassium 4.1 (3.5-5.1) mEq/L Chloride 104 (98-107) mEq/L Carbon Dioxide 26 (21-32) mEq/L Anion Gap 12.1 (5-15) BUN 18 (7-18) mg/dL Creatinine 1.1 (0.7-1.3) mg/dL Est Cr Clr Drug Dosing 65.17 mL/min Estimated GFR (MDRD) > 60 (>60) mL/min BUN/Creatinine Ratio 16.4 (14-18) Glucose 158 H (80-115) mg/dL Calcium 8.9 (8.5-10.1) mg/dL Total Bilirubin 0.4 (0.2-1.0) mg/dL AST 29 (15-37) U/L ALT 53 (16-63) U/L Alkaline Phosphatase 68 (46-116) U/L Total Protein 7.2 (6.4-8.2) g/dl Albumin 3.6 (3.4-5.0) g/dl Globulin 3.6 gm/dL Albumin/Globulin Ratio 1.0 (1-2) Meds: Medications Generic Name Dose Route Start Last Admin Trade Name Freq PRN Reason Stop Dose Admin Sodium Chloride 10 ml 11/29/19 11:11 11/29/19 11:30 Saline Flush FLUSH 10 ml ASDIRECTED PRN Administration Keep Vein Open Discontinued Medications Generic Name Dose Route Start Last Admin Trade Name Freq PRN Reason Stop Dose Admin Diazepam 2 mg 11/29/19 11:13 11/29/19 11:20 Valium IVPUSH 11/29/19 11:14 2 mg ONETIME ONE Administration Sodium Chloride 500 mls @ 999 mls/hr 11/29/19 11:10 11/29/19 11:20 Normal Saline IV 11/29/19 11:40 999 mls/hr .BOLUS ONE Administration Meclizine HCl 12.5 mg 11/29/19 12:54 11/29/19 13:05 Antivert PO 11/29/19 12:55 12.5 mg ONETIME ONE Administration Methylprednisolone Sodium Succinate 125 mg 11/29/19 11:10 11/29/19 11:20 Solu-Medrol IVPUSH 11/29/19 11:11 125 mg ONETIME ONE Administration Metoclopramide HCl 5 mg 11/29/19 11:10 11/29/19 11:20 Reglan IVPUSH 11/29/19 11:11 5 mg ONETIME ONE Administration - Re-Assessments/Exams Free Text/Narrative Re-Assessment/Exam: 11/29/19 14:01 Feeling much better a short time ago after multiple IV meds. Vertigo is gone. Labs, EKG were good, discharge instr. as documented. Departure - Departure Time of Disposition: 12:55 Disposition: Home, Self-Care 01 Condition: Fair Clinical Impression: Vertigo Labyrinthitis Qualifiers: Laterality: unspecified laterality Qualified Code(s): H83.09 - Labyrinthitis, unspecified ear - Discharge Information Instructions: Vertigo, [id number] Referrals: Chyna Corona MD [Primary Care Provider] - Forms: ED Department Discharge Additional Instructions: rest, move slowly and carefully, antivert 12.5 mg twice daily for 3 days or until after symptoms have completely resolved. That is available OTC, you will need to ask your pharmacist for that medication. Drink plenty of water to m aintain hydration. Follow up clinic as needed, return to ED as needed if symptoms worsening in any way. Sepsis Event Note (ED) - Evaluation Sepsis Screening Result: No Definite Risk - Focused Exam Vital Signs: Vital Signs Temp Pulse Resp BP Pulse Ox 11/29/19 13:07 70 150/80 H 98 11/29/19 10:37 97.8 F 85 20 124/93 H - My Orders Last 24 Hours: My Active Orders 11/29/19 11:10 EKG 12 Lead [EKG Documentation Completion] [RC] STAT Peripheral IV Insertion Adult [OM.PC] Stat 11/29/19 11:11 Sodium Chloride 0.9% [Saline Flush] 10 ml FLUSH ASDIRECTED PRN 11/29/19 11:12 Peripheral IV Care [RC] . DIRECTED - Assessment/Plan Last 24 Hours: My Active Orders 11/29/19 11:10 EKG 12 Lead [EKG Documentation Completion] [RC] STAT Peripheral IV Insertion Adult [OM.PC] Stat 11/29/19 11:11 Sodium Chloride 0.9% [Saline Flush] 10 ml FLUSH ASDIRECTED PRN 11/29/19 11:12 Peripheral IV Care [RC] . DIRECTED
[2019-11-29] MEDS ORDERED: Meclizine 12.5 MG Tab PO ONE (12:54)
[2019-11-29 13:09] VITALS: BP 150/80; PULSE 70
--- NOTE | 2019-11-29 13:19 | CR ---
Chest: Portable view of the chest was obtained. Comparison: Prior chest x-ray of 07/23/19. Elevated right hemidiaphragm is seen which is stable from previous chest x-ray. Heart is slightly prominent. Lungs show no acute parenchymal change. Previous sternotomy and prosthetic heart valve are seen. Impression: 1. Findings as described above. 2. Nothing acute is appreciated. Diagnostic code #2 This report was dictated in MDT
== END 2019-11-29 13:10 | disposition home or self-care (01) ==
LOC: JD.ED 10:33
DX: H83.09 Labyrinthitis, unspecified ear (principal); E78.00 Pure hypercholesterolemia, unspecified; I10 Essential (primary) hypertension; J45.909 Unspecified asthma, uncomplicated; K21.9 Gastro-esophageal reflux disease without esophagitis; E66.9 Obesity, unspecified; Z68.34 Body mass index [BMI] 34.0-34.9, adult; Z79.82 Long term (current) use of aspirin; Z79.899 Other long term (current) drug therapy
CPT/HCPCS: 36415; 71045; 80053; 85025; 93005; 96361; 96374; 96375; 99284; A9270; J2765; J2930; J3360; J7030; 93010; 99283

== ENCOUNTER 2020-05-20 10:32 | Emergency (ER) | payer OTHER, MEDICARE ==
[2020-05-20] MEDS ORDERED: Metoclopramide 10 MG/2 ML SDV IVPUSH ONE (10:50)
[2020-05-20] MEDS: Metoclopramide 10 MG/2 ML SDV ONE ×2 (10:52→10:53)
[2020-05-20] MEDS ORDERED: LORazepam 2 MG/ML SDV IV ONE (10:55)
--- NOTE | 2020-05-20 10:58 | EDM.PDOC ---
ED HPI GENERAL MEDICAL PROBLEM - General Chief Complaint: General Stated Complaint: VOMITING AND DIZZY Time Seen by Provider: 05/20/20 10:45 Source of Information: Reports: Patient History Limitations: Reports: No Limitations - History of Present Illness INITIAL COMMENTS - FREE TEXT/NARRATIVE: 69-year-old male presents to the ED he states for the fifth time in this last year with acute onset of vertigo symptoms associate with nausea and vomiting. He states he was fine when he got up this morning and actually went out with buddies for coffee. Shortly after this he developed acute onset of vertigo symptoms feeling like the world was spinning around him. Associated difficulty focusing his vision. Then development of nausea vomiting x2 of bilious material and coffee that he drank this morning. Denies headache. Feels somewhat better now since he is vomited. Patient denies any recent fall or head injury. He has a history of bilateral carotid artery artery endarterectomies without any TIA or stroke symptoms prior. He denies any tinnitus or loss of hearing. No facial muscle weakness or slurred speech no trouble swallowing. Onset: Today, Sudden Onset Date: 05/20/20 Onset Time: 09:30 Duration: Minutes:, Constant, Getting Worse Location: Reports: Other (Acute onset of vertigo with nausea and vomiting) Quality: Reports: Other Severity: Moderate (He was onset of vertigo with nausea and vomiting) Improves with: Reports: Other (Willsey is a bit better since vomiting.) Worsens with: Reports: Movement Context: Reports: Other. Denies: Activity (Movement of his head or neck will usually precipitate vertigo.), Exercise, Lifting, Sick Contact, Trauma Associated Symptoms: Reports: Loss of Appetite, Nausea/Vomiting. Denies: Confusion (Continuous occurrence within the last hour and a half.), Chest Pain, Cough, cough w sputum, Diaphoresis, Fever/Chills, Headaches, Malaise, Rash, Seizure (To recent drink coffee and bilious material.), Shortness of Breath, Syncope, Weakness Treatments ICU SPECIALIST: Reports: Other (see below) - Related Data Allergies Allergy/AdvReac Type Severity Reaction Status Date / Time No Known Allergies Allergy Verified 05/20/20 10:55 Home Meds: Home Meds Aspirin [Halfprin] 81 mg PO DAILY 10/31/16 [History] Omeprazole Magnesium [Prilosec Otc] 20 mg PO DAILY 01/06/18 [History] Magnesium Amino Acid Chelate [Magnesium] 100 mg PO DAILY 05/19/18 [History] Cannabidiol (Cbd) Extract [CBD Oil] 17 mg PO ASDIRECTED 07/23/19 [History] Fenofibrate 160 mg PO DAILY 07/23/19 [History] Metoprolol Succinate 50 mg PO DAILY 11/29/19 [History] Metoclopramide HCl [Reglan] 10 mg PO Q8H #21 tablet 05/20/20 [Rx] Past Medical History HEENT History: Reports: Impaired Vision Other HEENT History: wears eyeglasses Cardiovascular History: Reports: High Cholesterol, Hypertension Other Cardiovascular History: mitral valve replaced Respiratory History: Reports: Asthma Other Respiratory History: in childhood Gastrointestinal History: Reports: GERD, GI Bleed, PUD Other Gastrointestinal History: ulcertive colitis Neurological History: Reports: Migraines, Vertigo (Recurrent bouts of vertigo he reports this is the fifth episode this year. He denies any) Endocrine/Metabolic History: Reports: Obesity/BMI 30+ Other Endocrine/Metabolic History: states has hypoglycemia - Infectious Disease History Infectious Disease History: Reports: Chicken Pox, Measles, Mumps, Rheumatic Fever, Other (See Below) Other Infectious Disease History: e-coli - Past Surgical History Cardiovascular Surgical History: Reports: Carotid Endarterectomy, Valve Replacement GI Surgical History: Reports: Cholecystectomy, Colonoscopy, Hernia, Inguinal Social & Family History - Family History Family Medical History: No Pertinent Family History - Caffeine Use Caffeine Use: Reports: Coffee - Living Situation & Occupation Living situation: Reports: , with Spouse Occupation: Retired ED ROS GENERAL - Review of Systems Review Of Systems: See Below Constitutional: Reports: Decreased Appetite. Denies: Fever, Chills, Malaise, Weakness, Fatigue, Weight Loss HEENT: Reports: Glasses, Vertigo (Problems with vertigo over this last year. In between episodes he is back to normal.) Respiratory: Reports: No Symptoms Cardiovascular: Reports: Blood Pressure Problem, Other (Devious open heart surgery with replacement of his mitral valve. This was done 4 years ago.) Endocrine: Reports: Fatigue GI/Abdominal: Reports: No Symptoms : Reports: Frequency, Other (Known BPH. 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 Denies: Confusion, Headache (Acute onset of vertigo today. This is the fifth bout this year.), Numbness, Syncope, Tingling, Weakness Psychiatric: Reports: No Symptoms ( He could not drive himself to the hospital.) Hematologic/Lymphatic: Reports: No Symptoms Immunologic: Reports: No Symptoms ED EXAM, GENERAL - Physical Exam Exam: See Below Exam Limited By: No Limitations General Appearance: Alert, WD/WN, Mild Distress, Other (Patient is rather grayish in color. Just finished vomiting. Temperature is 36.1 with a heart rate of 65. Respiratory was 18 with O2 sats of 95% room air BP 1 3392.) Eye Exam: Left Eye: Nystagmus (Mild sustained nystagmus appreciated on left lateral gaze.), Bilateral Eye: Normal Inspection, PERRL Ear Exam: Bilateral Ear: TM normal Throat/Mouth: Normal Inspection, Normal Oropharynx Head: Atraumatic Neck: Normal Inspection, Limited Range of Motion, Tender Lateral (No worse than normal.), Other (Evidence of bilateral carotid artery surgery.) Respiratory/Chest: No Respiratory Distress, No Accessory Muscle Use, Decreased Breath Sounds (Decreased breath sounds to the posterior lung robles bilaterally. History of COPD.). No: Respiratory Distress Cardiovascular: Regular Rate, Rhythm, No Edema, No Gallop, No Murmur, No Rub, Other (Evidence of open heart surgery with midline sternotomy well-healed. He reports that this was done for a mitral valve replacement 4 years ago.). No: Normal Peripheral Pulses Peripheral Pulses: 1+: Posterior Tibial (L), Posterior Tibial (R), Dorsalis Pedis (L), Dorsalis Pedis (R), 2+: Carotid (L), Carotid (R) GI/Abdominal: Normal Bowel Sounds, Soft, Non-Tender, No Organomegaly, No Abnormal Bruit, No Mass, Pelvis Stable, Other Back Exam: Normal Inspection (Moderate obesity. This limits ability to palpate solid organs.), Full Range of Motion. No: CVA Tenderness (L), CVA Tenderness (R) Extremities: Normal Inspection, Limited Range of Motion Neurological: Alert, Oriented (Has evidence of osteoarthritic changes both knees. Limited rotation both hips.), CN II-XII Intact, Normal Cognition, No Motor/Sensory Deficits. No: Normal Gait Psychiatric: Normal Affect, Normal Mood Skin Exam: Cool, Diaphoretic (Mildly diaphoretic.) Course - Vital Signs Last Recorded V/S: Last Vital Signs Temp 36.1 C 05/20/20 10:42 Pulse 65 05/20/20 10:42 Resp 18 05/20/20 10:42 BP 133/92 H 05/20/20 10:42 Pulse Ox 95 05/20/20 10:42 - Orders/Labs/Meds Orders: Active Orders 24 hr Category Date Time Status Dextrose 5%-0.9% NaCl [Dextrose 5%-Normal Saline] 1,000 Med 05/20/20 11:00 Active ml IV ASDIRECTED Medication Orders Dextrose/Sodium Chloride (Dextrose 5%-Normal Saline) 1,000 mls @ 150 mls/hr IV ASDIRECTED BARBER Last Admin: 05/20/20 11:06 Dose: 150 mls/hr Documented by: ROSEANNA Labs: Laboratory Tests 05/20/20 05/20/20 Range/Units 10:50 10:50 WBC 11.00 H (4.23-9.07) K/mm3 RBC 5.28 (4.63-6.08) M/mm3 Hgb 16.1 (13.7-17.5) gm/dl Hct 47.8 (40.1-51.0) % MCV 90.5 (79.0-92.2) fl MCH 30.5 (25.7-32.2) pg MCHC 33.7 (32.2-35.5) g/dl RDW Std Deviation 47.2 H (35.1-43.9) fL Plt Count 260 (163-337) K/mm3 MPV 9.5 (9.4-12.3) fl Neut % (Auto) 39.2 (34.0-67.9) % Lymph % (Auto) 48.5 (21.8-53.1) % Zavala % (Auto) 6.4 (5.3-12.2) % Eos % (Auto) 4.5 (0.8-7.0) Baso % (Auto) 0.7 (0.1-1.2) % Neut # (Auto) 4.31 (1.78-5.38) K/mm3 Lymph # (Auto) 5.34 H (1.32-3.57) K/mm3 Zavala # (Auto) 0.70 (0.30-0.82) K/mm3 Eos # (Auto) 0.49 (0.04-0.54) K/mm3 Baso # (Auto) 0.08 (0.01-0.08) K/mm3 Sodium 137 (136-145) mEq/L Potassium 4.0 (3.5-5.1) mEq/L Chloride 102 (98-107) mEq/L Carbon Dioxide 24 (21-32) mEq/L Anion Gap 15.0 (5-15) BUN 18 (7-18) mg/dL Creatinine 1.1 (0.7-1.3) mg/dL Est Cr Clr Drug Dosing 63.05 mL/min Estimated GFR (MDRD) > 60 (>60) mL/min BUN/Creatinine Ratio 16.4 (14-18) Glucose 135 H (80-115) mg/dL Calcium 9.2 (8.5-10.1) mg/dL Magnesium 2.1 (1.8-2.4) mg/dl Total Bilirubin 0.6 (0.2-1.0) mg/dL AST 33 (15-37) U/L ALT 64 H (16-63) U/L Alkaline Phosphatase 77 (46-116) U/L C-Reactive Protein 0.6 (<1.0) mg/dL Total Protein 7.6 (6.4-8.2) g/dl Albumin 3.8 (3.4-5.0) g/dl Globulin 3.8 gm/dL Albumin/Globulin Ratio 1.0 (1-2) TSH 3rd Generation 2.628 (0.358-3.74) uIU/mL Meds: Medications Generic Name Dose Route Start Last Admin Trade Name Freq PRN Reason Stop Dose Admin Dextrose/Sodium Chloride 1,000 mls @ 150 mls/hr 05/20/20 11:00 05/20/20 11:06 Dextrose 5%-Normal Saline IV 150 mls/hr ASDIRECTED BARBER Administration Discontinued Medications Generic Name Dose Route Start Last Admin Trade Name Freq PRN Reason Stop Dose Admin Lorazepam 0.5 mg 05/20/20 10:55 05/20/20 11:04 Ativan IV 05/20/20 10:56 0.5 mg ONETIME ONE Administration Metoclopramide HCl Confirm 05/20/20 10:48 05/20/20 10:53 Reglan Administered 05/20/20 10:49 Not Given Dose 10 mg .ROUTE .STK-MED ONE Metoclopramide HCl 10 mg 05/20/20 10:50 05/20/20 10:51 Reglan IVPUSH 05/20/20 10:51 10 mg ONETIME ONE Administration - Radiology Interpretation Free Text/Narrative:: 69-year-old male presents to the ED with acute onset of vertigo at home this morning. He was up and about already this morning and out for coffee with no problems. Upon getting home this morning he developed sudden onset of severe vertigo and had to hang onto the cupboards at home to walk. Then started having nausea and vomiting. Symptoms started about 0930 hrs. He reports this would be his fifth bout of sudden onset of vertigo symptoms this last year. Clinically no associated loss of hearing or constant tinnitus to suggest Mnire's disease. No recent changes to his medications. Patient has had bilateral carotid endarterectomies without TIA or CVA prior to this. Has had open heart surgery with repair of his mitral valve in 2016. Bioprosthetic valve is not currently on anticoagulant. Exam reveals very minimal sustained nystagmus on left lateral gaze. Patient is reluctant to live down and feels better sitting up. Plan IV D5 normal saline at 150 mils per hour. Routine labs will be performed. Treatment will be Reglan 10 mg IV and Ativan 0.5 mg IV. Will reassess in about an hour and a quarter. - Re-Assessments/Exams Free Text/Narrative Re-Assessment/Exam: 05/20/20 11:42 White blood cell count is mildly elevated at 11.0. Differential shows 40% neutrophils. Hemoglobin is 16.1 with hematocrit of 47.8. Platelet count normal 260,000. Sodium is 137 with a potassium of 4.0. Chloride 102 with a bicarb of 24. Anion gap is 15.0. BUN is 18 with a creatinine of 1.1 and a GFR greater than 60. Glucose is 135 mildly elevated. Calcium is 9.2. Magnesium 2.1. Bilirubin is 0.6 AST is 33 he does have an elevated ALT of 64. Patient should be checked for hepatitis C at some point in the future. Alkaline phosphatase is 77. C-reactive protein 0.6. Total protein 7.6 with an albumin fraction of 3.8. TSH is normal at 2.62. 05/20/20 12:29 patient did very well on ambulating in the hallway outside of his room with no further vertigo symptoms or ataxia. He will therefore be discharged home on Reglan 10 mg every 8 hours until vertigo symptoms go away. Given 21 tablets at this time in the hopes that he will have tablets available next time he develops onset of vertigo and may try them at home before having to come to the ED. Follow-up with personal care physician if not markedly improved in 5 days time. Departure - Departure Time of Disposition: 12:22 Disposition: Home, Self-Care 01 Condition: Fair Clinical Impression: BPPV (benign paroxysmal positional vertigo) Qualifiers: Laterality: left Qualified Code(s): H81.12 - Benign paroxysmal vertigo, left ear - Discharge Information *PRESCRIPTION DRUG MONITORING PROGRAM REVIEWED*: Not Applicable *COPY OF PRESCRIPTION DRUG MONITORING REPORT IN PATIENT JUAN: Not Applicable Prescriptions: Metoclopramide HCl [Reglan] 10 mg PO Q8H #21 tablet Instructions: Benign Positional Vertigo Referrals: Chyna Corona MD [Primary Care Provider] - Forms: ED Department Discharge Additional Instructions: Evaluation in the emergency room today in regards to acute onset of vertigo associated with development of nausea and vomiting. As you indicated this is your fifth attack of this within the last year. Lab testing was completely normal. Neuro exam suggest that it is the left labyrinth that is the culprit at this point time causing feeling of being off balance and the world spinning with movement of head or neck. You were treated in the emergency room with intravenous Reglan 10 mg and Ativan 0.5 mg to bring the vertigo under control and it worked fairly well as you could walk normally an hour and a quarter after medication had been given. Suggest continued use of Reglan 10 mg tablet every 8 hours and the next tablet would be due about 7:00 tonight. And then again at 2 in the morning if you get up to void etc. Use the medication every 8 hours until the vertigo symptoms go away which can sometimes happen within a day or sometimes takes up to 5 days to go away. 85% of patients are better within 5 days. If symptoms persist past 5 days then you need to be seen again. Suggest limited driving until symptoms are gone. No climbing up on a chair stool or ladder until symptoms are gone of course. Follow-up with personal care physician if any further problems occur or return to the ED. I have given you extra tablets of Reglan to have on hand to start immediately if you develop symptoms in the future to see if it would bring it under control at home without having to come to the ED. Sepsis Event Note (ED) - Evaluation Sepsis Screening Result: No Definite Risk - Focused Exam Vital Signs: Vital Signs Temp Pulse Resp BP Pulse Ox 05/20/20 10:42 36.1 C 65 18 133/92 H 95 - My Orders Last 24 Hours: My Active Orders 05/20/20 11:00 Dextrose 5%-0.9% NaCl [Dextrose 5%-Normal Saline] 1,000 ml IV ASDIRECTED - Assessment/Plan Last 24 Hours: My Active Orders 05/20/20 11:00 Dextrose 5%-0.9% NaCl [Dextrose 5%-Normal Saline] 1,000 ml IV ASDIRECTED
[2020-05-20] MEDS ORDERED: Dextrose 5%-0.9% NaCl 1,000 ML IV SCH (11:00)
[2020-05-20 11:16] VITALS: BP 133/92; PULSE 65
== END 2020-05-20 12:40 | disposition home or self-care (01) ==
LOC: JD.ED 10:32
DX: H81.12 Benign paroxysmal vertigo, left ear (principal); R61 Generalized hyperhidrosis; I10 Essential (primary) hypertension; J45.909 Unspecified asthma, uncomplicated; K21.9 Gastro-esophageal reflux disease without esophagitis; M19.90 Unspecified osteoarthritis, unspecified site; E66.9 Obesity, unspecified; Z68.35 Body mass index [BMI] 35.0-35.9, adult; Z79.82 Long term (current) use of aspirin; Z79.899 Other long term (current) drug therapy
CPT/HCPCS: 36415; 80053; 83735; 84443; 85025; 86140; 96374; 96375; 99284; J2060; J2765; J7042

== ENCOUNTER 2022-01-03 19:19 | Emergency (ER) | payer OTHER, MEDICARE ==
[2022-01-03 19:39] VITALS: BP 114/60; PULSE 97
[2022-01-03] MEDS ORDERED: Metoclopramide 10 MG/2 ML SDV IVPUSH ONE (19:46)
[2022-01-03] MEDS ORDERED: diphenhydrAMINE 50 MG/ML SDV IVPUSH ONE (19:46)
[2022-01-03] MEDS ORDERED: Ketorolac 30 MG/ML SDV IVPUSH ONE (19:47)
[2022-01-03] MEDS ORDERED: Sodium Chloride 0.9% 10 ML Syringe FLUSH PRN (19:47)
[2022-01-03] MEDS ORDERED: Sodium Chloride 0.9% 1,000 ML IV SCH (20:00)
[2022-01-03] MEDS ORDERED: HYDROmorphone 1 MG/ML Syringe IVPUSH ONE (20:44)
== END 2022-01-03 21:37 | disposition home or self-care (01) ==
LOC: JD.ED 19:19
DX: G43.909 Migraine, unspecified, not intractable, without status migrainosus (principal); I10 Essential (primary) hypertension; Z79.899 Other long term (current) drug therapy; Z90.49 Acquired absence of other specified parts of digestive tract
CPT/HCPCS: 96361; 96374; 96375; 99283; J1170; J1200; J1885; J2765; J3490; J7030; 99282

== ENCOUNTER 2022-04-24 07:47 | Emergency (ER) | payer OTHER, MEDICARE ==
[2022-04-24 07:55] VITALS: BP 141/78; PULSE 66
[2022-04-24] MEDS ORDERED: Sodium Chloride 0.9% 10 ML Syringe FLUSH PRN (08:06)
[2022-04-24] MEDS ORDERED: Ondansetron 4 MG/2 ML SDV IVPUSH ONE (08:06)
[2022-04-24] MEDS ORDERED: Meclizine 12.5 MG Tab PO ONE (08:07)
[2022-04-24] MEDS ORDERED: Sodium Chloride 0.9% 1,000 ML IV SCH (08:15)
== END 2022-04-24 10:07 | disposition home or self-care (01) ==
LOC: JD.ED 07:47
DX: R42 Dizziness and giddiness (principal); I10 Essential (primary) hypertension; E78.00 Pure hypercholesterolemia, unspecified; J45.909 Unspecified asthma, uncomplicated; K21.9 Gastro-esophageal reflux disease without esophagitis; E66.9 Obesity, unspecified; Z68.33 Body mass index [BMI] 33.0-33.9, adult; Z79.82 Long term (current) use of aspirin; Z79.899 Other long term (current) drug therapy
CPT/HCPCS: 36415; 70450; 80053; 83690; 84484; 85025; 93005; 96361; 96374; 99284; A9270; J2405; J3490; J7030

== ENCOUNTER 2022-11-21 10:09 | Emergency (ER) | payer BC, MEDICARE ==
[2022-11-21] MEDS ORDERED: Sodium Chloride 0.9% 10 ML Syringe FLUSH PRN (10:24)
[2022-11-21 10:34] LABS: BASOPHILS ABSOLUTE AUTO 0.07 K/mm3 (0.01-0.08); EOSINOPHILS ABSOLUTE AUTO 0.39 K/mm3 (0.04-0.54); EOSINOPHILS PERCENT AUTO 5.4 (0.8-7.0); HEMATOCRIT 46.6 % (40.1-51.0); HEMOGLOBIN 15.7 gm/dl (13.7-17.5); IMMATURE GRAN ABSOLUTE AUTO 0.02 K/mm3 (0.00-0.10); IMMATURE GRAN PERCENT AUTO 0.3 % (<=1.0); LYMPHOCYTES ABSOLUTE AUTO 2.94 K/mm3 (1.32-3.57); LYMPHOCYTES PERCENT AUTO 40.6 % (21.8-53.1); MEAN CORPUSCULAR HEMOGLOBIN 30.3 pg (25.7-32.2); MEAN CORPUSCULAR HGB CONC 33.7 g/dl (32.2-35.5); MEAN PLATELET VOLUME 9.6 fl (9.4-12.3); MONOCYTES ABSOLUTE AUTO 0.54 K/mm3 (0.30-0.82); MONOCYTES PERCENT AUTO 7.4 % (5.3-12.2); NEUTROPHILS ABSOLUTE AUTO 3.29 K/mm3 (1.78-5.38); NEUTROPHILS PERCENT AUTO 45.3 % (34.0-67.9); PLATELET COUNT,PLT 209 K/mm3 (163-337); RED BLOOD CELL COUNT 5.18 M/mm3 (4.63-6.08); WHITE BLOOD CELL COUNT,WBC 7.25 K/mm3 (4.23-9.07)
[2022-11-21 10:51] LABS: INR 1.01; PROTHROMBIN TIME 10.8 SECONDS (9.7-12.0)
[2022-11-21 10:58] LABS: ALANINE AMINOTRANSFERASE,ALT 48 U/L (16-63); ALBUMIN 3.7 g/dl (3.4-5.0); ALKALINE PHOSPHATASE 65 U/L (46-116); ANION GAP 13.9 (5-15); ASPARTATE AMNIOTRANSFERASE,AST 23 U/L (15-37); BILIRUBIN TOTAL 0.8 mg/dL (0.2-1.0); BLOOD UREA NITROGEN,BUN 15 mg/dL (7-18); BUN/CREATININE RATIO 13.6 (14-18); C-REACTIVE PROTEIN < 0.2 mg/dL (<1.0); CALCIUM 9.1 mg/dL (8.5-10.1); CARBON DIOXIDE,CO2 24 mEq/L (21-32); CHLORIDE,CL 104 mEq/L (98-107); CREATINE KINASE,CK 88 U/L (39-308); CREATININE 1.1 mg/dL (0.7-1.3); EST CRCL DRUG DOSING (CG) 60.45 mL/min; ESTIMATED GFR 72 mL/min (>60); GLUCOSE RANDOM 151 mg/dL (70-99); MAGNESIUM 2.1 mg/dL (1.8-2.4); POTASSIUM,K 3.9 mEq/L (3.5-5.1); PROTEIN TOTAL,TP 7.6 g/dl (6.4-8.2); SODIUM,NA 138 mEq/L (136-145); TROPONIN I HIGH SENSITIVITY 8 pg/mL (<=76); TSH 1.915 uIU/mL (0.358-3.74)
[2022-11-21] MEDS ORDERED: Ketorolac 15 MG/ML SDV IVPUSH ONE (13:17)
[2022-11-21 14:37] LABS: APPEARANCE,URINE CLEAR (Clear); BILIRUBIN,URINE NEGATIVE (Negative); COLOR,URINE YELLOW (Yellow); GLUCOSE,URINE NEGATIVE (Negative); KETONES,URINE NEGATIVE (Negative); LEUKOCYTE ESTERASE,URINE NEGATIVE (Negative); NITRITE,URINE NEGATIVE (Negative); OCCULT BLOOD,URINE NEGATIVE (Negative); PROTEIN,URINE TRACE (Negative)
[2022-11-21 14:46] LABS: BARBITURATE SCREEN,URINE NEGATIVE (CUTOFF=200); BENZODIAZEPINES SCREEN,URINE NEGATIVE (CUTOFF=150); BUPRENORPHINE SCREEN,URINE NEGATIVE (CUTOFF=10); METHADONE SCREEN, URINE NEGATIVE (CUT0FF=200); METHAMPHETAMINES SCREEN, URINE NEGATIVE (CUTOFF=500); OXYCODONE SCREEN,URINE NEGATIVE (CUT0FF=100); PROPOXYPHENE SCREEN,URINE NEGATIVE (CUTOFF=300); THC SCREEN,URINE 20 NG/ML NEGATIVE (CUTOFF=50)
[2022-11-21 14:47] LABS: AMPHETAMINES SCREEN, URINE NEGATIVE (CUTOFF=500)
[2022-11-21 15:00] LABS: EPITHELIAL CELLS,URINE NOT SEEN /hpf (0-5); RBC,URINE NOT SEEN /hpf (0-5); WBC,URINE 0-5 /hpf (0-5)
[2022-11-21 15:01] LABS: BACTERIA,URINE FEW /hpf (FEW); MUCUS,URINE NOT SEEN /hpf (FEW)
[2022-11-21 18:09] VITALS: BP 108/81; PULSE 61
== END 2022-11-21 15:25 ==
LOC: JD.ED 10:09
DX: G40.209 Localization-related (focal) (partial) symptomatic epilepsy and epileptic syndromes with complex partial seizures, not intractable, without status epilepticus (principal); I10 Essential (primary) hypertension; J45.909 Unspecified asthma, uncomplicated; K21.9 Gastro-esophageal reflux disease without esophagitis; E66.9 Obesity, unspecified; Z68.38 Body mass index [BMI] 38.0-38.9, adult; Z79.82 Long term (current) use of aspirin; Z79.899 Other long term (current) drug therapy
CPT/HCPCS: 36415; 70450; 71045; 80053; 80306; 80307; 81001; 82140; 82550; 82947; 83605; 83735; 83880; 84443; 84484; 85025; 85610; 85652; 85730; 86140; 93005; 96374; 99285; J1885; 93010; 99284

== ENCOUNTER 2024-03-25 08:04 | Inpatient (IN) | payer BC, MEDICARE ==
[2024-03-25] MEDS: Ondansetron 4 MG/2 ML SDV IVPUSH ONE (08:44)
[2024-03-25] MEDS: HYDROmorphone 0.5 MG/0.5 ML Syringe IVPUSH ONE (08:44)
[2024-03-25] MEDS: Sodium Chloride 0.9% 10 ML Syringe FLUSH PRN (08:44)
[2024-03-25] MEDS: Sodium Chloride 0.9% 1,000 ML IV ONE (08:59)
[2024-03-25 09:15] LABS: BASOPHILS ABSOLUTE AUTO 0.1 K/mm3 (0.0-0.2); BASOPHILS PERCENT AUTO 0.8 % (0.0-1.0); EOSINOPHILS ABSOLUTE AUTO 0.4 K/mm3 (0.0-0.4); EOSINOPHILS PERCENT AUTO 4.1 % (0.0-6.0); HEMATOCRIT 48.7 % (42.0-52.0); HEMOGLOBIN 16.7 gm/dl (14.0-18.0); IMMATURE GRAN ABSOLUTE AUTO 0.02 K/mm3 (0.00-0.05); IMMATURE GRAN PERCENT AUTO 0.2 % (0.0-0.4); LYMPHOCYTES ABSOLUTE AUTO 2.3 K/mm3 (1.0-4.8); LYMPHOCYTES PERCENT AUTO 27.4 % (24.0-44.0); MEAN CORPUSCULAR HEMOGLOBIN 31.1 pg (28.0-32.0); MEAN CORPUSCULAR HGB CONC 34.3 g/dl (32.0-36.0); MEAN CORPUSCULAR VOLUME 90.7 fl (83.0-99.0); MEAN PLATELET VOLUME 9.5 fl (9.4-12.4); MONOCYTES ABSOLUTE AUTO 0.5 K/mm3 (0.0-0.8); MONOCYTES PERCENT AUTO 5.8 % (0.0-8.0); NEUTROPHILS ABSOLUTE AUTO 5.2 K/mm3 (1.8-7.7); NEUTROPHILS PERCENT AUTO 61.7 % (41.0-71.0); PLATELET COUNT,PLT 231 K/mm3 (150-400); RED BLOOD CELL COUNT 5.37 M/mm3 (4.52-5.90); WHITE BLOOD CELL COUNT,WBC 8.46 K/mm3 (3.9-11.3)
[2024-03-25 09:31] LABS: A/G RATIO 1.1 (1-2); ANION GAP 16.1 (5-15); BUN/CREATININE RATIO 11.8 (14-18); CALCIUM 9.8 mg/dL (8.5-10.1); CREATININE 1.1 mg/dL (0.7-1.3); EST CRCL DRUG DOSING (CG) 59.59 mL/min; POTASSIUM,K 4.1 mEq/L (3.5-5.1); PROTEIN TOTAL,TP 7.8 g/dl (6.4-8.2)
[2024-03-25] MEDS: Iopamidol 612 MG/ML 100 ML Bottle IVPUSH ONE (09:51)
[2024-03-25] MEDS: Metoclopramide 10 MG/2 ML SDV IVPUSH ONE (10:50)
[2024-03-25] MEDS: Meclizine 25 MG Tab PO ONE (11:08)
[2024-03-25] MEDS: Benzocaine 20% Topical Spray UD MUCMEM ONE (12:41)
[2024-03-25 12:44] LABS: APPEARANCE,URINE CLEAR (Clear); BILIRUBIN,URINE NEGATIVE (Negative); COLOR,URINE YELLOW (Yellow); GLUCOSE,URINE NEGATIVE (Negative); KETONES,URINE NEGATIVE (Negative); LEUKOCYTE ESTERASE,URINE NEGATIVE (Negative); NITRITE,URINE NEGATIVE (Negative); OCCULT BLOOD,URINE NEGATIVE (Negative); PH,URINE 6.5 (5.0-8.0); PROTEIN,URINE NEGATIVE (Negative)
[2024-03-25 13:02] LABS: BACTERIA,URINE NOT SEEN /hpf (FEW); MUCUS,URINE NOT SEEN /hpf (FEW); RBC,URINE NOT SEEN /hpf (0-5); SQUAMOUS EPITHELIAL CELLS,UR 0-5 /hpf (0-5); WBC,URINE NOT SEEN /hpf (0-5)
[2024-03-25] MEDS: LORazepam 2 MG/ML SDV IVPUSH ONE (13:52)
[2024-03-25] MEDS: Dextrose 5%-0.45% NaCl 1,000 ML IV SCH (17:35)
[2024-03-25] MEDS: Metoprolol Succinate 25 MG Tab.ER PO SCH (21:14)
[2024-03-26] MEDS: Ketorolac 30 MG/ML SDV IVPUSH PRN (02:12)
[2024-03-26] MEDS: Rosuvastatin 10 MG Tab PO SCH (08:16)
[2024-03-26] MEDS: Aspirin 81 MG Tab.EC PO SCH (08:16)
[2024-03-26] MEDS: Enoxaparin 40 MG/0.4 ML Syringe SUBCUT SCH (08:19)
[2024-03-26] MEDS: Lisinopril 10 MG Tab PO SCH (08:20)
[2024-03-26] MEDS ORDERED: Sodium Chloride 0.65% Nasal Spray 45 ML Bottle NAS PRN (08:30)
[2024-03-26] MEDS: Fluticasone NASAL Spray 16 GM Bottle NASBOTH SCH (08:34)
[2024-03-26] MEDS: Benzocaine 20% Topical Spray UD MUCMEM PRN (08:43)
[2024-03-26] MEDS ORDERED: FENOFIBRATE 160 MG PO SCH (09:00)
[2024-03-26] MEDS ORDERED: LORazepam 2 MG/ML SDV IVPUSH PRN (09:51)
[2024-03-26 10:21] LABS: BASOPHILS ABSOLUTE AUTO 0.1 K/mm3 (0.0-0.2); BASOPHILS PERCENT AUTO 0.9 % (0.0-1.0); EOSINOPHILS ABSOLUTE AUTO 0.4 K/mm3 (0.0-0.4); EOSINOPHILS PERCENT AUTO 5.7 % (0.0-6.0); HEMATOCRIT 43.2 % (42.0-52.0); IMMATURE GRAN ABSOLUTE AUTO 0.01 K/mm3 (0.00-0.05); IMMATURE GRAN PERCENT AUTO 0.2 % (0.0-0.4); LYMPHOCYTES ABSOLUTE AUTO 2.5 K/mm3 (1.0-4.8); LYMPHOCYTES PERCENT AUTO 36.8 % (24.0-44.0); MEAN CORPUSCULAR HEMOGLOBIN 31.1 pg (28.0-32.0); MEAN CORPUSCULAR VOLUME 91.5 fl (83.0-99.0); MEAN PLATELET VOLUME 9.5 fl (9.4-12.4); MONOCYTES ABSOLUTE AUTO 0.6 K/mm3 (0.0-0.8); MONOCYTES PERCENT AUTO 8.3 % (0.0-8.0); NEUTROPHILS ABSOLUTE AUTO 3.2 K/mm3 (1.8-7.7); NEUTROPHILS PERCENT AUTO 48.1 % (41.0-71.0); PLATELET COUNT,PLT 179 K/mm3 (150-400); RED BLOOD CELL COUNT 4.72 M/mm3 (4.52-5.90); WHITE BLOOD CELL COUNT,WBC 6.65 K/mm3 (3.9-11.3)
[2024-03-26 10:23] LABS: HEMOGLOBIN 14.7 gm/dl (14.0-18.0)
[2024-03-26 10:36] LABS: ALBUMIN 3.4 g/dl (3.4-5.0); BILIRUBIN TOTAL 1.4 mg/dL (0.2-1.0); BUN/CREATININE RATIO 13.8 (14-18); CALCIUM 8.8 mg/dL (8.5-10.1); CREATININE 1.3 mg/dL (0.7-1.3); EST CRCL DRUG DOSING (CG) 50.42 mL/min; MAGNESIUM 1.8 mg/dL (1.8-2.4); PHOSPHORUS 3.3 mg/dL (2.6-4.7); PROTEIN TOTAL,TP 6.8 g/dl (6.4-8.2)
[2024-03-26] MEDS: Benzocaine/Cetylpyridinium/Menthol Lozenge MUCMEM PRN (15:03)
[2024-03-27 04:28] LABS: BASOPHILS ABSOLUTE AUTO 0.1 K/mm3 (0.0-0.2); BASOPHILS PERCENT AUTO 0.9 % (0.0-1.0); EOSINOPHILS ABSOLUTE AUTO 0.5 K/mm3 (0.0-0.4); EOSINOPHILS PERCENT AUTO 7.7 % (0.0-6.0); HEMATOCRIT 40.4 % (42.0-52.0); HEMOGLOBIN 13.9 gm/dl (14.0-18.0); IMMATURE GRAN ABSOLUTE AUTO 0.02 K/mm3 (0.00-0.05); IMMATURE GRAN PERCENT AUTO 0.3 % (0.0-0.4); LYMPHOCYTES ABSOLUTE AUTO 2.4 K/mm3 (1.0-4.8); LYMPHOCYTES PERCENT AUTO 34.9 % (24.0-44.0); MEAN CORPUSCULAR HEMOGLOBIN 31.4 pg (28.0-32.0); MEAN CORPUSCULAR HGB CONC 34.4 g/dl (32.0-36.0); MEAN CORPUSCULAR VOLUME 91.2 fl (83.0-99.0); MEAN PLATELET VOLUME 9.2 fl (9.4-12.4); MONOCYTES ABSOLUTE AUTO 0.5 K/mm3 (0.0-0.8); MONOCYTES PERCENT AUTO 7.7 % (0.0-8.0); NEUTROPHILS ABSOLUTE AUTO 3.3 K/mm3 (1.8-7.7); NEUTROPHILS PERCENT AUTO 48.5 % (41.0-71.0); PLATELET COUNT,PLT 159 K/mm3 (150-400); RED BLOOD CELL COUNT 4.43 M/mm3 (4.52-5.90); WHITE BLOOD CELL COUNT,WBC 6.85 K/mm3 (3.9-11.3)
[2024-03-27 05:07] LABS: ALBUMIN 3.1 g/dl (3.4-5.0); BILIRUBIN TOTAL 1.1 mg/dL (0.2-1.0); BUN/CREATININE RATIO 15.8 (14-18); CREATININE 1.2 mg/dL (0.7-1.3); EST CRCL DRUG DOSING (CG) 54.63 mL/min; MAGNESIUM 1.9 mg/dL (1.8-2.4); PROTEIN TOTAL,TP 6.2 g/dl (6.4-8.2)
[2024-03-27 12:07] VITALS: PULSE 72
[2024-03-27 12:56] VITALS: BP 125/83
== END 2024-03-27 12:45 | disposition home or self-care (01) | DRG 247 ==
LOC: JD.ED 08:04 → JD.MS 13:31
PROVIDERS: ADMIT Family Medicine; ATTEND Internal Medicine
PROC: 0D9670Z Drainage of Stomach with Drainage Device, Via Natural or Artificial Opening (ICD-10-PCS; principal; 2024-03-25)
DX: K56.50 Intestinal adhesions [bands], unspecified as to partial versus complete obstruction (principal); H54.7 Unspecified visual loss; E78.00 Pure hypercholesterolemia, unspecified; J45.909 Unspecified asthma, uncomplicated; K21.9 Gastro-esophageal reflux disease without esophagitis; G43.909 Migraine, unspecified, not intractable, without status migrainosus; E66.9 Obesity, unspecified; I70.0 Atherosclerosis of aorta; N28.1 Cyst of kidney, acquired; N20.0 Calculus of kidney; I11.0 Hypertensive heart disease with heart failure; I50.9 Heart failure, unspecified; Z90.49 Acquired absence of other specified parts of digestive tract; Z95.2 Presence of prosthetic heart valve; Z79.82 Long term (current) use of aspirin; Z79.899 Other long term (current) drug therapy; Z87.11 Personal history of peptic ulcer disease; Z68.33 Body mass index [BMI] 33.0-33.9, adult; Z98.890 Other specified postprocedural states
CPT/HCPCS: 36415; 43752; 71045; 71045-26; 74018; 74018-26; 74019; 74019-26; 74177; 74177-26; 80053; 81001; 82947; 83690; 83735; 84100; 84484; 85025; 93005; 93010; 96361; 96374; 96375; 99285; 99285-25; A9270-GY; J1171; J1650; J1885; J2060; J2405; J2765; J3490; J7030; J7799; Q9967

== ENCOUNTER 2024-10-11 19:08 | Emergency (ER) | payer OTHER, MEDICARE ==
[2024-10-11] MEDS: Sodium Chloride 0.9% 500 ML IV ONE ×2 (19:40→20:47)
[2024-10-11] MEDS: Ondansetron 4 MG/2 ML SDV IVPUSH ONE (19:40)
[2024-10-11] MEDS ORDERED: Sodium Chloride 0.9% 10 ML Syringe FLUSH PRN (19:49)
[2024-10-11] MEDS: Sodium Chloride 0.9% 1,000 ML ONE (19:51)
[2024-10-11] MEDS: Ondansetron 4 MG/2 ML SDV ONE (19:52)
[2024-10-11 19:59] LABS: BASOPHILS ABSOLUTE AUTO 0.1 K/mm3 (0.0-0.2); BASOPHILS PERCENT AUTO 0.6 % (0.0-1.0); EOSINOPHILS ABSOLUTE AUTO 0.5 K/mm3 (0.0-0.4); EOSINOPHILS PERCENT AUTO 3.6 % (0.0-6.0); HEMATOCRIT 49.2 % (42.0-52.0); HEMOGLOBIN 16.5 gm/dl (14.0-18.0); IMMATURE GRAN ABSOLUTE AUTO 0.05 K/mm3 (0.00-0.05); IMMATURE GRAN PERCENT AUTO 0.4 % (0.0-0.4); LYMPHOCYTES ABSOLUTE AUTO 1.9 K/mm3 (1.0-4.8); LYMPHOCYTES PERCENT AUTO 13.7 % (24.0-44.0); MEAN CORPUSCULAR HEMOGLOBIN 30.8 pg (28.0-32.0); MEAN CORPUSCULAR HGB CONC 33.5 g/dl (32.0-36.0); MEAN PLATELET VOLUME 9.7 fl (9.4-12.4); MONOCYTES ABSOLUTE AUTO 0.7 K/mm3 (0.0-0.8); MONOCYTES PERCENT AUTO 4.8 % (0.0-8.0); NEUTROPHILS ABSOLUTE AUTO 10.8 K/mm3 (1.8-7.7); NEUTROPHILS PERCENT AUTO 76.9 % (41.0-71.0); PLATELET COUNT,PLT 246 K/mm3 (150-400); RED BLOOD CELL COUNT 5.35 M/mm3 (4.52-5.90); WHITE BLOOD CELL COUNT,WBC 14.08 K/mm3 (3.9-11.3)
[2024-10-11 20:13] LABS: A/G RATIO 1.1 (1-2); ANION GAP 17.1 (5-15); BILIRUBIN TOTAL 0.8 mg/dL (0.2-1.0); BUN/CREATININE RATIO 13.6 (14-18); CALCIUM 9.4 mg/dL (8.5-10.1); CREATININE 1.4 mg/dL (0.7-1.3); EST CRCL DRUG DOSING (CG) 47.69 mL/min; MAGNESIUM 1.8 mg/dL (1.8-2.4); POTASSIUM,K 4.1 mEq/L (3.5-5.1); PROTEIN TOTAL,TP 7.7 g/dl (6.4-8.2)
[2024-10-11] MEDS: Metoclopramide 10 MG/2 ML SDV IVPUSH ONE (21:44)
[2024-10-11] MEDS: Meclizine 25 MG Tab PO ONE (21:52)
[2024-10-11 22:41] LABS: APPEARANCE,URINE CLEAR (Clear); BILIRUBIN,URINE NEGATIVE (Negative); COLOR,URINE YELLOW (Yellow); GLUCOSE,URINE NEGATIVE (Negative); KETONES,URINE NEGATIVE (Negative); LEUKOCYTE ESTERASE,URINE NEGATIVE (Negative); NITRITE,URINE NEGATIVE (Negative); OCCULT BLOOD,URINE NEGATIVE (Negative); PROTEIN,URINE TRACE (Negative); UROBILINOGEN,URINE 0.2 (0.2-1.0)
[2024-10-11 22:47] LABS: BACTERIA,URINE FEW /hpf (FEW); MUCUS,URINE MODERATE /hpf (FEW); RBC,URINE 0-5 /hpf (0-5); SQUAMOUS EPITHELIAL CELLS,UR 0-5 /hpf (0-5); WBC,URINE 0-5 /hpf (0-5)
[2024-10-11] MEDS: diphenhydrAMINE 50 MG/ML SDV IVPUSH ONE (23:26)
[2024-10-12 00:55] VITALS: BP 138/80; PULSE 95
== END 2024-10-11 23:23 | disposition home or self-care (01) ==
LOC: JD.ED 19:08
DX: R11.2 Nausea with vomiting, unspecified (principal); R19.7 Diarrhea, unspecified; I11.0 Hypertensive heart disease with heart failure; I50.9 Heart failure, unspecified; E78.00 Pure hypercholesterolemia, unspecified; K21.9 Gastro-esophageal reflux disease without esophagitis; E66.9 Obesity, unspecified; Z79.82 Long term (current) use of aspirin; Z79.899 Other long term (current) drug therapy; Z88.5 Allergy status to narcotic agent; Z68.32 Body mass index [BMI] 32.0-32.9, adult
CPT/HCPCS: 36415; 80053; 81001; 83735; 85025; 93005; 96361; 96374; 96375; 99284; A9270; J2405; J2765; J7030

== ENCOUNTER 2024-10-12 09:03 | Inpatient (IN) | payer OTHER, MEDICARE ==
[2024-10-12 10:16] LABS: BASOPHILS PERCENT AUTO 0.4 % (0.0-1.0); EOSINOPHILS PERCENT AUTO 0.4 % (0.0-6.0); HEMATOCRIT 47.2 % (42.0-52.0); HEMOGLOBIN 15.7 gm/dl (14.0-18.0); IMMATURE GRAN ABSOLUTE AUTO 0.03 K/mm3 (0.00-0.05); IMMATURE GRAN PERCENT AUTO 0.4 % (0.0-0.4); LYMPHOCYTES ABSOLUTE AUTO 0.8 K/mm3 (1.0-4.8); LYMPHOCYTES PERCENT AUTO 9.5 % (24.0-44.0); MEAN CORPUSCULAR HEMOGLOBIN 30.9 pg (28.0-32.0); MEAN CORPUSCULAR HGB CONC 33.3 g/dl (32.0-36.0); MEAN CORPUSCULAR VOLUME 92.9 fl (83.0-99.0); MEAN PLATELET VOLUME 9.3 fl (9.4-12.4); MONOCYTES ABSOLUTE AUTO 0.3 K/mm3 (0.0-0.8); MONOCYTES PERCENT AUTO 3.6 % (0.0-8.0); NEUTROPHILS ABSOLUTE AUTO 6.9 K/mm3 (1.8-7.7); NEUTROPHILS PERCENT AUTO 85.7 % (41.0-71.0); PLATELET COUNT,PLT 202 K/mm3 (150-400); RED BLOOD CELL COUNT 5.08 M/mm3 (4.52-5.90); WHITE BLOOD CELL COUNT,WBC 8.07 K/mm3 (3.9-11.3)
[2024-10-12] MEDS: Ondansetron 4 MG/2 ML SDV IVPUSH ONE (10:27)
[2024-10-12] MEDS: Sodium Chloride 0.9% 1,000 ML IV ONE (10:28)
[2024-10-12 10:29] LABS: INR 1.12; PROTHROMBIN TIME 11.8 SECONDS (9.7-12.0)
[2024-10-12 10:30] LABS: PTT,PARTIAL THROMBOPLSTIN TIME 29.1 SECONDS (21.7-31.4)
[2024-10-12 10:33] LABS: ALBUMIN 3.6 g/dl (3.4-5.0); ANION GAP 14.8 (5-15); BILIRUBIN TOTAL 1.2 mg/dL (0.2-1.0); BUN/CREATININE RATIO 16.4 (14-18); C-REACTIVE PROTEIN 2.93 mg/dL (<0.30); CALCIUM 8.9 mg/dL (8.5-10.1); CREATININE 1.4 mg/dL (0.7-1.3); EST CRCL DRUG DOSING (CG) 46.14 mL/min; MAGNESIUM 1.7 mg/dL (1.8-2.4); POTASSIUM,K 3.8 mEq/L (3.5-5.1); PROTEIN TOTAL,TP 7.4 g/dl (6.4-8.2)
[2024-10-12 10:35] LABS: HEMOGLOBIN A1C 5.9 %
[2024-10-12 10:50] LABS: LACTIC ACID 2.9 mmol/L (0.4-2.0)
[2024-10-12] MEDS: Metoclopramide 10 MG/2 ML SDV IVPUSH ONE (11:50)
[2024-10-12] MEDS: Lactated Ringers 1,000 ML IV ONE (11:52)
[2024-10-12 12:44] LABS: APPEARANCE,URINE CLEAR (Clear); BILIRUBIN,URINE NEGATIVE (Negative); COLOR,URINE YELLOW (Yellow); GLUCOSE,URINE NEGATIVE (Negative); KETONES,URINE NEGATIVE (Negative); LEUKOCYTE ESTERASE,URINE NEGATIVE (Negative); NITRITE,URINE NEGATIVE (Negative); OCCULT BLOOD,URINE NEGATIVE (Negative); PROTEIN,URINE NEGATIVE (Negative); UROBILINOGEN,URINE 0.2 (0.2-1.0)
[2024-10-12] MEDS: SUMAtriptan 6 MG/0.5 ML SDV SUBCUT ONE (14:29)
[2024-10-12] MEDS: Enoxaparin 40 MG/0.4 ML Syringe SUBCUT SCH (14:29)
[2024-10-12] MEDS: NS + KCl 20mEq/L 1,000 ML IV SCH (14:31)
[2024-10-12] MEDS: Magnesium Sulfate 2 GM/50 mL 2 GM in Premix Bag 1 BAG IV ONE (14:31)
[2024-10-12] MEDS: Acetaminophen 325 MG Tab PO PRN (16:47)
[2024-10-12] MEDS ORDERED: Ondansetron 4 MG/2 ML SDV IVPUSH PRN (17:45)
[2024-10-12] MEDS: Metoprolol Succinate 25 MG Tab.ER PO SCH (20:09)
[2024-10-12] MEDS ORDERED: Metoprolol Succinate 50 MG Tab.ER PO SCH (21:00)
[2024-10-12] MEDS ORDERED: Non-Formulary Medication 1 Each (Omeprazole Magnesium [Prilosec Otc] 20 MG Tablet.Dr) PO SCH (21:00)
[2024-10-13 04:37] VITALS: BP 134/83
[2024-10-13 05:35] LABS: BASOPHILS PERCENT AUTO 0.9 % (0.0-1.0); EOSINOPHILS ABSOLUTE AUTO 0.1 K/mm3 (0.0-0.4); EOSINOPHILS PERCENT AUTO 2.9 % (0.0-6.0); HEMATOCRIT 41.4 % (42.0-52.0); IMMATURE GRAN ABSOLUTE AUTO 0.01 K/mm3 (0.00-0.05); IMMATURE GRAN PERCENT AUTO 0.2 % (0.0-0.4); LYMPHOCYTES ABSOLUTE AUTO 1.3 K/mm3 (1.0-4.8); LYMPHOCYTES PERCENT AUTO 29.7 % (24.0-44.0); MEAN CORPUSCULAR HEMOGLOBIN 31.1 pg (28.0-32.0); MEAN CORPUSCULAR HGB CONC 33.1 g/dl (32.0-36.0); MEAN CORPUSCULAR VOLUME 93.9 fl (83.0-99.0); MEAN PLATELET VOLUME 9.3 fl (9.4-12.4); MONOCYTES ABSOLUTE AUTO 0.5 K/mm3 (0.0-0.8); MONOCYTES PERCENT AUTO 11.8 % (0.0-8.0); NEUTROPHILS ABSOLUTE AUTO 2.4 K/mm3 (1.8-7.7); NEUTROPHILS PERCENT AUTO 54.5 % (41.0-71.0); PLATELET COUNT,PLT 157 K/mm3 (150-400); RED BLOOD CELL COUNT 4.41 M/mm3 (4.52-5.90); WHITE BLOOD CELL COUNT,WBC 4.41 K/mm3 (3.9-11.3)
[2024-10-13 05:40] LABS: HEMOGLOBIN 13.7 gm/dl (14.0-18.0)
[2024-10-13] MEDS: Pantoprazole 40 MG Tab.CR PO SCH (05:46)
[2024-10-13 06:07] LABS: A/G RATIO 0.9 (1-2); BILIRUBIN TOTAL 0.9 mg/dL (0.2-1.0); BUN/CREATININE RATIO 15.6 (14-18); C-REACTIVE PROTEIN 4.47 mg/dL (<0.30); CREATININE 0.9 mg/dL (0.7-1.3); EST CRCL DRUG DOSING (CG) 71.78 mL/min; MAGNESIUM 1.9 mg/dL (1.8-2.4); PROTEIN TOTAL,TP 6.2 g/dl (6.4-8.2)
[2024-10-13] MEDS: Aspirin 81 MG Tab.EC PO SCH (08:41)
[2024-10-13 08:42] VITALS: PULSE 72
[2024-10-13] MEDS: Rosuvastatin 10 MG Tab PO SCH (08:42)
[2024-10-13] MEDS ORDERED: Aspirin 81 MG Tab.EC PO SCH (09:00)
[2024-10-13] MEDS ORDERED: Non-Formulary Medication 1 Each (Rosuvastatin Calcium 20 MG Tablet) PO SCH (09:00)
[2024-10-13] MEDS ORDERED: FENOFIBRATE 160 MG PO SCH ×2 (09:00)
== END 2024-10-13 11:08 | disposition home or self-care (01) | DRG 392 ==
LOC: JD.ED 09:03 → JD.MS 12:59
PROVIDERS: ADMIT Student in an Organized Health Care Education/Training Program; ATTEND Student in an Organized Health Care Education/Training Program
DX: K52.9 Noninfective gastroenteritis and colitis, unspecified (principal); N17.9 Acute kidney failure, unspecified; K29.00 Acute gastritis without bleeding; H26.9 Unspecified cataract; H54.7 Unspecified visual loss; I11.0 Hypertensive heart disease with heart failure; E78.00 Pure hypercholesterolemia, unspecified; I50.9 Heart failure, unspecified; K21.9 Gastro-esophageal reflux disease without esophagitis; J45.909 Unspecified asthma, uncomplicated; K27.9 Peptic ulcer, site unspecified, unspecified as acute or chronic, without hemorrhage or perforation; M54.9 Dorsalgia, unspecified; G89.29 Other chronic pain; G43.909 Migraine, unspecified, not intractable, without status migrainosus; R42 Dizziness and giddiness; E66.9 Obesity, unspecified; I65.23 Occlusion and stenosis of bilateral carotid arteries; R73.03 Prediabetes; G44.011 Episodic cluster headache, intractable; E83.42 Hypomagnesemia; H53.149 Visual discomfort, unspecified; F40.298 Other specified phobia; I25.10 Atherosclerotic heart disease of native coronary artery without angina pectoris; Z95.2 Presence of prosthetic heart valve; Z87.898 Personal history of other specified conditions; Z79.899 Other long term (current) drug therapy; Z88.8 Allergy status to other drugs, medicaments and biological substances; Z98.890 Other specified postprocedural states; Z68.35 Body mass index [BMI] 35.0-35.9, adult; Z79.82 Long term (current) use of aspirin; Z90.49 Acquired absence of other specified parts of digestive tract
CPT/HCPCS: 36415; 80053; 81003; 83036; 83605; 83735; 84100; 85025; 85610; 85730; 86140; 87040; 87045; 87046; 87328; 87329; 87899; 96361; 96374; 96375; 99284-25; A9270-GY; J2405; J2765; J3030; J3475; J3480; J7030; J7120